=== PATIENT | male | born 1945 | race Caucasian/White ===

== ENCOUNTER 2018-05-20 10:31 | Emergency (ER) | payer OTHER, SELFPAY ==
[2018-05-20] VITALS (34 sets, daily range): BP systolic 119–154; BP diastolic 77–110; PULSE 63–76; RESP 14–42; TEMP 36.7; O2SAT 90–96
--- NOTE | 2018-05-20 11:16 | DI.CT_ITS ---
SYMPTOMS/DIAGNOSIS: FACIAL BRUISE, PARESTHESIA DIGITS 3-5, MID THORACIC BACK PAIN S/P FALL 10-12 FEET [address]: Noncontrast cranial CT was performed. No calvarial fracture identified. Visualized paranasal sinuses and mastoid air cells appear clear. There is soft tissue hematoma/edema over the left frontotemporal region. No evidence of acute intracranial hemorrhage, mass effect or midline shift. CONCLUSION: No evidence of acute intracranial injury. CERVICAL SPINE CT: CT examination of the cervical spine was performed utilizing multislice acquisition and multiplanar reconstruction. The tracheolaryngeal structures appear intact. No gross soft tissue swelling is seen in the cervical region. No cervical mass or adenopathy seen. There are moderate degenerative changes of the joints of the cervical spine. Note is made of a minimally displaced fracture through the lamina and articular facets on the right at C7. C7 vertebral body appears intact. There is a fracture of the T1 vertebral body, which involves the anterior superior aspect of the vertebral body with mild loss of height anteriorly. No posterior element fracture identified involving T1. T2 appears intact as visualized. No additional cervical spine fractures seen. CONCLUSION: 1. C7 fracture, essentially nondisplaced, involving lamina and facets on the right. 2. T1 vertebral body fracture anterosuperiorly with mild loss of height. 3. No gross deformity of the spinal canal identified. No unstable fractures seen. THORACIC AND LUMBAR SPINE CT: CT examination of the thoracic and lumbar spine was performed utilizing multislice acquisition and multiplanar reconstruction. Note is again made of T1 anterior superior vertebral body fracture as noted on cervical spine CT, as well as the C7 right lamina/facet fracture. No additional fracture identified in thoracic or lumbar spine. Visualized lungs appear clear. Tracheobronchial tree appears intact. There is an aneurysm of the ascending aorta measuring about 51 mm in diameter. There is an abdominal aortic aneurysm measuring 47 mm in diameter, which is infrarenal. 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 Incidental note is made of a presumed right renal cyst measuring 27 mm in diameter. CONCLUSION: 1. T1 vertebral body fracture, presumably stable. No additional fractures seen. 2. 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
--- NOTE | 2018-05-20 11:20 | W.ED.GENAD ---
Discharge Plan Disposition Patient Disposition: [facility] Discharge Details Chief Complaint: Trauma Clinical Impression: C7 cervical fracture, Fracture of thoracic spine at T1-T2 level, Paresthesia Primary Care Provider: Conchita Leggett ED Provider: Jeff Uribe Home Meds and New Rx's Prescriptions: No Action bupropion HCl 300 mg tablet extended release 24 hr 300 mg PO QAM Qty: 90 RF: 1 bupropion HCl 150 mg tablet extended release 24 hr 450 mg PO QAM Qty: 270 RF: 2 venlafaxine 75 mg capsule,extended release 24hr 75 mg PO DAILY Qty: 90 RF: 3 Hold Instructions: Changed by Provider venlafaxine 37.5 mg tablet extended release 24hr 37.5 mg PO DAILY Qty: 90 RF: 3 Hold Instructions: Changed by Provider irbesartan 300 mg tablet 300 mg PO DAILY RF: 0 venlafaxine 150 mg capsule,extended release 24hr 150 mg PO DAILY RF: 0 nystatin 100,000 unit/gram powder 1 applic TP BID PRN (Reason: intertrigo) Qty: 180 RF: 3 FreeStyle Lite Strips strip 1 ea Miscellaneous DAILY Qty: 100 RF: 0 aspirin [Aspir-81] 81 MG tablet,delayed release (DR/EC) 1 tab PO DAILY RF: 0 Hold Instructions: Changed by Provider ropinirole 1 MG tablet 2 tab PO HS RF: 0 lancets [FreeStyle Lancets] 1 EACH misc 1 ea Miscellaneous DAILY Qty: 100 RF: 3 metformin 750 mg tablet extended release 24 hr 750 mg PO DAILY Qty: 90 RF: 3 atorvastatin 40 mg tablet 40 mg PO DAILY Qty: 90 RF: 3 celecoxib 200 mg capsule 200 mg PO DAILY Qty: 90 RF: 3 Hold Instructions: Changed by Provider irbesartan-hydrochlorothiazide [Avalide] 150-12.5 mg tablet 2 tab PO DAILY Qty: 180 RF: 3 Hold Instructions: Changed by Provider omeprazole 40 mg capsule,delayed release(DR/EC) 40 mg PO DAILY Qty: 90 RF: 3 metoprolol succinate 50 mg tablet extended release 24 hr 50 mg PO DAILY Qty: 90 RF: 1 amlodipine 10 mg tablet 10 mg PO DAILY RF: 0 Hold Instructions: Changed by Provider lactulose 20 gram/30 mL solution 20 gm PO DAILY PRNRF: 0 vitamin B complex 1 EACH capsule 1 cap DAILY RF: 0 acetaminophen [Acetaminophen Extra Strength] 500 mg Tablet 1,000 mg PO Q6H PRNRF: 0 diphenhydramine HCl 25 MG capsule 25 mg PO DAILY RF: 0 Discharge Data Discharge Date/Time-TO BE ENTERED AT DEPARTURE: 05/20/18 14:40 Medical Decision Making 11:20 --73-year-old male presents 4 days after fall from 6 foot ladder with head trauma, complaining of midline mid back pain. Paresthesia bilateral hands improving. Rigid collar placed by nursing in triage. Patient has considerable facial ecchymosis. Consider intracranial traumatic hemorrhage versus skull fracture. Plan to CT head. Patient has had paresthesias that are improved bilateral hands digits 3-5. Consider cervical fracture versus spinal contusion. Plan to obtain CT of the cervical spine. I am concerned about spinal fracture given pain. I will obtain CT of the thoracic and lumbar spine. Patient does have a history of AAA, has no abdominal tenderness or pain. 14:00 --I spoke with Dr. West about radiology results: CT head negative. No bleed no fracture. CT cervical spine reveals C7 posterior element fracture. CT thoracic spine shows T1 anterior vetebral body fracture. An aspen collar was applied and properly fitted by me while nursing maintained cspine immobility. Incidental findings of ascending aortic aneurysm and AAA noted. Ascending aortic aneurysm was noted on prior echocardiogram 03/16/2017. Chest x-ray reviewed: No pneumothorax. Called [facility] to request consultation. Awaiting return call. Images sent for review. 14:09 -- I spoke with Dr. Tinsley - will accept transfer. HPI General Mode of arrival: ambulatory. Date/Time Provider Initiated Documentation: 05/20/18 10:54. Limitations to Documentation: no limitations. Information obtained by: patient. HPI Narrative: 73-year-old male with multiple medical problems presents with chief complaint of back pain. Patient notes he was standing 6 feet up on a ladder 4 days ago and fell to the ground. He did hit his head. He did not lose consciousness. He immediately developed paresthesia tingling of his right third to fifth digits. He subsequently developed tingling of his left third to fifth digits. This tingling has improved and now only feels slightly swollenbilaterally. Had no weakness in his hands. He denies neck pain. He does have substantial bruising to his face and forehead. Back pain started after the fall. Back pain is worse in the morning. Improves through the course of the day. Pain is moderate to severe. Localized mid back midline. Feels sore. Patient denies chest pain, shortness of breath, abdominal pain, pelvic pain. Patient is on low-dose aspirin daily. Also on Celebrex. Related Data Home Medications Medication Instructions Recorded Confirmed aspirin [Aspir-81] 1 tab PO DAILY tab 05/24/12 06/04/18 ropinirole 2 tab PO HS 05/29/12 06/04/18 vitamin B complex 1 cap DAILY 04/23/13 06/04/18 lancets [FreeStyle Lancets] #100 ea 05/31/16 06/04/18 diphenhydramine HCl 25 mg PO DAILY 08/06/17 06/04/18 metformin ER 750 mg 750 mg PO DAILY #90 tab-cap 10/30/17 06/04/18 tablet,extended release 24 hr atorvastatin 40 mg tablet 40 mg PO DAILY #90 tab-cap 11/21/17 06/04/18 celecoxib 200 mg capsule 200 mg PO DAILY #90 tab-cap 11/21/17 06/04/18 irbesartan 150 2 tab PO DAILY #180 tab 11/21/17 05/20/18 mg-hydrochlorothiazide 12.5 mg tablet bupropion HCl XL 300 mg 24 hr 300 mg PO QAM #90 tab 01/01/18 06/04/18 tablet, extended release omeprazole 40 mg capsule,delayed 40 mg PO DAILY #90 cap.sr 03/19/18 06/04/18 release bupropion HCl XL 150 mg 24 hr 450 mg PO QAM #270 tab 04/09/18 06/04/18 tablet, extended release metoprolol succinate ER 50 mg 50 mg PO DAILY #90 tab 04/17/18 06/04/18 tablet,extended release 24 hr venlafaxine ER 37.5 mg 37.5 mg PO DAILY #90 tab-cap 05/07/18 06/04/18 tablet,extended release 24 hr venlafaxine ER 75 mg 75 mg PO DAILY #90 tab-cap 05/07/18 06/04/18 capsule,extended release 24 hr acetaminophen [Acetaminophen Extra 1,000 mg PO Q6H PRN 05/20/18 06/04/18 Strength] amlodipine 10 mg tablet 10 mg PO DAILY 05/30/18 06/04/18 lactulose 20 gram/30 mL oral 20 gm PO DAILY PRN ml 05/30/18 06/04/18 solution blood sugar diagnostic strips #100 strip 06/04/18 06/04/18 irbesartan 300 mg tablet 300 mg PO DAILY 06/04/18 06/04/18 nystatin 100,000 unit/gram topical 1 applic TP BID PRN #180 gm 06/04/18 06/04/18 powder venlafaxine ER 150 mg 150 mg PO DAILY 06/04/18 06/04/18 capsule,extended release 24 hr Previous Rx's Medication Instructions Recorded metformin ER 750 mg 750 mg PO DAILY #90 tab-cap 10/30/17 tablet,extended release 24 hr atorvastatin 40 mg tablet 40 mg PO DAILY #90 tab-cap 11/21/17 celecoxib 200 mg capsule 200 mg PO DAILY #90 tab-cap 11/21/17 irbesartan 150 2 tab PO DAILY #180 tab 11/21/17 mg-hydrochlorothiazide 12.5 mg tablet bupropion HCl XL 300 mg 24 hr 300 mg PO QAM #90 tab 01/01/18 tablet, extended release omeprazole 40 mg capsule,delayed 40 mg PO DAILY #90 cap.sr 03/19/18 release bupropion HCl XL 150 mg 24 hr 450 mg PO QAM #270 tab 04/09/18 tablet, extended release metoprolol succinate ER 50 mg 50 mg PO DAILY #90 tab 04/17/18 tablet,extended release 24 hr venlafaxine ER 37.5 mg 37.5 mg PO DAILY #90 tab-cap 05/07/18 tablet,extended release 24 hr venlafaxine ER 75 mg 75 mg PO DAILY #90 tab-cap 05/07/18 capsule,extended release 24 hr blood sugar diagnostic strips #100 strip 06/04/18 nystatin 100,000 unit/gram topical 1 applic TP BID PRN #180 gm 06/04/18 powder Allergies Allergy/AdvReac Type Severity Reaction Status Date / Time codeine AdvReac Intermediate N/V Verified 06/04/18 10:07 General Stated Complaint: Trauma SUHAS: 3 Review of Systems Review of Systems All systems reviewed & are unremarkable except as noted in HPI and below PFSH Medical History AAA (abdominal aortic aneurysm) (Acute) Surgical History Arthroplasty of knee Extraction of cataract Great toe implant (12/01/14) Repair of inguinal hernia Tonsillectomy and adenoidectomy Family History Mother Substance abuse Diabetes Essential hypertension Hyperlipidemia Sister Neoplasm Social History Smoking/Tobacco Use Status: Former Tobacco Use Alcohol Intake: current Alcohol Intake frequency: holidays/special occasions only Drug use: Never Substance use type: does not use Household members: family Housing: house What type of physical activity do you participate in: none 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 Working smoke detector in home: Yes Fire extinguisher in home: Yes Carbon monox detector in home: Yes Do you feel safe in your relationship?: Yes Exam Const General: cooperative and no acute distress HENMT Head: no palpable skull fracture, raccoon eyes, scalp tenderness (left frontal) and periorbital ecchymosis Ears: other (tragus with bruising left) Mouth: moist mucous membranes Eyes Conjunctivae: normal conjunctivae Sclera: normal sclerae EOM: EOM intact bilaterally Neck Neck: trachea midline, supple and other (collar intact) Chest Chest: no localized rib tenderness Resp Auscultation: clear to auscultation bilaterally, no rales, no rhonchi and no wheezes Cardio Jugular venous pressure: no JVD Rate: regular rate and not tachycardic Rhythm: regular rhythm GI Palpation: soft, not firm, no guarding, no masses, not rigid and nontender Back/Spine/Pelvis Back: ecchymosis (Left mid lateral back bruising noted, no significant tenderness in the area) Thoracic/Lumbar Spine: thoracic spinal tenderness (midline low thoracic) Pelvis: no pain with anterior-posterior compression and no pain with lateral compression Skin General skin exam: no rashes or lesions noted Neuro General: alert, awake, oriented x3 and tone normal Cranial Nerves: CN's II-XI intact bilaterally Speech: speech normal Motor: muscle tone normal throughout and strength 5/5 throughout Sensory Exam: no sensory deficits noted Extrem General: no edema Course Vital Signs Temperature 36.7 C 05/20/18 10:42 Pulse 74 05/20/18 10:42 Respiratory Rate 20 05/20/18 10:42 Blood Pressure 141/101 H 05/20/18 10:42 Pulse Oximetry 95 05/20/18 10:42 Temperature 36.7 C 05/20/18 10:42 Temperature Source Temporal Artery Scan 05/20/18 10:42 Pulse 74 05/20/18 10:42 Respiratory Rate 20 05/20/18 10:42 Respiratory Effort Non-Labored 05/20/18 10:57 Respiratory Depth Normal 05/20/18 10:57 Respiratory Pattern Normal 05/20/18 10:57 Blood Pressure 141/101 H 05/20/18 10:42 Blood Pressure Position Supine 05/20/18 10:42 Pulse Oximetry 95 05/20/18 10:42 Oxygen Delivery Method Room Air 05/20/18 10:42 Oxygen Flow Rate 0 05/20/18 10:42 Pain Level 8 05/20/18 10:42
[2018-05-20 12:19] LABS: Abs Immature Grans 0.03 k/cumm (0.0-0.09); Absolute Basophil Count 0.02 k/cumm (0.0-0.2); Absolute Eosinophil Count 0.15 k/cumm (0.0-0.7); Absolute Lymphocyte Count 1.66 k/cumm (1.2-3.4); Absolute Monocyte Count 1.28 k/cumm (0.11-0.7); Absolute Neutrophil Count 6.97 k/cumm (1.2-6.7); Basophils % 0.2; Eosinophils % 1.5; HCT 43.7 % (40.0-50.0); HGB 14.5 g/dL (13.5-17.5); Immature Grans % 0.3; Lymphocytes % 16.4; Mean Corp. HGB Concentration 33.2 g/dL (32.0-36.0); Mean Corpuscular Volume 90.3 fL (80-95); Monocytes % 12.7; Neutrophils % 68.9; Platelet Count 176 x1000/uL (130-400); RBC 4.84 m/cumm (4.50-6.00); RBC Distribution Width 14.6 % (11.8-14.1); White Blood Cell Count 10.11 k/cumm (4.4-10.8)
[2018-05-20 12:32] LABS: ALT 74 U/L (12-78); AST 37 U/L (15-37); Albumin 3.8 g/dL (3.4-5.0); Alkaline Phosphatase 94 U/L (46-116); Anion Gap 12.9 mmol/L (3-11); BUN 18 mg/dL (7-18); Bilirubin, Total 1.2 mg/dL (0.2-1.0); CO2 25.1 mmol/L (21.0-32.0); CREATININE 1.02 mg/dL (0.70-1.30); Calcium 9.6 mg/dL (8.5-10.1); Chloride 100 mmol/L (98-107); Glucose 124 mg/dL (70-100); Potassium 3.4 mmol/L (3.5-5.1); Sodium 138 mmol/L (136-145); Total Protein 7.9 g/dL (6.4-8.2)
--- NOTE | 2018-05-20 13:35 | DI.RAD_ITS ---
SYMPTOMS/DIAGNOSIS: TIBIAL PAIN, SWELLING, TENDERNESS TO PALPATION ANTERIOR S/P FALL 10-12 FEET RIGHT LEG: Four views were obtained. No fracture is seen. The ankle mortise appears well maintained. SUPINE AP CHEST: The heart is not enlarged. The lungs appear grossly clear and well expanded. CONCLUSION: No evidence of acute disease.
== END 2018-05-20 14:40 | disposition short-term general hospital (02) ==
PROVIDERS: Emergency Provider Student in an Organized Health Care Education/Training Program; PCP Internal Medicine
DX: S12.600A Unspecified displaced fracture of seventh cervical vertebra, initial encounter for closed fracture (principal); S22.019A Unspecified fracture of first thoracic vertebra, initial encounter for closed fracture; R20.2 Paresthesia of skin; I71.4 Abdominal aortic aneurysm, without rupture; W11.XXXA Fall on and from ladder, initial encounter; E11.9 Type 2 diabetes mellitus without complications
CPT/HCPCS: 80053; 99284; L0172; 70450; 71045; 72125; 72128; 72131; 73590; 85025

== ENCOUNTER 2018-11-16 10:31 | Emergency (ER) | payer OTHER, SELFPAY ==
[2018-11-16 10:36] VITALS: BP 176/108; PULSE 70; RESP 16; TEMP 36.8; O2SAT 98
--- NOTE | 2018-11-16 10:54 | ED.GENADUL_ITS ---
Discharge Plan Disposition Patient Disposition: HOME Condition: Improving Discharge Details Chief Complaint: Laceration Clinical Impression: Laceration of left thumb Primary Care Provider: Conchita Leggett ED Provider: Wes Shrestha Home Meds and New Rx's Prescriptions: Continued [id number] [Pcltap-Oahel-SAA (with antiox)] 500-500-66.7 mg tablet PO DAILY RF: 0 PreserVision AREDS 14,320-226-200 nree-ij-kgad capsule 1 cap PO BID RF: 0 bupropion HCl 150 mg tablet extended release 24 hr 450 mg PO QAM Qty: 270 RF: 2 nystatin 100,000 unit/gram powder 1 applic TP BID PRN (Reason: intertrigo) Qty: 180 RF: 3 (DME) FreeStyle Lite Strips strip 1 ea Miscellaneous DAILY Qty: 100 RF: 0 diclofenac sodium [Voltaren] 1 % gel 4 gm TP QID Qty: 100 RF: 3 amlodipine 5 mg tablet 5 mg PO DAILY Qty: 90 RF: 3 metoprolol succinate 50 mg tablet extended release 24 hr 50 mg PO DAILY Qty: 90 RF: 3 atorvastatin 40 mg tablet 40 mg PO DAILY Qty: 90 RF: 3 aspirin [Aspir-81] 81 MG tablet,delayed release (DR/EC) 1 tab PO DAILY RF: 0 Hold Instructions: Changed by Provider ropinirole 1 MG tablet 2 tab PO HS RF: 0 (DME) lancets [FreeStyle Lancets] 1 EACH misc 1 ea Miscellaneous DAILY Qty: 100 RF: 3 metformin 750 mg tablet extended release 24 hr 750 mg PO DAILY Qty: 90 RF: 3 celecoxib 200 mg capsule 200 mg PO DAILY Qty: 90 RF: 3 Hold Instructions: Changed by Provider omeprazole 40 mg capsule,delayed release(DR/EC) 40 mg PO DAILY Qty: 90 RF: 3 irbesartan 300 mg tablet 300 mg PO DAILY Qty: 90 RF: 3 vitamin B complex 1 EACH capsule 1 cap DAILY RF: 0 acetaminophen [Acetaminophen Extra Strength] 500 mg Tablet 1,000 mg PO Q6H PRNRF: 0 gabapentin 100 mg capsule 300 mg PO DAILY RF: 0 diphenhydramine HCl 25 MG capsule 25 mg PO DAILY RF: 0 Discharge Instructions Instructions: Laceration (ED) Additional Instructions: Return for fever, redness, foul-smelling discharge from the wound or any other acute concerns. Please follow-up with orthopedics in clinic. Call the office for a follow-up appointment. The number is [phone]. May use Tylenol and ibuprofen as needed for discomfort. Medical Decision Making 73-year-old male was using a table saw, pushing the word with his left hand when he felt immediate pain and bleeding on the volar surface of the left thumb. His tetanus status is up-to-date. On exam he is a macerated and irregular laceration on the distal volar surface of the thumb. Two-point discrimination is intact on both sides at 1 cm, patient with single-point discrimination only on the distal volar pad of the thumb. Referred for x-ray which does not reveal underlying bony injury. Wound irrigated and 3 sutures placed with wound edge opposition, dressed with Xeroform and Kerlix. We will refer to orthopedics for recheck given both the partial avulsion of skin and the diminished sensation. He and his who is a nurse understand homecare as well as return precautions. HPI General Mode of arrival: ambulatory . Date/Time Provider Initiated Documentation: 11/16/18 10:38 . Limitations to Documentation: no limitations . Information obtained by: patient . History of Present Illness 73 year old M presents to the emergency department with the chief complaint of Left thumb laceration from table saw, described as moderate, Quality is described as constant, and is localized to the left and upper extremity. Patient reports no radiation. Patient started experiencing this hour(s) and it has been constant. No relieving factors improve symptom(s), No exacerbating factors reported . Patient notes no other symptoms.. Patient did receive the following treatments prior to arrival, none Related Data Home Medications Medication Instructions Recorded Confirmed aspirin [Aspir-81] 1 tab PO DAILY tab 05/24/12 11/16/18 ropinirole 2 tab PO HS 05/29/12 11/16/18 vitamin B complex 1 cap DAILY 04/23/13 11/16/18 lancets [FreeStyle Lancets] #100 ea 05/31/16 10/30/18 diphenhydramine HCl 25 mg PO DAILY 08/06/17 11/16/18 metformin 750 mg tablet,extended 750 mg PO DAILY #90 tab-cap 10/30/17 11/16/18 release 24 hr celecoxib 200 mg capsule 200 mg PO DAILY #90 tab-cap 11/21/17 11/16/18 omeprazole 40 mg capsule,delayed 40 mg PO DAILY #90 cap.sr 03/19/18 11/16/18 release bupropion HCl 150 mg 24 hr tablet, 450 mg PO QAM #270 tab 04/09/18 11/16/18 extended release acetaminophen [Acetaminophen Extra 1,000 mg PO Q6H PRN 05/20/18 11/16/18 Strength] blood sugar diagnostic #100 strip 06/04/18 10/30/18 nystatin 100,000 unit/gram topical 1 applic TP BID PRN #180 gm 06/04/18 11/16/18 powder irbesartan 300 mg tablet 300 mg PO DAILY #90 tab 06/17/18 11/16/18 [id number]-[id number] tab PO DAILY tab 07/02/18 10/30/18 149-hyalur 500 mg-500 mg-66.7 mg tablet vitamins A,C,A-laag-rislkp 14,320 1 cap PO BID 07/02/18 11/16/18 unit-226 mg-200 unit capsule diclofenac sodium 1 % topical gel 4 gm TP QID #100 gm 10/30/18 11/16/18 amlodipine 5 mg tablet 5 mg PO DAILY #90 tab 10/31/18 11/16/18 atorvastatin 40 mg tablet 40 mg PO DAILY #90 tab-cap 10/31/18 11/16/18 metoprolol succinate 50 mg 50 mg PO DAILY #90 tab 10/31/18 11/16/18 tablet,extended release 24 hr gabapentin 300 mg PO DAILY 11/16/18 11/16/18 Previous Rx's Medication Instructions Recorded metformin 750 mg tablet,extended 750 mg PO DAILY #90 tab-cap 10/30/17 release 24 hr celecoxib 200 mg capsule 200 mg PO DAILY #90 tab-cap 11/21/17 omeprazole 40 mg capsule,delayed 40 mg PO DAILY #90 cap.sr 03/19/18 release bupropion HCl 150 mg 24 hr tablet, 450 mg PO QAM #270 tab 04/09/18 extended release blood sugar diagnostic #100 strip 06/04/18 nystatin 100,000 unit/gram topical 1 applic TP BID PRN #180 gm 06/04/18 powder irbesartan 300 mg tablet 300 mg PO DAILY #90 tab 06/17/18 diclofenac sodium 1 % topical gel 4 gm TP QID #100 gm 10/30/18 amlodipine 5 mg tablet 5 mg PO DAILY #90 tab 10/31/18 atorvastatin 40 mg tablet 40 mg PO DAILY #90 tab-cap 10/31/18 metoprolol succinate 50 mg 50 mg PO DAILY #90 tab 10/31/18 tablet,extended release 24 hr Allergies Allergy/AdvReac Type Severity Reaction Status Date / Time codeine AdvReac Intermediate N/V Verified 10/30/18 11:15 General Stated Complaint: Laceration SUHAS: 4 Review of Systems Review of Systems Narrative: Decreased sensation at the tip of thumb. No other injury. Tetanus up-to-date. [facility] Medical History AAA (abdominal aortic aneurysm) (Acute) Surgical History Arthroplasty of knee Extraction of cataract Great toe implant (12/01/14) Jason Aviles Repair of inguinal hernia Tonsillectomy and adenoidectomy Family History Mother Substance abuse Diabetes Essential hypertension Hyperlipidemia Sister Neoplasm lung Ca with Mets Social History Smoking/Tobacco Use Status: Former Tobacco Use Alcohol Intake: current Alcohol Intake frequency: holidays/special occasions only Drug use: Never Substance use type: does not use Household members: spouse Housing: house Communication Needs: Corrective Lenses current occupation: retired What is your relationship status?: Panel score (0-1 are the most socially isolated patients): [address] 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 Pleasant, well groomed, interactive. HEAD: Normocephalic, atraumatic ENT: Mucous membranes moist, oropharynx unremarkable, External ear exam unremarkable EYES: PERRL, EOMI NECK: Full ROM, no CORKY, no menigismus EXT: Full ROM, no edema, no rash. Left thumb with volar oblique laceration. Two-point discrimination intact on chest sides of the digit, diminished sensation and unable to discriminate 2 points on distal pad of the thumb. Capillary refill less than 2 seconds. Neuro: Grossly normal neurologic exam, conversant, interactive. Psych: Speech fluent, thoughts congruent, affect normal Course Vital Signs Vital signs: Vital Signs Temperature 36.8 C 11/16/18 10:36 Pulse 70 11/16/18 10:36 Respiratory Rate 16 11/16/18 10:36 Blood Pressure 176/108 H 11/16/18 10:36 Pulse Oximetry 98 11/16/18 10:36 Temperature 36.8 C 11/16/18 10:36 Temperature Source Skin 11/16/18 10:36 Pulse 70 11/16/18 10:36 Respiratory Rate 16 11/16/18 10:36 Respiratory Effort Non-Labored 11/16/18 10:45 Blood Pressure 176/108 H 11/16/18 10:36 Pulse Oximetry 98 11/16/18 10:36 Pain Level 2 11/16/18 10:36 Procedures Laceration Laceration 1: Site: hand Side (If applicable): left Size (cm): 3.5 Description: irregular Depth: involves muscle layer Local Anesthetic: Lidocaine 1% Pre-repair: wound explored and irrigated extensively Skin layer closed with: nylon Size (cm): 4-0 Number of sutures: 3 Technique: simple, interrupted
--- NOTE | 2018-11-16 11:23 | DI.RAD_ITS ---
EXAM: XR THUMB LT CLINICAL HISTORY: palmar laceration. TECHNIQUE: 2D digital imaging was performed. COMPARISON: Comparison examination is 11/17/2013 FINDINGS: BONES: No acute fracture is present. No bony destructive lesion is seen. JOINTS: There are degenerative changes seen at the interphalangeal joint of the thumb. SOFT TISSUE: There is soft tissue swelling of the thumb. No radiopaque foreign bodies are seen in th e soft tissues. IMPRESSION: No evidence of acute fracture, dislocation, or subluxation.
--- NOTE | 2018-11-16 12:19 | DI.VRAD_ITS ---
PROCEDURE INFORMATION: Exam: XR Left Finger(s) Exam date and time: 11/16/2018 11:16 AM Clinical history: 73 years old, male; Pain; Finger(s); Patient HX: Left thumb injury after cutting wood this morning. Palmar laceration. TECHNIQUE: Imaging protocol: XR Left fingers. Views: Minimum 2 views. COMPARISON: CR LEFT HAND COMPLETE 11/17/2013 2:46 PM FINDINGS: Bones/joints: Degenerative changes in the thumb carpometacarpal joint There is no evidence of acute fracture.There is no evidence of malalignment or dislocation.. Soft tissues: Soft tissue swelling of the thumb. IMPRESSION: 1. Soft tissue swelling of the thumb. 2. There is no evidence of acute fracture.There is no evidence of malalignment or dislocation.. Dictated and Authenticated by: Olga Michele MD. Ordering:TAMIA Harvey MD
== END 2018-11-16 12:28 | disposition home or self-care (01) ==
PROVIDERS: Emergency Provider Emergency Medicine; PCP Internal Medicine
DX: S61.012A Laceration without foreign body of left thumb without damage to nail, initial encounter (principal); W31.2XXA Contact with powered woodworking and forming machines, initial encounter; I10 Essential (primary) hypertension; E11.9 Type 2 diabetes mellitus without complications; Z79.84 Long term (current) use of oral hypoglycemic drugs
CPT/HCPCS: 12001; 99283; 73140; 99282

== ENCOUNTER 2019-09-16 07:11 | Outpatient (CLI) | payer OTHER, SELFPAY ==
[2019-09-18 21:21] LABS: COVID-19 RT-PCR Result NEGATIVE (Negative)
== END 2019-09-16 07:31 ==
PROVIDERS: PCP Internal Medicine; Visit Provider Surgery
DX: Z01.818 Encounter for other preprocedural examination (principal)
CPT/HCPCS: U0003

== ENCOUNTER 2019-09-19 07:53 | Day surgery (SDC) | payer OTHER, SELFPAY ==
[2019-09-19 08:05] VITALS: BP 129/84; PULSE 75; RESP 16; TEMP 36.1; O2SAT 94
--- NOTE | 2019-09-19 08:38 | W.PM.DSUDISC ---
Discharge Plan Disposition Patient Disposition: HOME Condition: Good Discharge Details Reason For Visit: Colonoscopy Attending Provider: Pamela Pepper Primary Care Provider: Conchita Leggett Home Meds and New Rx's Prescriptions: Continued [id number]-[id number] [Fcxuqj-Qxjlm-IVF (with antiox)] 500-500-66.7 mg tablet PO BID RF: 0 PreserVision AREDS 14,320-226-200 ddky-hd-rvms capsule 1 cap PO BID RF: 0 albuterol sulfate [ProAir HFA] 90 mcg/actuation HFA aerosol inhaler 2 puff Inhalation Q6H PRN Qty: 3 RF: 1 nystatin 100,000 unit/gram powder 1 applic TP BID PRN (Reason: intertrigo) Qty: 180 RF: 3 (DME) lancets [FreeStyle Lancets] 28 gauge misc 1 ea Miscellaneous DAILY Qty: 100 RF: 1 (DME) FreeStyle Lite Strips Strip 1 ea Miscellaneous DAILY Qty: 100 RF: 3 metoprolol succinate 50 mg tablet extended release 24 hr 50 mg PO DAILY Qty: 90 RF: 3 atorvastatin 40 mg tablet 40 mg PO DAILY Qty: 90 RF: 3 ropinirole 2 mg tablet 2 mg PO QHS RF: 0 omeprazole 40 mg capsule,delayed release(DR/EC) 40 mg PO DAILY Qty: 90 RF: 2 aspirin [Aspir-81] 81 MG tablet,delayed release (DR/EC) 1 tab PO DAILY RF: 0 Hold Instructions: Changed by Provider celecoxib 200 mg capsule 200 mg PO DAILY Qty: 90 RF: 3 Hold Instructions: Changed by Provider vitamin B complex 1 EACH capsule 1 cap DAILY RF: 0 acetaminophen [Acetaminophen Extra Strength] 500 mg Tablet 1,000 mg PO Q6H PRNRF: 0 diphenhydramine HCl 25 mg capsule 25 mg PO HS RF: 0 metformin 750 mg tablet extended release 24 hr 750 mg PO HS RF: 0 fluoxetine [Prozac] 40 mg capsule 40 mg PO DAILY RF: 0 amlodipine [Norvasc] 5 mg tablet 5 mg PO DAILY RF: 0 irbesartan [Avapro] 300 mg tablet 300 mg PO DAILY RF: 0 bupropion HCl [Wellbutrin XL] 150 mg tablet extended release 24 hr 450 mg PO QAM RF: 0 Discontinued bisacodyl [Dulcolax (bisacodyl)] 5 mg tablet,delayed release (DR/EC) 5 mg PO ONCE Qty: 4 RF: 0 polyethylene glycol 3350 17 gram/dose powder 17 g PO ONCE Qty: 238 RF: 0 Discharge Instructions Additional Instructions: Findings: Your colonoscopy was normal. Follow up: You do not need to have further routine colon screening, but colonoscopy can be considered if new symptoms such as rectal bleeding or change in bowel habits.arise. Please call if you develop: fevers >101.5 Nausea or Vomiting Abdominal pain that is not transient DAY SURGERY UNIT POST COLONOSCOPY INSTRUCTIONS 1. Because there will be medication in your system for the next 24 hours, you may feel a little sleepy. Your coordination will be affected. Therefore: a. Do not drive or operate dangerous equipment for 24 hours. b. Do not drink alcohol beverages for 24 hours (not even beer). c. Plan to go home and rest for the day. 2. Generally there are no restrictions on your activity after a day or so has gone by, but you may feel a bit fatigued for a few days. 3 After you arrive home you may have a light meal and return to a normal diet as you can tolerate it without feeling sick to your stomach. 4. After surgery, you may feel pain or discomfort. This should be only transient, but if it persists please contact your doctor. 5. If there are any questions regarding the findings of your procedure, please feel free to contact your doctor. 6. If you are unable to contact your doctor with a problem, contact the hospital at [phone]. 7. Continue all your regular medications unless directed otherwise. I understand the above instructions and have no questions. Signature of Patient or Responsible Adult Escort Date/Time Name of Responsible Adult Escort Signature of Nurse Date/Time Activity:: Activity as Tolerated Diet:: As Tolerated Discharge Orders Discharge Orders: Discharge Order (Routine); Ordered 09/19/19 Ordered By: Pamela Pepper DS: Diagnosis Discharge Diagnosis (1) Colon cancer screening: Status: Acute
[2019-09-19] MEDS: Lactated Ringers 1,000 ML 80 ML IV (08:45)
--- NOTE | 2019-09-19 09:42 | W.COLOREPORT ---
Date of service: 09/19/19 Time of Service: 09:42 Colonoscopy Report Date of procedure: 09/19/19 Pre-op diagnosis general: Screening Post-op diagnosis procedure note: other (Normal colon) Procedure: Colonoscopy Surgeon: Pamela Pepper Anesthesia proc note operative: MAC Indications: This patient presents for routine colon evaluation. His last one in 2007 was normal. He has no symptoms or FH colon cancer. Procedure Description: The patient was placed in the left Lopez position. Propofol was titrated to sedation. Digital rectal examination revealed no abnormalities. The scope was advanced to the cecum without difficulty. The ileocecal valve and appendiceal orifice were clearly identified. The prep was good. The scope was slowly withdrawn over the course of greater than 6 minutes with no abnormalities seen in the ascending, transverse, descending, sigmoid colon or rectum including on retroflexed view. The patient tolerated the procedure well and was stable to recovery. Routine colon screening is not needed in the future but can be considered if symptoms arise.
[2019-09-19 10:00] VITALS: BP 140/92; PULSE 67; RESP 16; TEMP 36.2; O2SAT 93
== END 2019-09-19 10:20 | disposition home or self-care (01) ==
PROVIDERS: PCP Internal Medicine; Visit Provider Surgery
PROC: 0DJD8ZZ Inspection of Lower Intestinal Tract, Via Natural or Artificial Opening Endoscopic (ICD-10-PCS; CPT 45378; principal; 2019-09-19 09:15)
DX: Z12.11 Encounter for screening for malignant neoplasm of colon (principal)
CPT/HCPCS: 45378

== ENCOUNTER 2019-10-09 01:23 | Outpatient (CLI) | payer OTHER, SELFPAY ==
[2019-10-09 08:46] LABS: COMMENT (LAB VIEW ONLY) 130.61 mg/dL; Microalb ug/mg Crea 18.1 ug/mg Cr
[2019-10-09 09:04] LABS: Anion Gap 8.9 mmol/L (3-11); BUN 15 mg/dL (7-18); CO2 28.1 mmol/L (21.0-32.0); CREATININE 0.95 mg/dL (0.70-1.30); Calcium 9.7 mg/dL (8.5-10.1); Calculated LDL 90 mg/dL (<100); Chloride 105 mmol/L (98-107); Cholesterol 143 mg/dL (<200); Glucose 108 mg/dL (74-106); HDL Cholesterol 41 mg/dL (40-60); Potassium 3.9 mmol/L (3.5-5.1); Sodium 142 mmol/L (136-145); Triglyceride 62 mg/dL (<150)
== END 2019-10-09 01:43 ==
PROVIDERS: PCP Internal Medicine; Visit Provider Internal Medicine
DX: I10 Essential (primary) hypertension (principal); E11.9 Type 2 diabetes mellitus without complications; E78.00 Pure hypercholesterolemia, unspecified
CPT/HCPCS: 36415; 80048; 80061; 82043; 82570

== ENCOUNTER 2020-07-14 17:27 | Outpatient (REF) | payer OTHER, SELFPAY ==
[2020-07-14 21:38] LABS: HCT 45.8 % (40.0-50.0); HGB 15.6 g/dL (13.5-17.5); MCH 30.5 pg (27.0-33.0); MCHC 34.1 % (32.0-36.0); MCV 89.6 fL (80-95); MPV 11.3 fL (8.0-11.0); Platelet Count 191 10^3/uL (130-400); RBC 5.11 10^6/uL (4.36-5.78); RDW 13.9 % (11.8-14.1); RDW-SD 46.1 fL; WBC 8.31 10^3/uL (4.4-10.8)
[2020-07-14 21:44] LABS: ESR 18 mm/hr (0-20)
[2020-07-14 21:47] LABS: Anion Gap 9.6 mmol/L (3-11); BUN 14 mg/dL (7-18); CO2 26.4 mmol/L (21.0-32.0); Calcium 9.6 mg/dL (8.5-10.1); Chloride 104 mmol/L (98-107); Glucose 146 mg/dL (74-106); Potassium 3.8 mmol/L (3.5-5.1); Sodium 140 mmol/L (136-145)
[2020-07-14 21:49] LABS: C-Reactive Protein < 0.05 mg/dL (0.0-0.3)
[2020-07-15 18:23] LABS: PSA, Screening 4.9 ng/mL (0.0-6.5)
== END 2020-07-14 17:28 | disposition home or self-care (01) ==
LOC: NCHCN 17:27
PROVIDERS: Visit Provider Nurse Practitioner Family
DX: R51.9 Headache, unspecified (principal); F32.9 Major depressive disorder, single episode, unspecified; R01.1 Cardiac murmur, unspecified; Z12.5 Encounter for screening for malignant neoplasm of prostate
CPT/HCPCS: 80048; 82306; 84153; 85027; 85652; 86140

== ENCOUNTER 2020-08-04 00:41 | Outpatient (CLI) | payer OTHER, SELFPAY ==
--- NOTE | 2020-08-04 10:29 | DI.US_ITS ---
APPROVED REPORT EXAM: Comprehensive 2D, Doppler, and color-flow Echocardiogram Patient Location: Out-Patient Graphics Manager: Nikole Dior RDCS (AE) Indications: Heart Murmur Other Information Study Quality: Fair. Technically limited study due to body habitus. Conclusion Normal left ventricular wall thickness and chamber size. Estimated ejection fraction is 55 to 60%. Wall motion is normal Normal right ventricular size and systolic function Both atria are normal in size Aortic valve is trileaflet and sclerotic. There is mild aortic regurgitation. There is no aortic st enosis Normal tricuspid valve with mild regurgitation. Estimated right ventricular systolic pressure is nor mal at 27 mmHg Normal mitral valve with trace regurgitation Mildly dilated aortic root and ascending aorta Wall motion Left Ventricle The left ventricle is normal size. The left ventricular systolic function is normal. The left ventric ular ejection fraction is within the normal range. There is normal left ventricular wall thickness. T here is normal LV segmental wall motion. There is no ventricular septal defect visualized. LVEF is 59 %. Right Ventricle The right ventricle is normal size. The right ventricular systolic function is normal. The RVSP is 27 .1 mmHg. Atria The left atrium size is normal. The right atrium size is normal. The interatrial septum is intact wit h no evidence for an atrial septal defect. Aortic Valve The Aortic valve is sclerotic. Aortic valve is calcified. Aortic valve is probably trileaflet. No hem odynamically significant valvular aortic stenosis. Mild aortic regurgitation. Mitral Valve The mitral valve is normal in structure. No evidence of mitral valve stenosis. Trace mitral regurgita tion. Tricuspid Valve The tricuspid valve is normal in structure. There is no tricuspid valve stenosis. Mild tricuspid regu rgitation. Pulmonic Valve Pulmonic valve is not well visualized. There is no pulmonic valvular stenosis. Trace pulmonic regurgi tation. Great Vessels Aortic root is mildly dilated. The ascending aorta is mildly dilated. IVC is normal in size and colla pses >50% with inspiration. Pericardium There is no pericardial effusion. 2D Dimensions IVSD d PLAX 0.98 cm M: 0.6-1.2 LV Vol A2C d MOD 156.0 mL LVPW d PLAX 0.99 cm M: 0.6 - 1.2 LV Vol A4C d MOD 150.3 mL LVID d PLAX 5.73 cm M: 4.2 - 5.8 LA vol/ BSA A2C s A-L 23.1 mL/m2 LVDs 3.55 cm M: 2.5 - 4.0 LA vol/ BSA A4C s A-L 26.5 mL/m2 Ao Root d 4.14 cm M: 3.1 - 3.7 LA Vol/ BSA Biplane s A-L 25.2 mL/m2 RA Area A4C 19.48 cm2 LA Area A4C s MOD 20.08 cm2 RA Vol/ BSA A4C s A-L 22.3 mL/m2 LA Area A2C s MOD 19.13 cm2 Ao Asc Diam d 3.89 cm M: 2.6 - 3.4 LV EF A4C MOD 59.0 % LV EF Teichholz 66.9 % LV EF A2C MOD 57.6 % LVEF (Rajput's) 58.72 % M: 52 - 72 LV EF Biplane MOD 58.7 % LV Volume 109.54 mL M: 62 - 150 SV 90.95 mL LV Volume Index 45.45 mL/m2 M: 34 - 74 SV Index 37.70 mL/m2 LV Vol Biplane MOD 154.9 mL FS 37.55 % M-Mode TAPSE 2.09 cm (M/F) >1.7 LV Diastology MV E' medial 0.058 (>0.07 m/s) E/A Ratio 0.9 LV E/e MED 17.60 (<14) MV E Vmax 1.02 (0.4-1.3 m/s) MV E' lateral 0.089 (>0.1 m/s) MV A Vmax 1.10 (0.4-1.3 m/s) LV E/e LAT 11.45 (<14) MV E/A Ratio 0.90 MV E/E' medial 17.64 MV E/E' lateral 11.49 Aortic Valve LVOT Area 3.79 cm2 AoV Area Vmax 2.20 cm2 LVOT Vmax 1.22 m/s AoV Area/ BSA (Vmax) 0.91 cm2/m2 LVOT Mean Edison. 0.76 m/s RAFITA Mean Edison. 2.02 cm2 LVOT Peak Grad 6.0 mmHg RAFITA Mean Edison. Index 0.84 cm2/m2 LVOT Mean Grad 2.8 mmHg AR DT 2762 msec LVOT VTI 0.290 m AR PHT 801 msec LVOT Diam s 2.15 cm AoV Vmax 2.10 m/s Velocity Ratio 0.58 AoV Mean Edison. 1.42 m/s AoV Peak Grad 17.7 mmHg LVOT SV 109.88 mL AoV Mean Grad 9.4 mmHg AoV VTI 0.373 m AoV Area VTI 2.95 cm2 AoV Area/ BSA (VTI) 1.22 cm/m2 Mitral Valve MV DT 277 (160-240 msec) MV PHT 80 msec MV Area PHT 2.74 cm2 MV VTI 0.455 m MV VTI Annulus 0.471 m MV Area VTI 2.50 (4.0-6.0 cm2) Pulmonary Valve PV Vmax 1.32 (0.5-1.5 m/s) RVOT Peak Gr. 4.17 mmHg PV Peak Grad 7.0 mmHg RVOT Mean Gr. 2.35 mmHg PV Mean Grad 3.4 mmHg RVOT VTI 0.185 m PV VTI 0.238 m RVOT Vmax 1.02 m/s Tricuspid Valve TR Peak Grad 24.1 mmHg TR Vmax 2.46 m/s RA Pressure 3.00 mmHg RVSP (TR) 27.1 mmHg
== END 2020-08-04 01:01 ==
PROVIDERS: PCP Nurse Practitioner Family; Visit Provider Nurse Practitioner Family
DX: I77.810 Thoracic aortic ectasia (principal)
CPT/HCPCS: 93306

== ENCOUNTER 2020-09-20 15:51 | Outpatient (CLI) | payer OTHER, SELFPAY ==
[2020-09-20 11:40] LABS: TSH 1.65 uIU/mL (0.36-3.74); Vitamin B12 588 pg/mL (193-986)
== END 2020-09-20 15:52 | disposition home or self-care (01) ==
LOC: LBO 15:51
PROVIDERS: PCP Nurse Practitioner Family; Visit Provider Nurse Practitioner Adult Health
DX: R41.3 Other amnesia (principal)
CPT/HCPCS: 36415; 82607; 84443

== ENCOUNTER 2020-10-06 00:56 | Outpatient (CLI) | payer OTHER, SELFPAY ==
--- NOTE | 2020-10-06 07:15 | DI.MRI_ITS ---
Exam(s) MR BRAIN WO EXAM: MR BRAIN WO CLINICAL HISTORY: new memory problems,MEMORY DEFICIT,R41.3 TECHNIQUE: Multiplanar multisequence MRI of the brain was performed. COMPARISON: CT CT HEAD CERVICAL SPINE WO from 05/20/2018 FINDINGS: CEREBRAL PARENCHYMA: There is no evidence of intracranial hemorrhage, mass effect, or shift of midline structures. There are no extra-axial fluid collections. Ventricles are not enlarged or shifted. There is no significant focal signal abnormality in the cerebellar hemispheres. There is area of sig nal abnormality in the central leonardo seen on T2 and FLAIR imaging without abnormal signal at this loca tion seen on diffusion imaging. No abnormal signal in the mesencephalon nor in thalami. There is abundant abnormal patchy white matter signal in the Heidi in supra ventricular white matter. This is most confluent around the atria both lateral ventricles. There is no significant focal signal abnormality evident on diffusion imaging to suggest acute ischem ic event. PITUITARY GLAND: No mass nor parasellar abnormality. No obvious abnormality in the cavernous sinuses. FLOW VOIDS: Expected anterior circulation flow voids are noted. There is fusiform prominence of the supraclinoid aspect of the right internal carotid artery and proximal right middle cerebral artery. In the posterior circulation there is heavy circumferential calcification evident in the left vertebr al artery at the skull base and above this level there is absence of normal flow void within the lashay l segment of the left vertebral artery. There is normal flow void in the right vertebral artery and basilar artery. PARANASAL SINUSES: Clinical thickening and small fluid level noted in the left maxillary sinus. Righ t maxillary sinus is clear as are the sphenoid sinuses and frontal sinuses. ORBITS: No obvious findings. IMPRESSION: 1. There is abundant bilateral Heidi and supraventricular white matter ischemic changes, without evide nce of acute infarct. Also some increased signal leonardo. No abnormal intra-axial signal on diffusion imaging to suggest acute infarct. No evidence of intracranial hemorrhage. 2. At the skull base there is heavy calcification in the left vertebral artery and absence of normal flow void signal in the left vertebral artery above this level. 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 There is normal flow void in the distal right vertebral artery an d basilar artery. If clinically indicated further study with magnetic resonance angiography or CT an giography can be performed. 3. Fusiform dilatation the supraclinoid aspect of the right internal carotid artery as well as the pr oximal right middle cerebral artery, as was evident on prior CT scan of May 2018. DATA REPOSITORY:
== END 2020-10-06 01:16 ==
PROVIDERS: PCP Nurse Practitioner Family; Visit Provider Nurse Practitioner Adult Health
DX: R41.3 Other amnesia (principal); G93.89 Other specified disorders of brain; R90.82 White matter disease, unspecified
CPT/HCPCS: 70551

== ENCOUNTER 2020-10-28 13:55 | Outpatient (CLI) | payer OTHER, SELFPAY ==
--- NOTE | 2020-10-28 | DI.RAD_ITS ---
Exam(s) XR RIBS LT W PA LAT CHEST EXAM: XR RIBS LT W PA LAT CHEST CLINICAL HISTORY: LEFT SIDED RIB PAIN R07.81 COUGH R05, CONCERNED FOR RIB INJURY AND ASPIRATI. TECHNIQUE: 2D digital imaging was performed. COMPARISON: CR XR CHEST 2V PA LATERAL from 05/20/2018 FINDINGS: Heart size upper normal mediastinum is not widened. Descending thoracic aorta is noted to be tortuou s. Lungs are clear. No infiltrates nor pleural effusions. No pneumothorax. Left rib cage views reveal a very subtle nondisplaced fracture of the anterior aspect of a lower left rib, probably number 9. There is no pneumothorax IMPRESSION: Subtle nondisplaced fracture of the left 9th rib. No pneumothorax. No pleural effusion or lung cont usion. DATA REPOSITORY: RADIATION DOSE DELIVERED:
== END 2020-10-28 14:15 ==
PROVIDERS: PCP Nurse Practitioner Family; Visit Provider Physician Assistant Medical
DX: R07.81 Pleurodynia (principal); R05 Cough; S22.32XA Fracture of one rib, left side, initial encounter for closed fracture; X58.XXXA Exposure to other specified factors, initial encounter
CPT/HCPCS: 71046; 71100

== ENCOUNTER 2020-10-28 20:33 | Outpatient (REF) | payer OTHER, SELFPAY ==
[2020-10-30 15:09] LABS: COVID-19 RT-PCR UVMMC Result Negative (Negative)
== END 2020-10-28 20:34 | disposition home or self-care (01) ==
LOC: LBN 20:33
PROVIDERS: PCP Nurse Practitioner Family; Visit Provider Physician Assistant Medical
DX: Z20.822 Contact with and (suspected) exposure to COVID-19 (principal); R05 Cough
CPT/HCPCS: U0003

== ENCOUNTER 2020-10-29 04:48 | Outpatient (CLI) | payer OTHER, SELFPAY ==
--- NOTE | 2020-10-29 11:40 | DI.MRI_ITS ---
Exam(s) MR ANGIO BRAIN WO CLINICAL HISTORY: severe vasc disease on MRI w/ ? L vert occlusion I65.09 OCCLUSION AND. TECHNIQUE: 3D wpsm-cw-pbzacn MRA of the brain was performed. . COMPARISON: 06 October 2020 MRI of the brain FINDINGS: Approximately 10 millimeter length decreased visualization of the distal left vertebral artery. The extent appears less when compared with the previous brain MRI. Fusiform dilatation of the distal, dutton praclinoid portion of the right internal carotid artery is again noted. There is no evidence of diss ection. Remaining vessels are unremarkable. 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 The artery appears n ormal in diameter above and below this level. DATA REPOSITORY:
== END 2020-10-29 05:08 ==
PROVIDERS: PCP Nurse Practitioner Family; Visit Provider Nurse Practitioner Adult Health
DX: I65.09 Occlusion and stenosis of unspecified vertebral artery (principal)
CPT/HCPCS: 70544

== ENCOUNTER 2020-12-24 02:16 | Outpatient (CLI) | payer OTHER, SELFPAY ==
[2020-12-24] MEDS: Normal Saline - Diluent 50 ML VIAL IV (09:28)
[2020-12-24] MEDS: Omnipaque 350 MG/ML 100 ML BTL IJ (09:28)
[2020-12-24] MEDS: Normal Saline Flush 10 ML SYR IVP (09:29)
--- NOTE | 2020-12-24 09:30 | DI.CT_ITS ---
Exam(s) CT ABDOMEN PELVIS CTA EXAM: CT ABDOMEN PELVIS CTA CLINICAL HISTORY: AAA,I71.4. TECHNIQUE: Imaging Protocol: Axial CT angiography was performed with multi-slice acquisition and m ulti-planar and/or 3D reconstructions. CONTRAST MATERIAL: Intravenous: Omnipaque 350 Contrast volume:100 ml Oral: / no COMPARISON: CT ABD PELVIS WITH CONTRAST from 08/06/[address] thoracic lumbar spine wo from 05/20/[address] thoracic lumbar spine wo from 05/20/2018 FINDINGS: Heart: Normal size. Coronary artery calcifications. Aorta: No dissection. Visualized portion of ascending aorta 4.9 x 4.6 cm. Lower abdominal aorta M easuring 5.5 cm, increasing when compared with the previous exam where it measured 5.1 cm. Abdominal branch vessels patent. Pelvis: Iliac Arteries: Stable common iliac artery dilatation.. Common Femoral Arteries: No evidence of stenosis. Lung bases:Normal. Liver: Normal density. No measurable mass. Gallbladder and biliary tract: No radiodense calculus or dilation. Pancreas: Normal density, no abnormal calcifications or inflammatory process. Spleen: Normal. Kidneys: Normal size, contour and axis. No radiodense stones or obstructive uropathy. No masses seen. Right renal cysts. Adrenal glands: No masses seen. Bladder: Symmetric distention, no gross wall thickening. Bowel: Hiatal hernia, unchanged.No obstruction or bowel wall thickening. Peritoneal cavity: No ascites, collection or mesenteric inflammatory response. Enlarged prostate. Bones: No acute findings.. Lymph nodes: Within normal limits. IMPRESSION: Mild interval increase in size of distal abdominal aortic aneurysm, now measuring 5.5 cm.. RADIATION DOSE DELIVERED: 1,016.03mGy.cm Total DLP DATA REPOSITORY: All CT scans at this facility are submitted to the National Radiology Data Registry (NRDR) Dose Index Registry (DIR) with the [employer] (ACR). RADIATION OPTIMIZATION: All CT scans at this facility use at least one of these dose optimization te chniques: automated exposure control; mA and/or kV adjustment per patient size (includes targeted exa ms where dose is matched to clinical indication); or iterative reconstruction.
== END 2020-12-24 02:36 ==
PROVIDERS: PCP Nurse Practitioner Family; Visit Provider Registered Nurse
DX: I71.4 Abdominal aortic aneurysm, without rupture (principal); Z01.812 Encounter for preprocedural laboratory examination
CPT/HCPCS: 74174; 82565; J3490

== ENCOUNTER 2021-03-30 00:19 | Outpatient (CLI) | payer OTHER, SELFPAY ==
--- NOTE | 2021-03-30 07:30 | DI.US_ITS ---
APPROVED REPORT EXAM: Comprehensive 2D, Doppler, and color-flow Echocardiogram Patient Location: Out-Patient Hand Rug Cleaner: Nikole Dior RDCS (AE) Indications: Abdominal Aortic Aneurysm w/o rupture, Pre operative exam Other Information Study Quality: Adequate Conclusion Normal left ventricular wall thickness and chamber size. Estimated ejection fraction is approximatel y 60%. Wall motion is normal Normal right ventricular size and systolic function Both atria are normal in size Aortic valve is sclerotic and trileaflet with mild regurgitation. There is no aortic stenosis Mild mitral annular calcification. There is trace to mild regurgitation Normal tricuspid valve with mild regurgitation Early dilated ascending aorta measuring 3.8 cm Wall motion Left Ventricle The left ventricle is normal size. The left ventricular systolic function is normal. The left ventric ular ejection fraction is within the normal range. There is normal left ventricular wall thickness. T here is normal LV segmental wall motion. There is no ventricular septal defect visualized. LVEF is 56 %. Right Ventricle The right ventricle is normal size. The right ventricular systolic function is normal. The RVSP is 27 .8mmHg. Atria The left atrium size is normal. The right atrium size is normal. The interatrial septum is intact wit h no evidence for an atrial septal defect. Aortic Valve Aortic valve is calcified. Aortic valve is trileaflet. No hemodynamically significant valvular aortic stenosis. Mild aortic regurgitation. Mitral Valve Mild mitral annular calcification. No evidence of mitral valve stenosis. Trace to mild mitral regurgi tation. Tricuspid Valve The tricuspid valve is normal in structure. There is no tricuspid valve stenosis. Mild tricuspid regu rgitation. Pulmonic Valve Pulmonic valve is not well visualized. There is no pulmonic valvular stenosis. There is no pulmonic v alvular regurgitation. Great Vessels Aortic root is mildly dilated. The ascending aorta is mildly dilated. Aortic arch is not well visuali zed. IVC is normal in size and collapses >50% with inspiration. Pericardium There is no pericardial effusion. 2D Dimensions IVSD d PLAX 1.03 cm M: 0.6-1.2 LV Vol A2C d MOD 144.7 mL LVPW d PLAX 1.02 cm M: 0.6 - 1.2 LV Vol A4C d MOD 135.6 mL LVID d PLAX 5.50 cm M: 4.2 - 5.8 LA vol/ BSA A2C s A-L 20.7 mL/m2 LVDs 3.75 cm M: 2.5 - 4.0 LA vol/ BSA A4C s A-L 18.8 mL/m2 Ao Root d 4.06 cm M: 3.1 - 3.7 LA Vol/ BSA Biplane s A-L 19.9 mL/m2 RA Area A4C 19.90 cm2 LA Area A4C s MOD 17.02 cm2 RA Vol/ BSA A4C s A-L 24.7 mL/m2 LA Area A2C s MOD 18.07 cm2 Ao Asc Diam d 3.81 cm M: 2.6 - 3.4 LV EF A4C MOD 57.6 % LV EF Teichholz 59.2 % LV EF A2C MOD 55.1 % LVEF (Rajput's) 53.65 % M: 52 - 72 LV EF Biplane MOD 53.6 % LV Volume 100.48 mL M: 62 - 150 SV 75.78 mL LV Volume Index 42.57 mL/m2 M: 34 - 74 SV Index 32.03 mL/m2 LV Vol Biplane MOD 141.3 mL FS 31.75 % M-Mode TAPSE 2.04 cm (M/F) >1.7 LV Diastology MV E' medial 0.044 (>0.07 m/s) E/A Ratio 0.8 LV E/e MED 17.20 (<14) MV E Vmax 0.76 (0.4-1.3 m/s) MV E' lateral 0.056 (>0.1 m/s) MV A Vmax 0.90 (0.4-1.3 m/s) LV E/e LAT 13.45 (<14) MV E/A Ratio 0.82 MV E/E' medial 17.22 MV E/E' lateral 13.48 Aortic Valve LVOT Area 3.23 cm2 AoV Area Vmax 2.06 cm2 LVOT Vmax 1.24 m/s AoV Area/ BSA (Vmax) 0.87 cm2/m2 LVOT Mean Edison. 0.78 m/s RAFITA Mean Edison. 1.93 cm2 LVOT Peak Grad 6.1 mmHg RAFITA Mean Edison. Index 0.82 cm2/m2 LVOT Mean Grad 2.9 mmHg AR DT 2391 msec LVOT VTI 0.269 m AR PHT 693 msec LVOT Diam s 2.00 cm AoV Vmax 1.94 m/s Velocity Ratio 0.63 AoV Mean Edison. 1.31 m/s AoV Peak Grad 15.1 mmHg LVOT SV 86.94 mL AoV Mean Grad 7.9 mmHg AoV VTI 0.360 m AoV Area VTI 2.41 cm2 AoV Area/ BSA (VTI) 1.02 cm/m2 Mitral Valve MV DT 362 (160-240 msec) MV PHT 105 msec MV Area PHT 2.10 cm2 MV VTI 0.444 m MV VTI Annulus 0.458 m MV Area VTI 2.03 (4.0-6.0 cm2) Pulmonary Valve PV Vmax 1.04 (0.5-1.5 m/s) RVOT Peak Gr. 0.51 mmHg PV Peak Grad 4.3 mmHg RVOT Mean Gr. 0.25 mmHg PV Mean Grad 2.7 mmHg RVOT VTI 0.077 m PV VTI 0.213 m RVOT Vmax 0.36 m/s Tricuspid Valve TR Peak Grad 19.7 mmHg TR Vmax 2.22 m/s RA Pressure 8.00 mmHg RVSP (TR) 27.8 mmHg
== END 2021-03-30 00:39 ==
PROVIDERS: PCP Nurse Practitioner Family; Visit Provider Physician Assistant
DX: Z86.79 Personal history of other diseases of the circulatory system (principal); Z01.818 Encounter for other preprocedural examination
CPT/HCPCS: 93306

== ENCOUNTER 2021-04-12 03:16 | Outpatient (CLI) | payer OTHER, SELFPAY ==
[2021-04-12 14:49] LABS: Source Nasal/Nares
[2021-04-12 17:12] LABS: COVID-19 PCR Negative (Negative)
== END 2021-04-12 03:17 | disposition home or self-care (01) ==
LOC: LBO 03:16
PROVIDERS: PCP Nurse Practitioner Family; Visit Provider Surgery
DX: Z20.822 Contact with and (suspected) exposure to COVID-19 (principal); Z01.818 Encounter for other preprocedural examination
CPT/HCPCS: 87635

== ENCOUNTER 2021-04-22 01:49 | Outpatient (CLI) | payer OTHER, SELFPAY ==
[2021-04-22 12:13] LABS: Source Nasal/Nares
[2021-04-22 14:55] LABS: COVID-19 PCR Negative (Negative)
== END 2021-04-22 01:50 | disposition home or self-care (01) ==
LOC: LBO 01:49
PROVIDERS: PCP Nurse Practitioner Family; Visit Provider Surgery
DX: Z20.822 Contact with and (suspected) exposure to COVID-19 (principal)
CPT/HCPCS: 87635

== ENCOUNTER 2021-07-27 11:01 | Day surgery (SDC) | payer OTHER, SELFPAY ==
--- NOTE | 2021-07-27 09:17 | W.PM.DSUDISC ---
Discharge Plan Disposition Patient Disposition: HOME Condition: Good Discharge Details Reason For Visit: TRIGGER FINGER Attending Provider: Theron Skinner Primary Care Provider: Maria Esther Haynes Home Meds and New Rx's Prescriptions: Continued lolhnaba-xwq-nqhsw-[id number]-cjyc [Alpkxx-Yhmvi-QVT (with antiox)] 500-500-66.7 mg tablet PO BID PreserVision AREDS 14,320-226-200 cmyp-wg-zval capsule 1 cap PO BID (DME) lancets [FreeStyle Lancets] 28 gauge misc 1 ea Miscellaneous DAILY Qty: 100 1RF Rx Instructions: E11.9 to maintain A1C less than 7 (DME) FreeStyle Lite Strips Strip 1 ea Miscellaneous DAILY Qty: 100 3RF Rx Instructions: E11.9 to maintain A1C less than 7 ropinirole 2 mg tablet 2 mg PO QHS omeprazole 40 mg capsule,delayed release(DR/EC) 40 mg PO DAILY Qty: 90 2RF acetylcysteine [NAC] 600 mg capsule 1,200 mg PO BID metoprolol tartrate 50 mg tablet 50 mg PO DAILY memantine 5 mg tablet See Rx Instructions PO BID Qty: 60 1RF Rx Instructions: 5 mg pm x 1 week, 5 mg am and pm x 1 week, 5 mg am and 10 mg pm x 1 week, then 10 mg twice a day thereafter aspirin [Aspir-81] 81 MG tablet,delayed release (DR/EC) 1 tab PO DAILY Hold Instructions: Changed by Provider metformin 750 mg tablet extended release 24 hr 750 mg PO HS Qty: 90 3RF celecoxib 200 mg capsule 200 mg PO DAILY Qty: 90 3RF Hold Instructions: Changed by Provider albuterol sulfate [ProAir HFA] 90 mcg/actuation HFA aerosol inhaler 2 puff Inhalation Q6H PRN Qty: 3 1RF lorazepam [Ativan] 1 mg tablet 1 mg PO QHS PRN pseudoephedrine HCl [Sudafed] 30 mg tablet 60 mg PO ONCE atorvastatin 80 mg tablet 80 mg PO QHS Qty: 90 3RF amlodipine 10 mg tablet 10 mg PO DAILY fluoxetine 20 mg capsule 20 mg PO DAILY bupropion HCl 100 mg tablet 200 mg PO BID PreserVision AREDS-2 250-90-40-1 mg capsule 2 tab PO DAILY acetaminophen [Acetaminophen Extra Strength] 500 mg tablet 1,000 mg PO TID diphenhydramine HCl 25 mg capsule 25 mg PO HS irbesartan [Avapro] 300 mg tablet 300 mg PO DAILY Discharge Instructions Stand Alone Forms: Brody Melgoza Finger Release Referrals: Theron Skinner MD [ [facility] STAFF PHYSICIAN] - Activity:: Activity as Tolerated Remove Dressings/Wound Care:: 72 hours Shower/Bathe:: 72 hours Diet:: As Tolerated Discharge Orders Discharge Orders: Discharge Order (Routine); Ordered 07/27/21 Ordered By: Sadie Tyler DS: Diagnosis Discharge Diagnosis (1) Trigger finger, right index finger: Status: Acute
[2021-07-27 11:56] VITALS: BP 134/90; PULSE 64; RESP 16; TEMP 36.2; O2SAT 95
[2021-07-27] MEDS: Sodium Bicarbonate 50 MEQ/50 ML VIAL (13:00)
[2021-07-27] MEDS: Lidocaine 1% Multi-Dose W/EPI 1/100,000 50 ML VIAL (13:00)
--- NOTE | 2021-07-27 13:14 | ROE_ITS ---
Date of service: 07/27/21 Time of Service: 13:14 Operative Note Operative Note DATE OF PROCEDURE: 07/27/21 PRE-OP DIAGNOSIS: Right Index Finger Trigger Finger POST-OP DIAGNOSIS: same PROCEDURE: Trigger Finger Release - Right Index Finger SURGEON: Theron Skinner ANESTHESIA TYPE: Local By Surgeon Refer to Anesthesia Record ESTIMATED BLOOD LOSS: 0 PATHOLOGY: none sent COMPLICATIONS: None Patient was transported to: same day Patient's condition: stable Indications: I have seen Chon in clinic for symptoms of a trigger finger. The catching, c licking, locking, and pain limited function. The diagnosis of trigger finger was evident. The symptoms had not responded to conservative measures. I discussed trigger finger release with the patient. I reviewed the risks of the procedure to include, but not limited to, bleeding, infection, pain, stiffness, incomplete release, damage to nerves or vessels, continued catching, recurrence. Despite these risks, the patient elected to proceed. Findings: There was a tightened A1 humberto which was released. The flexor tendons were inspected and the patient was able to move the finger without any catching, clicking, or locking. Procedure Description: Chon was greeted in the preoperative holding area where the correct side was identified and marked. The consent was reviewed with the patient and signed. All questions were answered. He was taken back to the operating room. The patient was placed into the supine position on the operating room table with the right arm on an arm board. All bony prominences were well padded. No prophylactic antibiotics were administered since this was a clean, elective hand surgical case. The right arm was then prepped with Chloraprep and draped in a standard fashion with stockinette and extremity drape. A timeout to confirm correct identity, side an d site, procedure, allergies, anesthesia, and medical concerns was performed. The surgical site was marked as a longitudinal incision directly over the A1 humberto of the involved digit. This was confirmed with palpation during finger flexion. This area, overlying the metacarpal head, was then anesthetized with 1% Lidocaine. The patient tolerated this well and once the anesthetic had setup, the procedure began. A longitudinal incision was made through skin only, approximately 1cm. The deep tissues were dissected bluntly. Once the A1 humberto and flexor tendons were identified the soft tissue including neurovascular structures were retracted medially and laterally. There were no crossing structures over the A1 humberto. The proximal edge of the humberto was identified and the humberto was incised with tenotomy scissors. There was a release of the tendons once this was fully released. The tendons were then removed from the wound and inspected. Excess synovium was resected. The tendons were then returned and the patient was asked to move the finger into deep flexion and back to extension. There was no recreation of the pre-operative symptoms. The hand was then once more inspected for any A0 humberto or area of possible constriction. The wound was then irrigated and the skin was closed with a 4-0 Nylon. This was dressed with gauze and a Conform dressing. The patient tolerated the procedure well and was returned to the Same Day Surgery area in a stable condition suffering no known complication.
[2021-07-27 13:15] VITALS: BP 130/94; PULSE 68; RESP 16; TEMP 36.7; O2SAT 96
== END 2021-07-27 13:45 | disposition home or self-care (01) ==
LOC: SUR 11:02
PROVIDERS: PCP Nurse Practitioner Family; Visit Provider Student in an Organized Health Care Education/Training Program
PROC: (CPT 26055; principal; 2021-07-27 13:30)
DX: M65.321 Trigger finger, right index finger (principal)
CPT/HCPCS: 26055

== ENCOUNTER 2021-08-03 12:00 | Day surgery (SDC) | payer OTHER, SELFPAY ==
[2021-08-03 12:09] VITALS: BP 148/93; PULSE 69; RESP 16; TEMP 36.2; O2SAT 96
--- NOTE | 2021-08-03 13:08 | W.PM.DSUDISC ---
Discharge Plan Disposition Patient Disposition: HOME Condition: Stable Discharge Details Reason For Visit: Left Trigger Finger Attending Provider: Theron Skinner Primary Care Provider: Maria Esther Haynes Home Meds and New Rx's Prescriptions: Continued jgeziosr-zyb-kcyqh-bau484-vbqf [Dujwnc-Xvkco-TML (with antiox)] 500-500-66.7 mg tablet 1 tab PO BID (DME) lancets [FreeStyle Lancets] 28 gauge misc 1 ea Miscellaneous DAILY Qty: 100 1RF Rx Instructions: E11.9 to maintain A1C less than 7 (DME) FreeStyle Lite Strips Strip 1 ea Miscellaneous DAILY Qty: 100 3RF Rx Instructions: E11.9 to maintain A1C less than 7 ropinirole 2 mg tablet 2 mg PO QHS acetylcysteine [NAC] 600 mg capsule 1,200 mg PO BID metoprolol tartrate 50 mg tablet 50 mg PO DAILY aspirin [Aspir-81] 81 MG tablet,delayed release (DR/EC) 1 tab PO DAILY Hold Instructions: Changed by Provider metformin 750 mg tablet extended release 24 hr 750 mg PO HS Qty: 90 3RF celecoxib 200 mg capsule 200 mg PO DAILY Qty: 90 3RF Hold Instructions: Changed by Provider albuterol sulfate [ProAir HFA] 90 mcg/actuation HFA aerosol inhaler 2 puff Inhalation Q6H PRN Qty: 3 1RF lorazepam [Ativan] 1 mg tablet 1 mg PO QHS PRN pseudoephedrine HCl [Sudafed] 30 mg tablet 60 mg PO PRN PRN atorvastatin 80 mg tablet 80 mg PO QHS Qty: 90 3RF amlodipine 10 mg tablet 10 mg PO DAILY fluoxetine 20 mg capsule 20 mg PO DAILY bupropion HCl 100 mg tablet 200 mg PO BID PreserVision AREDS-2 250-90-40-1 mg capsule 1 tab PO BID memantine 10 mg tablet 10 mg PO BID Qty: 180 3RF acetaminophen [Acetaminophen Extra Strength] 500 mg tablet 1,000 mg PO TID diphenhydramine HCl 25 mg capsule 25 mg PO HS irbesartan [Avapro] 300 mg tablet 300 mg PO DAILY nystatin [Nystop] 100,000 unit/gram powder 1 pwd TOPICAL DAILY omeprazole 40 mg capsule,delayed release(DR/EC) 40 mg PO HS Discharge Instructions Stand Alone Forms: Brody Melgoza Finger Release Activity:: Activity as Tolerated Remove Dressings/Wound Care:: 72 hours Shower/Bathe:: 72 hours Diet:: As Tolerated Discharge Orders Discharge Orders: Discharge Order (Routine); Ordered 08/03/21 Ordered By: Sadie Tyler DS: Diagnosis Discharge Diagnosis (1) Trigger finger, left index finger: Status: Acute
[2021-08-03] MEDS: Lidocaine 1% Multi-Dose W/EPI 1/100,000 50 ML VIAL (13:13)
[2021-08-03] MEDS: Sodium Bicarbonate 50 MEQ/50 ML VIAL (13:13)
--- NOTE | 2021-08-03 13:25 | W.PM.OP ---
Operative Note Operative Note DATE OF PROCEDURE: 08/03/21 PRE-OP DIAGNOSIS: Left Index Trigger Finger POST-OP DIAGNOSIS: same PROCEDURE: Trigger Finger Release - Left Index Finger SURGEON: Theron Skinner Refer to Anesthesia Record PATHOLOGY: none sent COMPLICATIONS: None Patient was transported to: same day Patient's condition: stable Indications: I have seen Chon in clinic for symptoms of a trigger finger. The catching, clicking, locking, and pain limited function. The diagnosis of trigger finger was evident. The symptoms had not responded to conservative measures. I discussed trigger finger release with the patient. I reviewed the risks of the procedure to include, but not limited to, bleeding, infection, pain, stiffness, incomplete release, damage to nerves or vessels, continued catching, recurrence. Despite these risks, the patient elected to proceed. Findings: There was a tightened A1 humberto which was released. The flexor tendons were inspected and the patient was able to move the finger without any catching, clicking, or locking. Procedure Description: Chon was greeted in the preoperative holding area where the correct side was identified and marked. The consent was reviewed with the patient and signed. All questions were answered. He was taken back to the operating room. The patient was placed into the supine position on the operating room table with the left arm on an arm board. All bony prominences were well padded. No prophylactic antibiotics were administered since this was a clean, elective hand surgical case. The left arm was then prepped with Chloraprep and draped in a standard fashion with stockinette and extremity drape. A timeout to confirm correct identity, side and site, procedure, allergies, anesthesia, and medical concerns was performed. The surgical site was marked as a longitudinal incision directly over the A1 humberto of the involved digit. This was confirmed with palpation during finger flexion. This area, overlying the metacarpal head, was then anesthetized with 1% Lidocaine with Epinephrine and buffered with sodium bicarbonate. The patient tolerated this well and once the anesthetic had setup, the procedure began. A longitudinal incision was made through skin only, approximately 1cm. The deep tissues were dissected bluntly. Once the A1 humberto and flexor tendons were identified the soft tissue including neurovascular structures were retracted medially and laterally. There were no crossing structures over the A1 humberto. The proximal edge of the humberto was identified and the humberto was incised with tenotomy scissors. There was a release of the tendons once this was fully released. The tendons were then removed from the wound and inspected. Excess synovium was resected. The tendons were then returned and the patient was asked to move the finger into deep flexion and back to extension. There was no recreation of the pre-operative symptoms. The hand was then once more inspected for any A0 humberto or area of possible constriction. The wound was then irrigated and the skin was closed with a 4-0 Nylon. This was dressed with gauze and a Conform dressing. The patient tolerated the procedure well and was returned to the Same Day Surgery area in a stable condition suffering no known complication.
[2021-08-03 13:30] VITALS: BP 168/104; PULSE 64; RESP 16; TEMP 36.6; O2SAT 97
== END 2021-08-03 13:30 | disposition home or self-care (01) ==
PROVIDERS: PCP Nurse Practitioner Family; Visit Provider Student in an Organized Health Care Education/Training Program
PROC: (CPT 26055; principal; 2021-08-03 13:30)
DX: M65.322 Trigger finger, left index finger (principal); E11.9 Type 2 diabetes mellitus without complications; I10 Essential (primary) hypertension; E78.5 Hyperlipidemia, unspecified; K21.9 Gastro-esophageal reflux disease without esophagitis
CPT/HCPCS: 26055

== ENCOUNTER 2021-08-11 12:33 | Outpatient (REF) | payer OTHER, SELFPAY ==
[2021-08-11 15:58] LABS: HCT 47.5 % (40.0-50.0); HGB 15.5 g/dL (13.5-17.5); MCH 29.8 pg (27.0-33.0); MCHC 32.6 % (32.0-36.0); MCV 91 fL (80-95); MPV 10.9 fL (8.0-11.0); Platelet Count 204 10^3/uL (130-400); RDW 13.7 % (11.8-14.1); RDW-SD 46.6 fL; WBC 7.91 10^3/uL (4.4-10.8)
[2021-08-11 16:17] LABS: ALT 39 U/L (16-63); AST 33 U/L (15-37); Albumin 3.9 g/dL (3.4-5.0); Alkaline Phosphatase 118 U/L (46-116); Anion Gap 10.2 mmol/L (3-11); BUN 18 mg/dL (7-18); Bilirubin, Total 0.7 mg/dL (0.2-1.0); CO2 24.8 mmol/L (21.0-32.0); Calcium 9.7 mg/dL (8.5-10.1); Calculated LDL 70 mg/dL (<100); Chloride 104 mmol/L (98-107); Cholesterol 135 mg/dL (<200); Glucose 133 mg/dL (74-106); HDL Cholesterol 41 mg/dL (40-60); Potassium 4.1 mmol/L (3.5-5.1); Sodium 139 mmol/L (136-145); Total Protein 8.1 g/dL (6.4-8.2); Triglyceride 121 mg/dL (<150)
== END 2021-08-11 12:34 | disposition home or self-care (01) ==
LOC: NCHCN 12:33
PROVIDERS: PCP Nurse Practitioner Family; Visit Provider Nurse Practitioner Family
DX: E11.9 Type 2 diabetes mellitus without complications (principal); E78.5 Hyperlipidemia, unspecified; I10 Essential (primary) hypertension
CPT/HCPCS: 80053; 80061; 85027

== ENCOUNTER 2022-05-30 00:32 | Outpatient (CLI) | payer OTHER, SELFPAY ==
--- NOTE | 2022-05-30 09:15 | DI.RAD_ITS ---
Exam(s) XR HIP RT COMPLETE AP PELVIS EXAM: XR HIP RT COMPLETE AP PELVIS CLINICAL HISTORY: RT HIP PAIN, M25.551. TECHNIQUE: 2D digital imaging was performed. COMPARISON: CT CT ABDOMEN PELVIS CTA from 12/24/2020 FINDINGS: 3 views No evidence pelvic nor hip fracture. Advanced osteoarthritic degenerative changes in the right hip n oted including jpuf-tf-hopj narrowing of the hip joint space and marginal osteophytes in the right fe moral head. Also significant degenerative changes in the opposite-left hip, albeit somewhat less samuel n the right side. Lower limbs of what is probably an aortic EVAR are noted on the uppermost field of view here. IMPRESSION: Main finding here is severe advanced osteoarthritic degenerative change right hip. Moderate-severe degenerative changes in the opposite-left hip. No fractures. DATA REPOSITORY: RADIATION DOSE DELIVERED:
--- NOTE | 2022-05-30 09:18 | DI.RAD_ITS ---
Exam(s) XR KNEE RT 3V AP,LAT,TAMELA EXAM: XR KNEE RT 3V AP,LAT,TAMELA CLINICAL HISTORY: OSTEOARTHRITIS OF RT KNEE, M17.11. TECHNIQUE: 2D digital imaging was performed. COMPARISON: CR RIGHT KNEE 3 VIEWS from 11/10/2014 FINDINGS: 3 views No evidence of acute fracture prominent joint effusion. Mild degenerative changes noted. Corticated calcifications noted off the medial aspect of the tibial plateau. This is not a Segond fragment (wh ich is typically off of the lateral aspect the tibial plateau). This corticated nonacute appearing density is possibly related to prior MCL injury. Vascular calcification in the popliteal artery noted. IMPRESSION: Mild degenerative changes. Other findings as above. DATA REPOSITORY: RADIATION DOSE DELIVERED:
== END 2022-05-30 00:52 ==
LOC: DI 00:32
PROVIDERS: PCP Nurse Practitioner Family; Visit Provider Family Medicine
DX: M17.11 Unilateral primary osteoarthritis, right knee; I25.84 Coronary atherosclerosis due to calcified coronary lesion; M16.0 Bilateral primary osteoarthritis of hip
CPT/HCPCS: 73562; 73502

== ENCOUNTER 2022-08-14 09:42 | Outpatient (CLI) | payer OTHER, SELFPAY ==
--- NOTE | 2022-08-14 09:30 | DI.RAD_ITS ---
Exam(s) XR PELVIS AP EXAM: XR PELVIS AP CLINICAL HISTORY: MARIZOL planning. TECHNIQUE: 2D digital imaging was performed.Three images were obtained. COMPARISON: No exams were available for comparison FINDINGS: BONES: No acute fracture is present. No bony destructive lesion is seen. JOINTS: No dislocation present. There are marked degenerative changes seen of the right hip with loss of the joint space and osteophytes. Subchondral cysts and subchondral sclerosis is present. There is also moderately severe degenerative change seen in the left hip with marked joint space narrowing and acetabular spurring. SOFT TISSUE: Normal. IMPRESSION: Marked osteoarthritis of the hips, right greater than left. DATA REPOSITORY: RADIATION DOSE DELIVERED:
== END 2022-08-14 09:43 | disposition home or self-care (01) ==
LOC: DIORS 09:42
PROVIDERS: PCP Nurse Practitioner Family; Referring Provider Nurse Practitioner Family; Visit Provider Physician Assistant
DX: M16.11 Unilateral primary osteoarthritis, right hip (principal)
CPT/HCPCS: 72170

== ENCOUNTER 2022-08-14 16:37 | Outpatient (CLI) | payer OTHER, SELFPAY ==
[2022-08-14 11:01] LABS: HCT 44.3 % (40.0-50.0); MCH 31.1 pg (27.0-33.0); MCHC 33.9 % (32.0-36.0); MCV 92 fL (80-95); Platelet Count 186 10^3/uL (130-400); RBC 4.82 10^6/uL (4.36-5.78); RDW 13.8 % (11.8-14.1); RDW-SD 47.1 fL; WBC 7.88 10^3/uL (4.4-10.8)
[2022-08-14 11:20] LABS: Anion Gap 10.5 mmol/L (3-11); BUN 12 mg/dL (7-18); CO2 26.5 mmol/L (21.0-32.0); CREATININE 0.8 mg/dL (0.70-1.30); Calcium 9.8 mg/dL (8.5-10.1); Chloride 104 mmol/L (98-107); Estimated GFR 91.72 (mL/min/1.73m2); Glucose 153 mg/dL (74-106); Potassium 3.5 mmol/L (3.5-5.1); Sodium 141 mmol/L (136-145)
== END 2022-08-14 16:38 | disposition home or self-care (01) ==
LOC: LBO 16:38
PROVIDERS: PCP Nurse Practitioner Family; Visit Provider Student in an Organized Health Care Education/Training Program
DX: Z01.818 Encounter for other preprocedural examination; M16.11 Unilateral primary osteoarthritis, right hip
CPT/HCPCS: 36415; 80048; 85027

== ENCOUNTER 2022-08-15 07:32 | Day surgery (SDC) | payer OTHER, SELFPAY ==
[2022-08-15] VITALS (10 sets, daily range): BP systolic 93–165; BP diastolic 63–103; PULSE 49–71; RESP 14–24; TEMP 36.3–36.7; O2SAT 92–95; BMI 31.8
--- NOTE | 2022-08-15 08:01 | ANES.PREOP_ITS ---
General Info Date of Service Date Performed: 08/15/22 Height: 6 ft 2 in Weight: 112.4 kg Body Mass Index (BMI): 31.8 Surgical Procedure: Operation Date: 08/15/22 10:50 Proposed Procedure Side Surgeon p Hip Total Hip Anterior Right Theron Skinner MD Meds Allergies and Home Medications Allergies Allergy/AdvReac Type Severity Reaction Status Date / Time codeine AdvReac Intermediate N/V Verified 08/15/22 08:06 lisinopril AdvReac cough Verified 08/15/22 08:06 Home Medication Medication Instructions Recorded aspirin 81 mg tablet,delayed 1 tab PO DAILY 05/24/12 release (Aspir-) ybwsskvfrmm-mtg-bdgrfncof-hrb 1 tab PO BID 07/02/18 149-hyalur 500 mg-500 mg-66.7 mg tablet (Xkrealxfhbv-Ehxvwbkhlje-SWH (with antiox)) diphenhydramine HCl 25 mg capsule 25 mg PO HS 12/26/18 ropinirole 2 mg tablet 2 mg PO QHS 12/26/18 blood sugar diagnostic (FreeStyle #100 strips 04/30/19 Lite Strips) lancets 28 gauge (FreeStyle #100 ea 04/30/19 Lancets) irbesartan 300 mg tablet (Avapro) 300 mg PO DAILY 09/19/19 metformin 750 mg tablet,extended 750 mg PO HS diabetes #90 tabs 11/25/19 release 24 hr albuterol sulfate 90 mcg/actuation 2 puff inhalation Q6H PRN ##3 12/23/19 aerosol inhaler (ProAir HFA) pseudoephedrine HCl 30 mg tablet 60 mg PO PRN PRN 07/22/20 (Sudafed) acetylcysteine 600 mg capsule (NAC) 1,200 mg PO BID 04/20/21 amlodipine 10 mg tablet 10 mg PO DAILY 05/24/21 bupropion HCl 100 mg tablet 200 mg PO BID 05/24/21 metoprolol tartrate 50 mg tablet 50 mg PO DAILY 06/20/21 nystatin 100,000 unit/gram topical 1 pwd topical DAILY 07/27/21 powder (Nystop) omeprazole 40 mg capsule,delayed 40 mg PO HS 07/27/21 release multivitamin 1 tab PO DAILY 08/23/21 atorvastatin 80 mg tablet 80 mg PO QHS #90 tabs 02/02/22 acetaminophen 500 mg tablet 1,000 mg PO TID 02/21/22 (Acetaminophen Extra Strength) donepezil 10 mg tablet 10 mg PO QHS #90 tabs 02/21/22 fluoxetine 20 mg capsule 40 mg PO DAILY 02/21/22 sildenafil 50 mg tablet 50 mg PO DAILY PRN 05/30/22 vit C 250 mg-vit E 90 mg-zinc 40 2 tab PO DAILY 05/30/22 mg-copper 1 dc-zleqaw-dghafd capsule (PreserVision AREDS-2) memantine 10 mg tablet 10 mg PO BID #180 tabs 06/14/22 Safron Lift PO DAILY 08/14/22 ketorolac 10 mg tablet 10 mg PO BID 08/14/22 Current Visit Medications: Current Medications Generic Name Dose Route Start Last Admin Trade Name Freq PRN Reason Stop Dose Admin Acetaminophen 1,000 mg 08/15/22 06:00 Acetaminophen 500 Mg Tab PO 08/15/22 18:00 PREOP ESTELLE Celecoxib 400 mg 08/15/22 06:00 Celecoxib 200 Mg Cap PO 08/15/22 18:00 PREOP ESTELLE Tranexamic Acid 1,000 mg/ 60 mls @ 360 mls/hr 08/15/22 06:00 Sodium Chloride IV 08/15/22 18:00 PREOP ESTELLE Ringer's Solution 1,000 mls @ 80 mls/hr 08/15/22 06:00 IV 09/13/22 23:59 INFUSION ESTELLE Cefazolin Sodium 3,000 mg/ 100 mls @ 200 mls/hr 08/15/22 06:00 Sodium Chloride IVPB 08/15/22 16:00 PREOP [facility] IV Miscellaneous Supplies 1 each 08/15/22 06:00 Iv Access IV 09/13/22 23:59 DIRECTED ESTELLE Sodium Chloride 0 ml 08/15/22 06:00 Normal Saline Flush 10 Ml Syr IV 09/13/22 23:59 PRN PRN Sodium Chloride 0 ml 08/15/22 06:00 Normal Saline 10 Ml Vial IJ 09/13/22 23:59 DIRECTED PRN Sterile Water 0 ml 08/15/22 06:00 Water,Injection,Sterile 10 Ml Vial IJ 09/13/22 23:59 DIRECTED PRN PFSH Active Problems Active Problems: Problem Status Onset Code Primary osteoarthritis of right hip M16.11 Abdominal aortic aneurysm (AAA) >39 mm diameter 01/05/17 I71.4 Depressive disorder, not elsewhere classified 05/21/12 F32.9 Diaphragmatic hernia 05/21/12 K44.9 Diverticulosis of colon (without mention of hemorrhage) 05/21/12 K57.30 Decreased cardiac ejection fraction 02/07/17 R93.1 Diabetes mellitus 05/31/16 E11.9 Gastroesophageal reflux disease without esophagitis 05/21/12 K21.9 Obesity, unspecified 08/03/11 E66.9 Osteoarthritis of first metatarsophalangeal joint 11/04/14 M19.079 Osteoarthritis of right knee 12/24/14 M17.11 Physical deconditioning 07/17/17 R53.81 Pure hypercholesterolemia 08/03/11 E78.00 Restless legs syndrome 08/20/17 G25.81 Cognitive complaints R41.9 Anxiety F41.9 Osteoarthritis of metacarpophalangeal (MCP) joint of right thumb M19.041 Memory deficit R41.3 Vertebral artery occlusion I65.09 Mild cognitive impairment G31.84 Gait disorder R26.9 Alzheimer's dementia G30.9, F02.80 Trigger finger, right index finger M65.321 Trigger finger, left index finger M65.322 Medical History Medical History AAA (abdominal aortic aneurysm) 4.6cm in 2019, follow up in 1 year Aneurysm Ascending aortic aneurysm Colon cancer screening Compression fracture C7 lamina fx, T1 anterosuperior corner fx, and T4 compression fx. Suspicion of three column injury. [facility] [place] D/C summary (05/20/18-05/27/18). Depressive disorder Detached retina Essential hypertension (11/22/12) GERD (gastroesophageal reflux disease) Hiatal hernia Hx of fall April 2018, fall off ladder, fractures cervical and T5; no surgery, brace worn Hyperlipidemia Hypertension Intermittent asthma Laceration of left thumb (11/16/18) Low left ventricular ejection fraction Macular degeneration Macular degeneration of left eye Obstructive sleep apnea (adult) (pediatric) (05/21/12) SYBIL Maldonado Pre-op evaluation Sleep apnea Type 2 diabetes mellitus Surgical History Surgical History Great toe implant (12/01/14) Jason Aviles Hx of vuccy-qcdot-akkljox bypass stent 06/06/21 Hx of aortic aneurysm repair stents, 04/25/21 S/P cataract surgery bilateral S/P left inguinal hernia repair (~2019) x2 S/P right knee arthroscopy 1969's S/P trigger finger release early at [facility] [place] S/P vasectomy Tonsillectomy and adenoidectomy Tobacco Smoking/Tobacco Use Status: Former Tobacco Use Alcohol Alcohol Intake: current Alcohol intake frequency: a few times a month Alcohol type: beer and hard liquor Substance Use Substance use: Never Substance use type: does not use Vital Signs and Lab Results Vital Signs Most Recent Vital Signs in EMR: Temp Pulse Resp BP Pulse Ox 36.6 C 60 16 165/103 H 95 08/15/22 07:40 08/15/22 07:40 08/15/22 07:40 08/15/22 07:40 08/15/22 07:40 Point of Care Results Point of Care Results: Finger Stick Blood Glucose 140 08/15/22 07:49 Lab Results Blood Type / Crossmatch: No Data to Display Complete Blood Count: White Blood Count 7.88 10^3/uL (4.4-10.8) 08/14/22 10:50 Red Blood Count 4.82 10^6/uL (4.36-5.78) 08/14/22 10:50 Hemoglobin 15.0 g/dL (13.5-17.5) 08/14/22 10:50 Hematocrit 44.3 % (40.0-50.0) 08/14/22 10:50 Platelet Count 186 10^3/uL (130-400) 08/14/22 10:50 Complete Metabolic Panel: Sodium 141 mmol/L (136-145) 08/14/22 10:50 Potassium 3.5 mmol/L (3.5-5.1) 08/14/22 10:50 Chloride 104 mmol/L (98-107) 08/14/22 10:50 Carbon Dioxide 26.5 mmol/L (21.0-32.0) 08/14/22 10:50 BUN 12 mg/dL (7-18) 08/14/22 10:50 Creatinine 0.8 mg/dL (0.70-1.30) 08/14/22 10:50 Est GFR (CKD-EPI 2020) 91.72 (mL/min/1.73m2) 08/14/22 10:50 Calcium 9.8 mg/dL (8.5-10.1) 08/14/22 10:50 Glucose 153 mg/dL (74-106) H 08/14/22 10:50 Liver Function Panel: No Data to Display Coagulation Panel: No Data to Display Cardiac Panel: No Data to Display Arterial Blood Gas: No Data to Display Venous Blood Gas: No Data to Display Pancreas Panel: No Data to Display Thyroid Panel: No Data to Display Infectious Disease: No Data to Display Blood Cultures: No Data to Display Toxicology Panel: No Data to Display Imaging and Studies Imaging and Studies Study information below may be from another EMR and interpreted by another provider. Please see original notes in EMR for more complete details. Stress Test Summary: 2017: normal perfusion imaging, abnormal contraction consistent with cardiomyopathy. EF 47%. Echocardiogram Summary: 04/12: LVEF 60%, AoV sclerotic with mild AR, mild MR, mild TR. ascending Ao 3.8 cm. Anesthesia Assessment and Plan Anesthesia History Personal History: No History of Anesthesia Complications Family History: No Family History of Anesthesia Complications Exercise Tolerance Exercise Tolerance: Metabolic Equivalents>4 Pertinent Negatives Pertinent Negatives: No Symptoms of GERD Cardiac & Pulmonary Exam Cardiac Exam: Heart Murmur Present (delacruz systolic murmur) Pulmonary Exam: Clear Bilateral Breath Sounds Implantable Cardiac Device Does patient have a Pacemaker or an ICD?: No Airway Exam Known Difficult Airway: No Mallampati Class: 2 Mouth Opening: Normal (> 3cm) Thyromental Distance: Greater than 3 cm Neck Range of Motion: Full ROM Neck Circumference: Normal Teeth Condition: Normal Dentition ASA Classification ASA Score: ASA 3 Emergency Case?: No NPO Status NPO Status: NPO Clears >2 hours, Solids >8 hours Anesthesia Plan Resuscitation Status: Full Code Anesthesia Technique: Spinal Anesthesia Airway Planned: Natural Airway Pain Management: Intrathecal Analgesia Monitors Used: Standard Monitors Preoperative Comments:: 77 yo male for MARIZOL. Sig PMHx: s/p AAA repair (EVAR at [facility] [place], last imaging good with small type II endoleak), HTN, asthma, DM, GERD (omeprazole), RLS, anxiety, Alzheimer's/mild cognitive decline (donepezil), former smoker. Previous Anes: - EVG, AAA, masked with OPA, mac 4/de la torre 2 grade 3, cmac d blade grade 1. - hernia, LMA 5, no issues.
[2022-08-15] MEDS: Acetaminophen 500 MG TAB 1000 MG PO (08:25)
[2022-08-15] MEDS: Celecoxib 200 MG CAP 400 MG PO (08:25)
[2022-08-15] MEDS: Lactated Ringers 1,000 ML 80 ML IV (08:45)
[2022-08-15] MEDS: ceFAZolin 3,000 MG in Normal Saline 100 ML 200 MG IVPB (10:33)
--- NOTE | 2022-08-15 12:30 | DI.RAD_ITS ---
Exam(s) XR HIP RT IN OR EXAM: XR HIP RT IN OR CLINICAL HISTORY: right total hip. TECHNIQUE: 2D and realtime digital imaging was performed. COMPARISON: CR XR PELVIS AP from 08/14/2022 FINDINGS: The intraoperative image shows placement of a right hip prosthesis. The alignment appears satisfacto ry. Please see procedure note for details. Fluoro time: 35.8seconds RADIATION DOSE DELIVERED: Ka,r=6.42 mGy
--- NOTE | 2022-08-15 14:28 | PDOC.DSDIS_ITS ---
Date of service: 08/15/22 Time of Service: 14:28 Discharge Plan Disposition Patient Disposition: Home Condition: Good Discharge Details Reason For Visit: Right Hip Arthritis Attending Provider: Theron Skinner Primary Care Provider: Maria Esther Haynes Home Meds and New Rx's Prescriptions: New celecoxib 200 mg capsule 200 mg PO BID PRN (Reason: pain) Qty: 60 1RF aspirin 81 mg tablet,delayed release (DR/EC) 81 mg PO BID Qty: 60 0RF oxycodone 5 mg tablet 5 mg PO Q4H PRNQty: 15 0RF Continued sttyoopm-cap-[id number] [Zgbcqn-Fswyq-ZWQ (with antiox)] 500-500-66.7 mg tablet 1 tab PO BID (DME) lancets [FreeStyle Lancets] 28 gauge misc 1 ea Miscellaneous DAILY Qty: 100 1RF Rx Instructions: E11.9 to maintain A1C less than 7 (DME) FreeStyle Lite Strips Strip 1 ea Miscellaneous DAILY Qty: 100 3RF Rx Instructions: E11.9 to maintain A1C less than 7 donepezil 10 mg tablet 10 mg PO QHS Qty: 90 3RF ropinirole 2 mg tablet 2 mg PO QHS acetylcysteine [NAC] 600 mg capsule 1,200 mg PO BID metoprolol tartrate 50 mg tablet 50 mg PO DAILY multivitamin Tablet 1 tab PO DAILY metformin 750 mg tablet extended release 24 hr 750 mg PO HS Qty: 90 3RF albuterol sulfate [ProAir HFA] 90 mcg/actuation HFA aerosol inhaler 2 puff Inhalation Q6H PRN Qty: 3 1RF pseudoephedrine HCl [Sudafed] 30 mg tablet 60 mg PO PRN PRN amlodipine 10 mg tablet 10 mg PO DAILY bupropion HCl 100 mg tablet 200 mg PO BID atorvastatin 80 mg tablet 80 mg PO QHS Qty: 90 3RF fluoxetine 20 mg capsule 40 mg PO DAILY PreserVision AREDS-2 250-90-40-1 mg capsule 2 tab PO DAILY sildenafil 50 mg tablet 50 mg PO DAILY PRN Rx Instructions: administer 30 minutes to 4 hours before activity memantine 10 mg tablet 10 mg PO BID Qty: 180 3RF diphenhydramine HCl 25 mg capsule 25 mg PO HS irbesartan [Avapro] 300 mg tablet 300 mg PO DAILY nystatin [Nystop] 100,000 unit/gram powder 1 pwd TOPICAL DAILY omeprazole 40 mg capsule,delayed release(DR/EC) 40 mg PO HS Safron Lift PO DAILY acetaminophen [Acetaminophen Extra Strength] 500 mg tablet 1,000 mg PO TID Qty: 90 0RF Discontinued ketorolac 10 mg tablet 10 mg PO BID aspirin [Aspir-81] 81 MG tablet,delayed release (DR/EC) 1 tab PO DAILY Hold Instructions: Changed by Provider Discharge Instructions Additional Instructions: Total Hip Discharge Instructions Activity: The most important activity is to walk. You should try to take short walks a few times a day. You have no restrictions on movement or positioning, but do not try to force what you do. You will find some stiffness and weakness with hip flexion (lifting your knee). Do not try to strengthen this too early, continue to practice walking and stairs and this will come. - Outpatient physical therapy can be helpful to help return you to a normal gait and improve your flexibility and strength. This can start around 2 weeks. For some patients, it?s not necessary. Usually this is determined at the time of discharge or at the first post-operative visit. - You should wear the ANA hose on both legs for 2 weeks. Dressing: Keep the surgical dressing in place for at least one week. After the first week it may be removed and replace with light gauze and tape or nothing. It may get wet after 3 days but avoid soaking the dressing. If it gets wet, just lightly pat dry. It is important to always keep some gauze between skin folds, especially when you are sitting. Spend some time with the wound exposed when you are lying flat as the incision does wrinkle onto itself. Medications: - You should take Tylenol and an anti-inflammatory Celebrex as your primary pain control medications. If the Celebrex is too expensive or not covered, please call the office for another alternative (Advil/Ibuprofen or Naproxen/Aleve). - You have been prescribed a stronger pain medication Oxycodone for breakthrough pain, take as needed as prescribed. - You should continue your stomach acid reduction agent Omeprazole to help reduce stomach acid and reflux. - You will be taking Aspirin 81mg twice a day for DVT prevention unless instructed otherwise. - If you have constipation you should take Colace or Miralax (both ridd-hqd-sbzhabi). It takes most people 3-4 days to have a bowel movement. Follow-up: 2 weeks If you have any acute concerns or questions, please do not hesitate to contact the office at [phone]. You may contact Dr. Skinner with any questions after hours through the hospital at [phone] or on his cell phone at [phone]. Referrals: Theron Skinner MD [ [facility] ST[facility]FF [facility]YSICIAN] - Equipment/Supplies: Walker Activity:: Activity as Tolerated Remove Dressings/Wound Care:: Do Not Remove Shower/Bathe:: Cover Diet:: As Tolerated Discharge Orders Discharge Orders: Discharge Order (Routine); Ordered 08/15/22 Ordered By: Theron Skinner DS: Diagnosis Discharge Diagnosis (1) Primary osteoarthritis of right hip: Status: Acute
--- NOTE | 2022-08-15 14:44 | W.PM.OP ---
Date of service: 08/15/22 Time of Service: 12:50 Operative Note Operative Note DATE OF PROCEDURE: 08/15/22 PRE-OP DIAGNOSIS: Right Hip Osteoarthritis POST-OP DIAGNOSIS: same PROCEDURE: Right Anterior Total Hip Arthroplasty with Intraoperative Navigation SURGEON: Theron Skinner PLASTIC OUTFITTER: Kaylee De Jesus ANESTHESIA TYPE: General LMA/ETT Refer to Anesthesia Record ESTIMATED BLOOD LOSS: 650 PATHOLOGY: none sent TOURNIQUET TIME: 0 COMPLICATIONS: None Patient was transported to: PACU Patient's condition: stable Implants: 1. Depuy Godfrey Acetabular Component, 56mm 2. Depuy Acetabular Liner, [id number] 3. Depuy Corail Standard Collared Femoral Stem, Size 15 4. Depuy Altrx Ceramic Femoral Head, Size 36+1.5mm Indications: I have seen Ian in clinic for symptoms of acute hip pain from hip arthritis, confirmed with radiographic findings. He has exhausted nonoperative methods and was having significant limitations in daily function and desired better function and less pain. I discussed the technical details of a hip replacement. I explained the risks of the procedure to include, but not limited to, bleeding, infection, pain, stiffness, fracture, damage to nerves and vessels, damage to muscles and tendons, loosening, instability, leg length inequality, need for repeat procedure, blood clot and cardiopulmonary demise. Despite these risks, Ian elected to proceed. Findings: There was significant signs of arthritis throughout the hip. Large osteophytes were present throughout and the bone of the femoral neck and head was notably soft. Procedure Description: Ian was greeted in the preoperative holding area where the correct side was identified and marked. The consent was reviewed with the patient and signed. The history and physical was updated. All questions were answered. He was taken back to the operating room. A spinal anesthestic was then attempted but unsuccessful. Thus, general anesthesia was then administered. The feet were wrapped with cast padding and Coban and then placed into the boot liners and then into the boots. Care was taken to protect the skin and make sure the heels were fully down and the boots were stable. The patient was then positioned onto the HANA table. Both legs were held in a neutral position. SCDs were applied. The patient was then slid down onto a peroneal post. Prophylactic antibiotics in the form of Cefazolin were administered. 1g of Tranxemic Acid was given intravenously within 30 minutes of incision. The right leg was then prepped with Chloraprep and draped in a standard fashion. A second prep with Chloraprep was performed prior to placement of a shower-curtain type drape with Iodine impregnated skin protection. A timeout to confirm correct identity, side and site, procedure, allergies, anesthesia, and medical concerns was performed. An obliquely oriented incision was made starting lateral to the ASIS and running distal over the Tensor Fascia Ann (TFL) muscle belly toward the fibular head, approximately 10cm. The skin and soft tissue was dissected sharply, through Anne?s fascia, and to the fascia of the TFL. With the fascia and superior border of the IT band identified, the fascia was incised with a new knife just above any perforators from the IT band. The TFL muscle belly was bluntly dissected away from the fascia and moved laterally. The fat between TFL and rectus was identified to ensure the dissection was not within the TFL. Blunt dissection created space between abductors and the capsule and retractor was placed over the lateral femoral neck. The fibers of the rectus femoris tendon were identified and these were freed from the anterior capsule. A second cobra retractor was placed around the medial femoral neck. The TFL was further retracted laterally to show the deep fascia. Careful dissection through this layer identified three main crossing vessels of the lateral femoral circumflex. These were cauterized in multiple locations and then cut without any noticeable bleeding. The TFL was further released bluntly from the deep fascia to expose anterior hip capsule and fat The Ricki orthopaedic retractor was then placed beneath the TFL and against sartorius and medial soft tissues to protect and retract the soft tissues. A T-capsulotomy was then performed starting at the superior lateral acetabulum and moving distally to the intertrochanteric ridge. These capsular flaps were tagged with a No. 1 Ethibond and elevated from within. The capsular flaps were released to the shoulder of the lateral neck and to the lesser trochanter to give excellent visualization of the proximal femur. A neck osteotomy was performed using an oscillating saw based on preoperative templates. This cut started in the shoulder and of the lateral neck and exited medially. The saw was at all times directed medially to avoid injury to the greater trochanter. Gross traction was applied to the leg and the osteotomy opened. The femoral head was removed with a corkscrew, making sure to protect the TFL on its exit. Traction was released after head removal. The bone within the neck and within the base of the osteotomy was quite soft and easily compressible. There is notable irregularity of the femoral head. This was measured on the back table to determine the starting reamer size. Portions of the rectus obscuring visualization were minimally elevated off the superior acetabulum. There is significant calcification about the labrum circumferentially with loose osteophytes anterior laterally. An anterior retractor was placed over the anterior wall between capsule and labrum and attached to the Gripper retraction system. The femur was rotated to 90 degrees and medial capsule was fully released until the lesser trochanter was palpable and visible; the femur was returned to 30 degrees. A posterior retractor was placed similarly between capsule and labrum. This provided excellent visualization. There was a notable floor osteophyte. There was significant chondromalacia of the superior acetabulum. Acetabular reaming began with a 51mm reamer. This first reaming was directed anterior to posterior and medial to get down to the true floor. This was inspected and reamed until the true floor was reached. The anterior retractor was then released and entry and exit was provided by traction on the capsular flaps. I then reamed sequentially up to a 56mm reamer where good fit was obtained. The larger reamers were oriented based on anatomical reference of the anterior and lateral friend to ensure proper abduction and anteversion. Positioning and size was confirmed with the fluoroscopy. A 56mm Depuy Godfrey acetabular component was selected. The acetabulum was reamed around the periphery with the selected acetabular size to prevent a rim fit. The deep tissues were irrigated. The acetabular component was then impacted in a position of about 40-45 degrees of abduction and 15-20 degrees of anteversion, using the patient?s anatomy as the ultimate landmark. Fluoroscopy was used to confirm this. There was excellent venetian blind cleaner and repairer of the acetabular component and the inserting handle was removed. The acetabular liner, Depuy 11y75ri polyethylene liner, was inserted and lined up with the tines of the acetabular component. There was no soft tissue interposition. The liner was then impacted into position and confirmed to be well-seated. A portion of the shanon-articular cocktail was then injected around the acetabulum into the capsule and periosteum. This cocktail consisted of 123mg of Ropivacaine, 0.25mg of Epinephrine, 0.04mg of Clonidine, and 15mg of Ketorolac, diluted to 50cc. The leg was rotated to 120 degrees. Any remaining medial capsule was released until the lesser trochanter was easily palpable. A retractor was placed medially. The lateral capsule was further released into the shoulder to allow access to the greater trochanter. A Buitrago retractor was placed over the greater trochanter which allowed the trochanter to flip in front of the capsule for excellent exposure. The leg was brought down into maximal extension and 20 degrees of adduction while ensuring there was no impingement on the acetabulum. Any remnant capsule within the trochanter was released. Piriformis and obturator externis were identified and protected. There was excellent access to the proximal femur. The lateral neck remnant was removed with a rongeur. A blunt canal probe was used to identify the canal and trajectory for later broaching. A box osteotome initiated the broach course. A small curved rasp and a curved curette were used to work laterally. Broaching then began with a size 8 Corail broach. This was inserted manually around the trochanter and into the canal before mallet blows. The broach was seated to a few millimeters below the cut level based on the neck cut and the preoperative template. Sequential broaching was continued with the Medcurrentse pneumatic broaching device until a tight fit was obtained with good rotational control of the femur. A trial standard neck was inserted along with a +1.5 trial head. The leg was brought out of extension and adduction and then reduced with traction and internal rotation. The leg was stable anteriorly in a position of 30 degrees of extension and 90 degrees of external rotation. Fluoroscopy was used to ensure there was no fracture and the stem was seated well. Leg lengths were checked with an AP pelvis and pelvic reference points. [employer] navigation system was used to confirm appropriate positioning and leg length and offset. This accurately reproduced the offset and slightly over corrected the leg length and therefore I advanced the broach an additional 2 to 3 mm. Once content with the desired offset and leg lengths, the leg was brought back into extension, external rotation and adduction. The periosteum and surrounding tissue was injected with remaining portion of the shanon-articular cocktail. The proximal femur was irrigated as well as the deep tissues. The [employer] Tech[employer] Corail standard collared stem, size 15, was then manually inserted into the proximal femur making sure to control rotation. It was then malleted into position with light blows, giving breaks to allow bone expansion and decrease risk of fracture. The selected Depuy Altrx Ceramic Head, size 36+1.5mm, was then placed onto the clean and dry trunnion and secured with impaction onto the tapered fit. The leg was brought back out of extension and adduction and reduced with traction and internal rotation. Stability was confirmed with no shuck at 90 degrees of external rotation and 30 degrees of extension. No impingement through range of motion arc. There was some damage seen to the lateral aspect of the rectus femoris muscle and tendon. The tendon was intact and some muscle fibers and fascia laterally were disrupted. 2-0 Vicryl's were placed into the myofascial covering of the lateral aspect of the rectus reapproximating these torn edges. Then, final x-ray images were obtained with fluoroscopy to confirm adequate positioning and no intraoperative fracture. The deep tissues were thoroughly irrigated with Surgiphor, betadine solution. This was allowed to sit in the wound for 3 minutes before being thoroughly irrigated out with normal saline. The capsule was then reapproximated with the previously placed Ethibond sutures. The TFL fascia was finally closed with a No. 2 Stratafix, barbed suture. Deep tissues were then reapproximated with 0 Vicryl and a running 2-0 Vicryl. The skin was closed with a running 4-0 Monocryl in a subcuticular fashion. This was reinforced with skin glue. A Mepilex silver dressing was applied. At the end of the case, all counts were correct. Ian was transferred to the hospital bed without difficulty and suffering no apparent complication. Ian has a good prognosis. Physical therapy will start today and without restrictions, weight-bearing as tolerated. Aspirin 81mg BID will be used for DVT prophylaxis.
--- NOTE | 2022-08-15 15:00 | PT.INIE ---
Date of service: 08/15/22 Time of Service: 14:18 PT Notes Visit Reasons: Right Hip Arthritis Physical Therapy Day Surgery Initial Evaluation Date: 08/15/2022 Referring Doctor: Theron Skinner MD PT Orders: PT CONSULT: S/P Ortho surgery. S/P right MARIZOL Precautions: WBAT on the right LE with AD. Patient Profile/Admitting Diagnosis: Chon is a 77-year-old male with primary unilateral osteoarthritis of the right hip and status post right anterior total hip arthroplasty on postoperative day 0. PMHX: All Active Problems?(Updated 08/14/22 @ 09:35 by KEERTHI Lord) Primary osteoarthritis of right hip (Acute) Abdominal aortic aneurysm (AAA) >39 mm diameter (Acute 01/05/17) 42cm -201606/25/17 4.4 cm distal abdominal aortic aneurysm 4.20 cm 05/14/18 4.50 cm 12/12/18 4.60x4.50 cm ? 06/12/19? 4.60x4.60 cm repeat 1 yr Depressive disorder, not elsewhere classified (Chronic 05/21/12) Diaphragmatic hernia (Acute 05/21/12) Diverticulosis of colon (without mention of hemorrhage) (Acute 05/21/12) Decreased cardiac ejection fraction (Acute 02/07/17) Diabetes mellitus (Acute 05/31/16) Gastroesophageal reflux disease without esophagitis (Acute 05/21/12) Obesity, unspecified (Acute 08/03/11) Osteoarthritis of first metatarsophalangeal joint (Acute 11/04/14) Osteoarthritis of right knee (Acute 12/24/14) Dr. 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 AAA (abdominal aortic aneurysm) 4.6cm in 2020, follow up in 1 year Aneurysm Ascending aortic aneurysm Colon cancer screening Compression fracture C7 lamina fx, T1 anterosuperior corner fx, and T4 compression fx. Suspicion of three column injury.? [facility] [place]/27/18[place] Depressive disorder Detached retina Essential hypertension (11/22/12) GERD (gastroesophageal reflux disease) Hiatal hernia Hx of fall April 2018, fall off ladder, fractures cervical and T5; no surgery, brace worn Hyperlipidemia Hypertension Intermittent asthma Laceration of left thumb (11/16/18) Low left ventricular ejection fraction Macular degeneration Macular degeneration of left eye Obstructive sleep apnea (adult) (pediatric) (05/21/12) SYBIL -Beverly MaldonadoPre-op evaluation Sleep apnea Type 2 diabetes mellitus Surgical History? Great toe implant (12/01/14) Jason Aviles Hx of [id number] bypass stent 06/06/21 Hx of aortic aneurysm repair stents, 04/25/21 S/P cataract surgery bilateral S/P left inguinal hernia repair (~2018) x2 S/P right knee arthroscopy 1969's S/P trigger [place] [facility] [place] vasectomy Tonsillectomy and adenoidectomy Social History/Home Situation: Lives with in a private home with 2-3 steps to enter with a rail on one side. Modified independent using both front wheeled walker and single-point cane prior to surgery. Equipment Owned/DME: FWW, SPC Subjective: Reports 1?2/10 pain in the right hip at rest and with weight bearing. Denies headache, chest pain, and dizziness throughout session Objective: General Observation: Supine in bed. Jennifer present throughout evaluation. Mental Status: Alert and oriented as to person and place. Able to follow double step commands Pain: 1?2/10 pain in the right hip as above ROM: Right Lower Extremity: Hip flexion WFL. Hip abduction WFL. Knee flexion WFL. Ankle dorsiflexion WFL. Ankle plantarflexion WFL. Left Lower Extremity: Hip flexion WFL. Hip abduction WFL. Knee flexion WFL. Ankle dorsiflexion WFL. Ankle plantarflexion WFL. Strength: Right Lower Extremity: Hip flexors 4/5. Hip abductors 4/5. Knee flexors 5/5. Knee extensors 4/5. Ankle dorsiflexors 5/5. Ankle plantarflexors 5/5. Left Lower Extremity:Hip flexors 5/5. Hip abductors 5/5. Knee flexors 5/5. Knee extensors 5/5. Ankle dorsiflexors 5/5. Ankle plantarflexors 5/5. Sensation: Intact as to pain and light pressure in bilateral lower extremities. Bed Mobility/Transfers: Supine to sit contact-guard assist Sit to stand contact-guard assist with FWW Stand to sit standby assist Bed to chair contact-guard assist with FWW Gait: Tolerated level surface ambulation of 150 feet using front wheeled walker with step to gait pattern requiring standby assist only. No loss of balance. No shortness of breath. Balance: Static Sitting: Normal Dynamic Sitting: Normal Static Standing: Fair Dynamic Standing: Fair Special Tests: Mobility Limitations Standardized Measure [facility] 6 clicks Basic Mobility Inpatient Short Form: Raw Score: 21 CMS Score: 29% deficit Informed Consent/Education: Patient instructed in purpose of PT consult. Packet containing MARIZOL exercise protocol has been given to patient. Education and training on initial set of exercises that can be done at home have been completed with patient and patient's . Access Code: [email or web address] URL: [email or web address] Date: 08/15/2022 Prepared by: Salima Traore Exercises - Supine Gluteal Sets - 1 x daily - 7 x weekly - 1 sets - 10 reps - 5 hold - Supine Quadricep Sets - 1 x daily - 7 x weekly - 1 sets - 10 reps - 5 hold - Supine Heel Slide - 1 x daily - 7 x weekly - 1 sets - 10 reps - 5 hold - Seated Long Arc Quad - 1 x daily - 7 x weekly - 1 sets - 10 reps - 5 hold - Seated March - 1 x daily - 7 x weekly - 1 sets - 10 reps - 5 hold Assessment: Patient requires the use of a front wheeled walker to maximize independence and reduce fall risk. Patient presents with clinical signs and symptoms consistent with current/admitting diagnoses that have resulted to mobility limitations, gait instability, generalized weakness, and impairment of motor control as demonstrated by the following impairment level findings: 1. Decreased strength to right hip major muscle groups 2. Impaired standing balance Impairments are contributing to the following functional limitations: 1. Inability to safely ambulate without assistive device 2. Increase completion time for mobility ADL performance 3. Increased fall risk Patient is assessed as a 56555 moderate complexity complexity based on the following: History: 77-year-old male with impairment level findings, functional limitations, and past medical history as indicated above Examination: Demonstrable impairment in strength, balance, and mobility level with underlying impairments and functional limitations as documented above Presentation: Evolving Decision Makin moderate complexity Goals: N/A. PT evaluation and 1-2 treatment sessions only for functional mobility training using recommended AD and for HEP instruction. Plan of Care/Treatment Plan: N/A. PT evaluation and 1-2 treatment session only for functional mobility training using recommended AD and for HEP instruction. DISCHARGE RECOMMENDATIONS: Home when medically cleared by orthopedic surgeon. Recommend outpatient PT services to optimize functional mobility outcomes and facilitate return to independent community ambulation without an assistive device. TREATMENT CODE/TIME: 88769 x 20 minutes, 9753 0 x 23 minutes beginning at 15:22 PM Thank you for the opportunity to participate in the care of this patient. Thank you for the opportunity to participate in the care of this patient. Salima Traore PT, DPT, CLT [facility] [place], [place]
--- NOTE | 2022-08-15 16:05 | W.ANESPOSTOP ---
Postoperative Evaluation Date, Time and Location Date Performed: 08/15/22 Time Performed: 16:05 Patient Location: Day Surgery Unit Vital Signs Most Recent Imported Vital Signs: Most Recent Vital Signs Temp Pulse Resp BP Pulse Ox 36.3 C L 62 16 147/86 H 93 08/15/22 14:10 08/15/22 14:10 08/15/22 14:10 08/15/22 14:10 08/15/22 14:10 Pain Score Most Recent Pain Score: Most Recent Pain Score Pain Level 1 08/15/22 14:10 Assessment Mental Status: Awake (Alert & Oriented to Patient Baseline) Airway and Respiratory Function: Patent airway with normal (patient baseline) respiratory exam Cardiovascular Function: Hemodynamically Stable Hydration Status: Adequately Hydrated Nausea & Vomiting: No Nausea or Vomiting Pain: Pain is tolerable per patient Peripheral Nerve Block: Patient did not receive a nerve block
== END 2022-08-15 16:45 | disposition home or self-care (01) ==
PROVIDERS: PCP Nurse Practitioner Family; Visit Provider Student in an Organized Health Care Education/Training Program
PROC: (CPT 27130; principal; 2022-08-15 10:30)
DX: M16.11 Unilateral primary osteoarthritis, right hip (principal); E78.5 Hyperlipidemia, unspecified; I10 Essential (primary) hypertension; E11.9 Type 2 diabetes mellitus without complications; Z79.84 Long term (current) use of oral hypoglycemic drugs
CPT/HCPCS: 27130; 20985; 97162; 97530; 73501; J0360; J0690; J1100; J2405

== ENCOUNTER 2022-08-31 10:20 | Outpatient (CLI) | payer OTHER, SELFPAY ==
--- NOTE | 2022-08-31 09:00 | DI.RAD_ITS ---
Exam(s) XR HIP RT COMPLETE AP PELVIS EXAM: XR HIP RT COMPLETE AP PELVIS CLINICAL HISTORY: 1st post op S/P R MARIZOL. TECHNIQUE: 2D digital imaging was performed. COMPARISON: CT CT ABDOMEN PELVIS CTA from 12/24/2020 CR XR PELVIS AP from 08/14/2022 FINDINGS: 3 views Position alignment of the components of the right hip prosthesis are satisfactory. No fracture or lo osening evident. No radiographic evidence of osteomyelitis. Moderate degenerative changes are again noted in the opposite-left hip. Lower most aspect of aortic EVAR noted. IMPRESSION: Satisfactory appearance of right hip prosthesis. DATA REPOSITORY: RADIATION DOSE DELIVERED:
== END 2022-08-31 10:21 | disposition home or self-care (01) ==
LOC: DIORS 10:20
PROVIDERS: PCP Nurse Practitioner Family; Referring Provider Nurse Practitioner Family; Visit Provider Physician Assistant
DX: Z96.641 Presence of right artificial hip joint (principal); Z47.1 Aftercare following joint replacement surgery
CPT/HCPCS: 73502

== ENCOUNTER 2022-09-05 07:23 | Emergency (ER) | payer OTHER, SELFPAY ==
--- NOTE | 2022-09-05 | DI.CT_ITS ---
Exam(s) CT LOWER EXTREMITY RT WO EXAM: CT LOWER EXTREMITY RT WO CLINICAL HISTORY: Eval R periprosthetic lesser trochanter fracture. TECHNIQUE: Imaging Protocol: Axial computed tomography images with coronal and sagittal reformatted images were created and reviewed. COMPARISON: CR XR HIP RT COMPLETE AP PELVIS from 09/05/2022 FINDINGS: Bones: There is a displaced acute fracture of the lesser trochanter. There is also a minimally disp laced fracture involving the anterior column of the acetabulum. The patient has a right total hip re placement. No cellulitic or osteomyelitic changes are identified. No lytic or sclerotic lesions are identified. Soft Tissues: There is fluid seen in or around the right tensor fascia marichuy suspicious for hematoma. IMPRESSION: 1. Acute displaced fracture of the lesser trochanter of the right femur. 2. Minimally displaced fracture involving the anterior column of the right acetabulum. 3. Fluid attenuation in the soft tissues anterior to the proximal femur suspicious for hematoma. RADIATION DOSE DELIVERED: 416.13mGy.cm Total DLP 416.13mGy.cm Total DLP DATA REPOSITORY: All CT scans at this facility are submitted to the National Radiology Data Registry (NRDR) Dose Index Registry (DIR) with the [employer] (ACR). RADIATION OPTIMIZATION: All CT scans at this facility use at least one of these dose optimization te chniques: automated exposure control; mA and/or kV adjustment per patient size (includes targeted exa ms where dose is matched to clinical indication); or iterative reconstruction.
--- NOTE | 2022-09-05 | DI.RAD_ITS ---
Exam(s) XR FEMUR RT EXAM: XR FEMUR RT CLINICAL HISTORY: eval femur for periprosthetic fracture. TECHNIQUE: 2D digital imaging was performed of the right femur. Four images were obtained. AP and l ateral views were obtained. COMPARISON: No exams were available for comparison FINDINGS: BONES: There is again seen an acute displaced fracture of the lesser trochanter of the right femur. No bony destructive lesion is seen. The patient has a right total hip replacement. The distal femur is intact. SOFT TISSUE: Atherosclerosis. IMPRESSION: Displaced fracture of the lesser trochanter of the right femur. DATA REPOSITORY: RADIATION DOSE DELIVERED:
[2022-09-05 07:25] VITALS: BP 152/80; PULSE 65; RESP 18; TEMP 36.8; O2SAT 99
[2022-09-05] MEDS: Lidocaine 5% Patch 2 PATCH TP (08:59)
--- OUTSIDE RECORDS SUMMARY | 2022-09-05 08:59 | XMS_ITS | Continuity of Care Document ---
Author Name Unknown Organization [facility] Address [address] [place] [address] Care Team Providers Care Representative Personal Service Name Role Phone Maria Esther Haynes Primary Care Physician Encounter [facility] Date(s): 08/28/22 - 08/28/22 [facility] [address] [place] [address] Encounter Diagnosis Obstructive sleep apnea syndrome(Discharge Diagnosis) - 08/17/22 Obstructive sleep apnea (adult) (pediatric)(Final) - Discharge Disposition: Home or Self Care Attending Physician: Beverly Maldonado STAMP MAKER Allergies, Adverse Reactions, Alerts Substance Reaction Severity Status codeine Unknown Active Assessment and Plan Future Appointments Medications amLODIPine 10 mg oral tablet 0 Refill(s) Start Date: 05/17/22 Status: Ordered atorvastatin 80 mg oral tablet 0 Refill(s) Start Date: 05/17/22 Status: Ordered buPROPion 200 mg/12 hours (SR) oral tablet, extended release 200 mg = 1 tab, Oral, BID, # 60 tab, 0 Refill(s) Start Date: 05/17/22 Status: Ordered buPROPion 200 mg/12 hours (SR) oral tablet, extended release 200 mg = 1 tab, Oral, BID, # 60 tab, 0 Refill(s) Start Date: 05/17/22 Status: Ordered buPROPion 200 mg/12 hours (SR) oral tablet, extended release 200 mg = 1 tab, Oral, BID, # 60 tab, 0 Refill(s) Start Date: 05/17/22 Status: Ordered busPIRone 10 mg oral tablet 0 Refill(s) Start Date: 05/17/22 Status: Ordered celecoxib 200 mg oral capsule 200 mg = 1 cap, Oral, Daily, # 30 cap, 0 Refill(s) Start Date: 05/17/22 Status: Ordered donepezil 5 mg oral tablet 0 Refill(s) Start Date: 05/17/22 Status: Ordered FLUoxetine 20 mg oral capsule 90 EA, 0 Refill(s) Start Date: 05/17/22 Status: Ordered FLUoxetine 40 mg oral capsule 40 mg = 1 cap, Oral, Daily, # 30 cap, 0 Refill(s) Start Date: 05/17/22 Status: Ordered FLUoxetine 40 mg oral capsule 40 mg = 1 cap, Oral, Daily, # 30 cap, 0 Refill(s) Start Date: 05/17/22 Status: Ordered irbesartan 300 mg oral tablet 300 mg = 1 tab, Oral, Daily, 0 Refill(s) Start Date: 05/17/22 Status: Ordered LORazepam 1 mg oral tablet 0 Refill(s) Start Date: 05/17/22 Status: Ordered memantine 10 mg oral tablet 0 Refill(s) Start Date: 05/17/22 Status: Ordered metFORMIN 750 mg oral tablet, extended release 0 Refill(s) Start Date: 05/17/22 Status: Ordered Metoprolol Succinate ER 50 mg oral tablet, extended release 0 Refill(s) Start Date: 05/17/22 Status: Ordered Nystop 100,000 units/g topical powder 0 Refill(s) Start Date: 05/17/22 Status: Ordered omeprazole 20 mg oral delayed release capsule 0 Refill(s) Start Date: 05/17/22 Status: Ordered ondansetron 4 mg oral tablet 0 Refill(s) Start Date: 05/17/22 Status: Ordered rOPINIRole 1 mg oral tablet 0 Refill(s) Start Date: 05/17/22 Status: Ordered Problem List Condition Confirmation Course Effective Dates Status H ealth Status Informant Abdominal aortic aneurysm Confirmed Active Depressive disorder Confirmed Active History of injury Confirmed Active Hyperlipidemia Confirmed Active Hypertensive disorder Confirmed Active Injury of head Confirmed Active Migraine Confirmed Active Obstructive sleep apnea syndrome 1 Confirmed Active Prediabetes Confirmed Active Restless legs Confirmed Active 1BiPAP 25/27/4 cm Valeria/Adapt Social History Social History Type Response Tobacco Never tobacco user T obacco Use:. Sex Male Progress note * Gil Gay: PERFORM Event Display: Progress Note - Physician Authored Date: [id number] Physician Outpatient Note * Beverly Maldonado STAMP MAKER: PERFORM Event Display: Office Clinic Note Physician Authored Date: [id number] SOLE BRUNO :1945 Age:77 years Sex:Male Visit Date:08/28/2022 Primary Care Physician: Maria Esther Haynes METALLURGY TEACHER-C History of Present Illness Sole Bruno has a Zoom visit for QUINTEN follow-up. He has given consent to have a telehealth visit. Patient is at home, provider is in the office. ?? Ian was last seen by me on 05/26/2022. 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 He had a PAP retitration study in November of 2011 and no optimal pressure was identified. It wasrecommended that he start auto BIPAP, I-max 25 cm, E-min 17 cm with a pressure support of 4 cm. Last visit he was using BiPAP 25/17/4 cm with great compliance and reduction in AHI but his machinehe received through the recall was not working properly. New BiPAP ordered. ?? Sole tells me he is using his BiPAP every night and things are going fine. He is using a FFM and tolerates this well. The air pressure feels fine. He is comfortable with cleaning and changing out parts. He sleeps from about 9pm to 6- 9 am. He is waking from hip pain (he had a recent surgery). He isnot waking choking or gasping and his is not aware of any snoring. He feels he sleeps much better with BiPAP. ?? COMPLIANCE DATA REVIEWED WITH PATIENT: Dates 07/26/22-08/24/22,??Days used?? 30, average use??10 hours,??8 minutes,??95 th percentile pressure?? 22.1/18.1??cm,??95 th percentile air leak 0.9 lpm, AHI??1.2/hr Clinic Assessment/Plan 1.??Obstructive sleep apnea syndrome??G47.33 QUINTEN of unknown severity using BiPAP 25/17/4 cm with excellent compliance and reduction in AHI. He benefits from BiPAP and continued use is recommended. He/She is advised to keep up with the routine maintenance of the machine and to clean/replace parts as needed. I will see him back in one year. He is asked to call our office for any sleep related questions or concerns. I provided greater than 20 minutes in the care of this patient, more than half the time was spent in [id number] counseling. CC: Valeria/Adapt Health Problem List/Past Medical History Ongoing Abdominal aortic aneurysm Depressive disorder History of injury Hyperlipidemia Hypertensive disorder Injury of head Migraine Obstructive sleep apnea syndrome Prediabetes Restless legs Historical No qualifying data Medications What How Much When Instructions Unchanged amLODIPine (amLODIPine 10 mg oral tablet) Unchanged atorvastatin (atorvastatin 80 mg oral tablet) Unchanged buPROPion (buPROPion 200 mg/ 12 hours (SR) oral tablet, extended release) 1 tab Oral (given by mouth) 2 times a day Unchanged buPROPion (buPROPion 200 mg/ 12 hours (SR) oral tablet, extended release) 1 tab Oral (given by mouth) 2 times a day Unchanged buPROPion (buPROPion 200 mg/ 12 hours (SR) oral tablet, extended release) 1 tab Oral (given by mouth) 2 times a day Unchanged busPIRone (busPIRone 10 mg oral tablet) Unchanged celecoxib (celecoxib 200 mg oral capsule) 1 Capsules Oral (given by mouth) Every day Unchanged donepezil (donepezil 5 mg oral tablet) Unchanged FLUoxetine (FLUoxetine 20 mg oral capsule) 90 EA ?? Unchanged FLUoxetine (FLUoxetine 40 mg oral capsule) 1 Capsules Oral (given by mouth) Every day Unchanged FLUoxetine (FLUoxetine 40 mg oral capsule) 1 Capsules Oral (given by mouth) Every day Unchanged irbesartan (irbesartan 300 mg oral tablet) 1 tab Oral (given by mouth) Every day Unchanged LORazepam (LORazepam 1 mg oral tablet) Unchanged memantine (memantine 10 mg oral tablet) Unchanged metFORMIN (metFORMIN 750 mg oral tablet, extended release) Unchanged metoprolol (Metoprolol Succinate ER 50 mg oral tablet, extended release) Unchanged nystatin topical (Nystop 100,000 units/ g topical powder) Unchanged omeprazole (omeprazole 20 mg oral delayed release capsule) Unchanged ondansetron (ondansetron 4 mg oral tablet) Unchanged rOPINIRole (rOPINIRole 1 mg oral tablet) Allergies codeine Social History Electronic Cigarette/Vaping Electronic Cigarette Use: Never. Tobacco Never tobacco user Tobacco Use:. Electronically Signed on 07/10/23 02:25 PM Beverly Maldonado STAMP MAKER Patient Care team information Care Team Personnel Name: Maria Esther Haynes Position: No Access Member Role: Primary Care Physician Address: Address: [address] [address]
--- NOTE | 2022-09-05 09:15 | DI.RAD_ITS ---
Exam(s) XR HIP RT COMPLETE AP PELVIS EXAM: XR HIP RT COMPLETE AP PELVIS CLINICAL HISTORY: hip pain, post reduction. TECHNIQUE: 2D digital imaging was performed of the right hip. Three images were obtained. AP pelvis and lateral right hip views were obtained. COMPARISON: CR XR HIP RT COMPLETE AP PELVIS from 08/31/2022 FINDINGS: BONES: There is now an acute displaced fracture of the lesser trochanter of the right femur. No bony destructive lesion is seen. JOINTS: No dislocation present. There is again seen a right total hip replacement which appears unrem arkable. Degenerative changes are again seen in the left hip characterized by joint space narrowing and acetabular spurring. SOFT TISSUE: There is soft tissue swelling around the right hip. Atherosclerosis is present. The pa tient has a stent in the distal aorta and iliac arteries. IMPRESSION: Acute displaced fracture of the lesser trochanter of the right femur. DATA REPOSITORY: RADIATION DOSE DELIVERED:
--- NOTE | 2022-09-05 09:32 | W.ED.GENAD ---
Discharge Plan Disposition Patient Disposition: Home Discharge Details Clinical Impression: Closed fracture of lesser trochanter of right femur Primary Care Provider: Maria Esther Haynes ED Provider: Ashley Benítez Home Meds and New Rx's Prescriptions: Continued [id number]-wnm-[id number] [Soitwe-Qlymp-JEV (with antiox)] 500-500-66.7 mg tablet 1 tab PO BID (DME) lancets [FreeStyle Lancets] 28 gauge misc 1 ea Miscellaneous DAILY Qty: 100 1RF Rx Instructions: E11.9 to maintain A1C less than 7 (DME) FreeStyle Lite Strips Strip 1 ea Miscellaneous DAILY Qty: 100 3RF Rx Instructions: E11.9 to maintain A1C less than 7 donepezil 10 mg tablet 10 mg PO QHS Qty: 90 3RF ropinirole 2 mg tablet 2 mg PO QHS acetylcysteine [NAC] 600 mg capsule 1,200 mg PO BID metoprolol tartrate 50 mg tablet 50 mg PO DAILY multivitamin Tablet 1 tab PO DAILY metformin 750 mg tablet extended release 24 hr 750 mg PO HS Qty: 90 3RF albuterol sulfate [ProAir HFA] 90 mcg/actuation HFA aerosol inhaler 2 puff Inhalation Q6H PRN Qty: 3 1RF pseudoephedrine HCl [Sudafed] 30 mg tablet 60 mg PO PRN PRN amlodipine 10 mg tablet 10 mg PO DAILY bupropion HCl 100 mg tablet 200 mg PO BID atorvastatin 80 mg tablet 80 mg PO QHS Qty: 90 3RF fluoxetine 20 mg capsule 40 mg PO DAILY PreserVision AREDS-2 250-90-40-1 mg capsule 2 tab PO DAILY sildenafil 50 mg tablet 50 mg PO DAILY PRN Rx Instructions: administer 30 minutes to 4 hours before activity memantine 10 mg tablet 10 mg PO BID Qty: 180 3RF cyclobenzaprine 5 mg tablet 5 mg PO TID PRN (Reason: muscle spasm) Qty: 15 0RF diphenhydramine HCl 25 mg capsule 25 mg PO HS irbesartan [Avapro] 300 mg tablet 300 mg PO DAILY nystatin [Nystop] 100,000 unit/gram powder 1 pwd TOPICAL DAILY omeprazole 40 mg capsule,delayed release(DR/EC) 40 mg PO HS Safron Lift PO DAILY celecoxib 200 mg capsule 200 mg PO BID PRN (Reason: pain) Qty: 60 1RF aspirin 81 mg tablet,delayed release (DR/EC) 81 mg PO BID Qty: 60 0RF acetaminophen [Acetaminophen Extra Strength] 500 mg tablet 1,000 mg PO TID Qty: 90 0RF No Action oxycodone 10 mg tablet 10 mg PO .q4-6 hr MDD 60mg PRN (Reason: pain) Qty: 20 0RF Discharge Instructions Additional Instructions: Please follow-up with Dr. Skinner at your scheduled appointment Weight-bear as instructed with your walker Return earlier should you have new or worsening complaints Referrals: Maria Esther Haynes [Primary Care Provider] - Discharge Data Discharge Date/Time-TO BE ENTERED AT DEPARTURE: 09/05/22 15:25 Medical Decision Making 77-year-old gentleman with recurrent right hip pain, status post hip replacement procedure on August 15, benign and resting comfortably at time of assessment Case discussed with Dr. Skinner who evaluates the patient, recommends labs and x-ray, x-ray shows evidence actually of lesser trochanteric fracture, pain is returning patient given 10 mg of oxycodone, and diagnostic labs, CBC CMP and CPK do not show evidence of significant acute abnormality Dr. Skinner paged [phone], in the operating room, pending return call CT was ordered and femur x-ray per Dr. Skinner, lesser trochanteric fracture, patient will be discharged home with walker for weightbearing assistance Return precautions discussed and patient expressed understanding HPI General Date/Time Provider Initiated Documentation: 09/05/22 07:40. HPI Narrative: This 77-year-old male presents post hip replacement on 15 August with report of persistent muscular pain in his right hip. States over the course of the past week he has had worsening pain. He has been taking oxycodone and Valium in addition to Tylenol and Celebrex for discomfort. Denies any chest pain or shortness of breath. He denies any abdominal pain. He denies any testicular pain. He went to a postoperative appointment on the with reported normal exam and x-ray. He states the pain is predominantly worse in the evening and early mornings. This morning he had 50 mg of volume in between the hours of 9 and 4 AM and 5 mg of oxycodone and had excruciating pain which is why he presents. Related Data Home Medications Medication Instructions Recorded Confirmed ckrizyjzioo-xkd-ktwgdzzyx-hrb 1 tab PO BID 07/02/18 09/05/22 149-hyalur 500 mg-500 mg-66.7 mg tablet (Djszjvjdlap-Nmrgapdelqy-BUJ (with antiox)) diphenhydramine HCl 25 mg capsule 25 mg PO HS 12/26/18 09/05/22 ropinirole 2 mg tablet 2 mg PO QHS 12/26/18 09/05/22 blood sugar diagnostic (FreeStyle #100 strips 04/30/19 09/05/22 Lite Strips) lancets 28 gauge (FreeStyle #100 ea 04/30/19 09/05/22 Lancets) irbesartan 300 mg tablet (Avapro) 300 mg PO DAILY 09/19/19 09/05/22 metformin 750 mg tablet,extended 750 mg PO HS diabetes #90 tabs 11/25/19 09/05/22 release 24 hr albuterol sulfate 90 mcg/actuation 2 puff inhalation Q6H PRN ##3 12/23/19 09/05/22 aerosol inhaler (ProAir HFA) pseudoephedrine HCl 30 mg tablet 60 mg PO PRN PRN 07/22/20 09/05/22 (Sudafed) acetylcysteine 600 mg capsule (NAC) 1,200 mg PO BID 04/20/21 09/05/22 amlodipine 10 mg tablet 10 mg PO DAILY 05/24/21 09/05/22 bupropion HCl 100 mg tablet 200 mg PO BID 05/24/21 09/05/22 metoprolol tartrate 50 mg tablet 50 mg PO DAILY 06/20/21 09/05/22 nystatin 100,000 unit/gram topical 1 pwd topical DAILY 07/27/21 09/05/22 powder (Nystop) omeprazole 40 mg capsule,delayed 40 mg PO HS 07/27/21 09/05/22 release multivitamin 1 tab PO DAILY 08/23/21 09/05/22 atorvastatin 80 mg tablet 80 mg PO QHS #90 tabs 02/02/22 09/05/22 donepezil 10 mg tablet 10 mg PO QHS #90 tabs 02/21/22 09/05/22 fluoxetine 20 mg capsule 40 mg PO DAILY 02/21/22 09/05/22 sildenafil 50 mg tablet 50 mg PO DAILY PRN 05/30/22 09/05/22 vit C 250 mg-vit E 90 mg-zinc 40 2 tab PO DAILY 05/30/22 09/05/22 mg-copper 1 zq-obdbvd-gzpmxi capsule (PreserVision AREDS-2) memantine 10 mg tablet 10 mg PO BID #180 tabs 06/14/22 09/05/22 Safron Lift PO DAILY 08/14/22 08/31/22 acetaminophen 500 mg tablet 1,000 mg PO TID #90 tabs 08/15/22 09/05/22 (Acetaminophen Extra Strength) aspirin 81 mg tablet,delayed 81 mg PO BID #60 tabs 08/15/22 09/05/22 release celecoxib 200 mg capsule 200 mg PO BID PRN pain #60 caps 08/15/22 09/05/22 cyclobenzaprine 5 mg tablet 5 mg PO TID PRN muscle spasm #15 09/05/22 tabs oxycodone 10 mg tablet 10 mg PO .q4-6 hr PRN pain #20 tabs 09/05/22 Previous Rx's Medication Instructions Recorded blood sugar diagnostic (FreeStyle #100 strips 04/30/19 Lite Strips) lancets 28 gauge (FreeStyle #100 ea 04/30/19 Lancets) metformin 750 mg tablet,extended 750 mg PO HS diabetes #90 tabs 11/25/19 release 24 hr albuterol sulfate 90 mcg/actuation 2 puff inhalation Q6H PRN ##3 12/23/19 aerosol inhaler (ProAir HFA) atorvastatin 80 mg tablet 80 mg PO QHS #90 tabs 02/02/22 donepezil 10 mg tablet 10 mg PO QHS #90 tabs 02/21/22 memantine 10 mg tablet 10 mg PO BID #180 tabs 06/14/22 acetaminophen 500 mg tablet 1,000 mg PO TID #90 tabs 08/15/22 (Acetaminophen Extra Strength) aspirin 81 mg tablet,delayed 81 mg PO BID #60 tabs 08/15/22 release celecoxib 200 mg capsule 200 mg PO BID PRN pain #60 caps 08/15/22 cyclobenzaprine 5 mg tablet 5 mg PO TID PRN muscle spasm #15 09/05/22 tabs oxycodone 10 mg tablet 10 mg PO .q4-6 hr PRN pain #20 tabs 09/05/22 Allergies Allergy/AdvReac Type Severity Reaction Status Date / Time codeine AdvReac Intermediate N/V Verified 08/31/22 10:23 lisinopril AdvReac cough Verified 08/31/22 10:23 General Stated Complaint: Orthopedic SUHAS: 4 PFSH All Active Problems (Updated 09/05/22 @ 14:51 by KEERTHI Briseno) Closed fracture of lesser trochanter of right femur (Acute) Pain in hip region after hip replacement (Acute) Muscle spasm of right lower extremity (Acute) History of total right hip replacement (Acute 08/15/22) Abdominal aortic aneurysm (AAA) >39 mm diameter (Acute 01/05/17) 42cm -201606/25/17 4.4 cm distal abdominal aortic aneurysm 4.20 cm 05/14/18 4.50 cm 12/12/18 4.60x4.50 cm 06/12/19 4.60x4.60 cm repeat 1 yr Depressive disorder, not elsewhere classified (Chronic 05/21/12) Diaphragmatic hernia (Acute 05/21/12) Diverticulosis of colon (without mention of hemorrhage) (Acute 05/21/12) Decreased cardiac ejection fraction (Acute 02/07/17) Diabetes mellitus (Acute 05/31/16) Gastroesophageal reflux disease without esophagitis (Acute 05/21/12) Obesity, unspecified (Acute 08/03/11) Osteoarthritis of first metatarsophalangeal joint (Acute 11/04/14) Osteoarthritis of right knee (Acute 12/24/14) Dr. 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 Suspicion of three column injury. [facility] D/C summary (05/20/18-05/27/18). Depressive disorder Detached retina Essential hypertension (11/22/12) GERD (gastroesophageal reflux disease) Hiatal hernia Hx of fall April 2018, fall off ladder, fractures cervical and T5; no surgery, brace worn Hyperlipidemia Hypertension Intermittent asthma Laceration of left thumb (11/16/18) Low left ventricular ejection fraction Macular degeneration Macular degeneration of left eye Obstructive sleep apnea (adult) (pediatric) (05/21/12) SYBIL Maldonado Pre-op evaluation Sleep apnea Type 2 diabetes mellitus Surgical History Great toe implant (12/01/14) Jason Aviles Hx of [id number] bypass stent 06/06/21 Hx of aortic aneurysm repair stents, 04/25/21 S/P cataract surgery bilateral S/P left inguinal hernia repair (~2018) x2 S/P right knee arthroscopy 1969's S/P trigger finger release early at [facility] S/P vasectomy Tonsillectomy and adenoidectomy Family History Mother Substance abuse Diabetes Essential hypertension Hyperlipidemia Skin cancer FH: ovarian cancer Alcohol abuse Sister Neoplasm lung Ca with Mets Macular degeneration Father Alcohol abuse Depression Social History Smoking/Tobacco Use Status: Former Tobacco Use Smoking risk assessment performed?: Yes Alcohol Intake: current Alcohol Intake frequency: a few times a month Alcohol type: beer and hard liquor Drug use: Never Substance use type: does not use Household members: spouse Housing: house Number of Children: 3 number of grandchildren: 9 Communication Needs: Corrective Lenses current occupation: retired Pets and animals: Yes Pets and animals: cat(s) Current gender identity: male What is your relationship status?: Panel score (0-1 are the most socially isolated patients): 1 What type of physical activity do you participate in: additional Details: Pt exercise group Seatbelt use: always 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 Working smoke detector in home: Yes Fire extinguisher in home: Yes Carbon monox detector in home: Yes Course Vital Signs Vital signs: Vital Signs Temperature 36.8 C 09/05/22 07:25 Pulse 65 09/05/22 07:25 Respiratory Rate 18 09/05/22 07:25 Blood Pressure 152/80 H 09/05/22 07:25 Pulse Oximetry 99 09/05/22 07:25 Temperature 36.8 C 09/05/22 07:25 Temperature Source Oral 09/05/22 07:25 Pulse 65 09/05/22 07:25 Respiratory Rate 18 09/05/22 07:25 Respiratory Effort Normal, Non-Labored 09/05/22 07:36 Blood Pressure 152/80 H 09/05/22 07:25 Blood Pressure Position Supine 09/05/22 07:25 Pulse Oximetry 99 09/05/22 07:25 Oxygen Delivery Method Room Air 09/05/22 07:25 Oxygen Flow Rate 0 09/05/22 07:25 Pain Level 0 09/05/22 07:25 Lab/Test Results Lab/Test Results: Laboratory Tests Range/Units 09/05/22 09:17 Sodium Cancelled Potassium Cancelled Chloride Cancelled Carbon Dioxide Cancelled Anion Gap Cancelled BUN Cancelled Creatinine Cancelled Est GFR (CKD-EPI 2020) Cancelled Glucose Cancelled Calcium Cancelled
--- NOTE | 2022-09-05 09:33 | W.ORTHOCONSU ---
Date of service: 09/05/22 Time of Service: 09:36 History of Present Illness History of Present Illness Chief Complaint: Left Hip Pain after Replacement Narrative: Ian is a 77-year-old who is about 3 weeks status post right hip replacement. He has had difficulties with spasms and with some postoperative pain. I have been causing pain occasion with him and his , both personally and through my nurse, for these ongoing symptoms. They seem to be spastic in nature. He was seen at his follow-up where he was seemingly doing well. His preoperative symptoms had improved. He was able to ambulate with minimal assistance. X-rays were negative for any fracture or concerning features. He has had these ongoing issues with spasms and has not been able to tolerate any massage or stretching. He has used heat. The oxycodone did not seem to help and he has been diminishing that she uses he does not want to use that medication. He does take the anti-inflammatory. He did try Valium last night which I prescribed but she did not think helped out although he did sleep from 9-3. He denies any numbness or tingling. He denies any instability about the right hip. He does report always having tight muscles. However, the bouts of pain this morning were so intense that he requested EMS transfer to the emergency department. In the ED he has had minimal pain except with certain motions of the hip, mostly flexion. He is able to ambulate independently within the room. He has been able to reposition himself in the bed. No reported trauma. Consults Consult date: 09/05/22 Requesting physician: Ashley Benítez Consult Reason Hip pain after hip replacement Assessment and Plan Assessment and plan (1) Muscle spasm of right lower extremity: Status: Acute (2) Pain in hip region after hip replacement: Status: Acute (3) Periprosthetic fracture around internal prosthetic right hip joint: Status: Acute (4) Closed fracture of anterior column of right acetabulum: Status: Acute Assessment and plan: Ian is a 77 year old who is 3 weeks s/p right hip replacement. He had made some initial progress but then reported worsening pain and a spastic like property of his right hip with all motions even intolerance to palpation in the side change into the range of motion. This worsened such that he came into the emergency department and interestingly was diagnosed now with a paracentral fracture about the right hip involving lesser trochanter without any shaft metaphyseal extension as well as a nondisplaced anterior column fracture of the pelvis. It is interesting is that he did not have any of this clinically or radiographically at his last appointment a week ago although he denies any intervening trauma. Nevertheless, this does explain his pain. I do think is having muscle spasms from the lesser trochanter fracture and some increase in pain due to these fractures about his hip. He did better with a higher dose of oxycodone therefore we will continue that. I also did prescribe muscle relaxers to assist with some of this pain. I have encouraged him to use a walker for the next 2 to 4 weeks. We will check closely but I expect that things will improve for just a little bit longer. Fortunately 90s fractures extend into any of the primary fixation points and need no revision or augmentation. Review of Systems All systems reviewed & are unremarkable except as noted in HPI and below PFSH All Active Problems (Updated 09/08/22 @ 07:36 by Theron Skinner MD) Closed fracture of anterior column of right acetabulum (Acute) Periprosthetic fracture around internal prosthetic right hip joint (Acute) Closed fracture of lesser trochanter of right femur (Acute) Pain in hip region after hip replacement (Acute) Muscle spasm of right lower extremity (Acute) History of total right hip replacement (Acute 08/15/22) Abdominal aortic aneurysm (AAA) >39 mm diameter (Acute 01/05/17) 42cm -201606/25/17 4.4 cm distal abdominal aortic aneurysm 1/18 4.20 cm 05/14/18 4.50 cm 12/12/18 4.60x4.50 cm 06/12/19 4.60x4.60 cm repeat 1 yr Depressive disorder, not elsewhere classified (Chronic 05/21/12) Diaphragmatic hernia (Acute 05/21/12) Diverticulosis of colon (without mention of hemorrhage) (Acute 05/21/12) Decreased cardiac ejection fraction (Acute 02/07/17) Diabetes mellitus (Acute 05/31/16) Gastroesophageal reflux disease without esophagitis (Acute 05/21/12) Obesity, unspecified (Acute 08/03/11) Osteoarthritis of first metatarsophalangeal joint (Acute 11/04/14) Osteoarthritis of right knee (Acute 12/24/14) Dr[facility] 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 Suspicion of three column injury. [facility] D/C summary (05/20/18-05/27/18). Depressive disorder Detached retina Essential hypertension (11/22/12) GERD (gastroesophageal reflux disease) Hiatal hernia Hx of fall April 2018, fall off ladder, fractures cervical and T5; no surgery, brace worn Hyperlipidemia Hypertension Intermittent asthma Laceration of left thumb (11/16/18) Low left ventricular ejection fraction Macular degeneration Macular degeneration of left eye Obstructive sleep apnea (adult) (pediatric) (05/21/12) SYBIL -Beverly Maldonado Pre-op evaluation Sleep apnea Type 2 diabetes mellitus Surgical History Great toe implant (12/01/14) Jason Aviles Hx of [id number] bypass stent 06/06/21 Hx of aortic aneurysm repair stents, 04/25/21 S/P cataract surgery bilateral S/P left inguinal hernia repair (~2018) x2 S/P right knee arthroscopy 1969' S/P trigger finger release early at [facility] S/P vasectomy Tonsillectomy and adenoidectomy Family History Mother Substance abuse Diabetes Essential hypertension Hyperlipidemia Skin cancer FH: ovarian cancer Alcohol abuse Sister Neoplasm lung Ca with Mets Macular degeneration Father Alcohol abuse Depression Social History Smoking/Tobacco Use Status: Former Tobacco Use Smoking risk assessment performed?: Yes Alcohol Intake: current Alcohol Intake frequency: a few times a month Alcohol type: beer and hard liquor Drug use: Never Substance use type: does not use Household members: spouse Housing: house Number of Children: 3 number of grandchildren: 9 Communication Needs: Corrective Lenses current occupation: retired Pets and animals: Yes Pets and animals: cat(s) Current gender identity: male What is your relationship status?: Panel score (0-1 are the most socially isolated patients): 1 What type of physical activity do you participate in: additional Details: Pt exercise group Seatbelt use: always 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 He was able to sit down on the edge of bed and pushed himself back onto the bed. He seemed to be in no pain doing these motions. Evaluation of the right leg showed no areas of fluctuance. No significant fullness. No significant distal edema, no visible ecchymosis. He is able to tolerate some gentle internal and external rotation of the right hip. He is able to demonstrate some active flexion of the right hip. However, when I attempt to passively flex past 90 degrees or extend the right knee he describes a cramping and spastic sensation in the posterior aspect of the leg mandating that I put his leg down. These seem to improve as soon as the leg goes back down into a semiflexed position of the hip and a generally flexed position of the right knee. There is some pain to palpation proximally of the thigh and groin region. Results Last Vital Signs Temp 36.8 C 09/05/22 07:25 Pulse 65 09/05/22 07:25 Resp 18 09/05/22 07:25 BP 152/80 H 09/05/22 07:25 Pulse Ox 99 09/05/22 07:25 Labs 09/05/22 09:43 09/05/22 09:43 Labs: Laboratory Results - last 24 hr 09/05/22 09:17 Sodium Cancelled Potassium Cancelled Chloride Cancelled Carbon Dioxide Cancelled Anion Gap Cancelled BUN Cancelled Creatinine Cancelled Est GFR (CKD-EPI 2020) Cancelled Glucose Cancelled Calcium Cancelled Imaging Imaging Studies: XR of the right hip demonstrates a hip replacement in good position. However, there has been interval fracture of the lesser trochanter. This is proximally displaced. This was not seen on the intra-op or post-op images. XR of the right femur shows the above mentioned lesser trochanter fracture but it does not show any extension of the fracture into the femoral shaft. CT of the right hip once again shows adequate placement of the hip components. He does show the lesser trochanter fracture which seems to involve the majority of the lesser trochanter but does not have any extension into the metaphyseal region of the femur down to the shaft. No concern for loosening of the component. There also appears to be a fracture line through the anterior portion acetabular thing into the anterior pelvis. No displacement adjacent to the cup. No displacement of the fracture.
[2022-09-05 09:50] LABS: Abs Immature Grans 0.02 10^3/uL (0.0-0.06); Absolute Basophil Count 0.04 10^3/uL (0.0-0.2); Absolute Eosinophil Count 0.28 10^3/uL (0.0-0.7); Absolute Lymphocyte Count 1.98 10^3/uL (1.2-3.4); Absolute Monocyte Count 1.18 10^3/uL (0.1-0.8); Absolute Neutrophil Count 5.95 10^3/uL (1.2-6.7); Basophils % 0.4; HCT 39.8 % (40.0-50.0); HGB 13.2 g/dL (13.5-17.5); Immature Grans % 0.2; MCH 30.3 pg (27.0-33.0); MCHC 33.2 % (32.0-36.0); MCV 92 fL (80-95); MPV 9.4 fL (8.0-11.0); Monocytes % 12.5; Neutrophils % 62.9; Platelet Count 254 10^3/uL (130-400); RBC 4.35 10^6/uL (4.36-5.78); RDW 13.5 % (11.8-14.1); RDW-SD 45.3 fL; WBC 9.45 10^3/uL (4.4-10.8)
[2022-09-05 10:06] LABS: ALT 27 U/L (16-63); AST 22 U/L (15-37); Albumin 3.8 g/dL (3.4-5.0); Alkaline Phosphatase 182 U/L (46-116); Anion Gap 7.9 mmol/L (3-11); BUN 8 mg/dL (7-18); Bilirubin, Total 0.9 mg/dL (0.2-1.0); CO2 27.1 mmol/L (21.0-32.0); CREATININE 0.9 mg/dL (0.70-1.30); Calcium 9.8 mg/dL (8.5-10.1); Chloride 104 mmol/L (98-107); Estimated GFR 88.51 (mL/min/1.73m2); Glucose 139 mg/dL (74-106); Potassium 3.5 mmol/L (3.5-5.1); Sodium 139 mmol/L (136-145); Total Protein 7.9 g/dL (6.4-8.2)
[2022-09-05 10:08] LABS: Creatine Kinase 168 U/L (39-308)
[2022-09-05] MEDS: oxyCODONE 10 MG TAB PO (11:34)
[2022-09-05 15:15] VITALS: BP 178/91; PULSE 62; RESP 18; TEMP 36.7; O2SAT 89
== END 2022-09-05 15:25 | disposition home or self-care (01) ==
PROVIDERS: Emergency Provider Physician Assistant; PCP Nurse Practitioner Family
DX: M62.838 Other muscle spasm (principal); S72.121A Displaced fracture of lesser trochanter of right femur, initial encounter for closed fracture; M97.01XA Periprosthetic fracture around internal prosthetic right hip joint, initial encounter; S32.491A Other specified fracture of right acetabulum, initial encounter for closed fracture; E11.9 Type 2 diabetes mellitus without complications; Z79.84 Long term (current) use of oral hypoglycemic drugs; Z87.891 Personal history of nicotine dependence; Z96.641 Presence of right artificial hip joint
CPT/HCPCS: 36415; 73552; 80048; 80053; 82550; 99284; 73502; 73700; 85025; 99283

== ENCOUNTER 2022-09-28 15:32 | Outpatient (CLI) | payer OTHER, SELFPAY ==
--- NOTE | 2022-09-28 14:00 | DI.RAD_ITS ---
Exam(s) XR HIP RT AP LAT ONLY EXAM: XR HIP RT AP LAT ONLY CLINICAL HISTORY: f/u s/p R MARIZOL. TECHNIQUE: 2D digital imaging was performed. Three images were obtained. AP and lateral views were obtained. COMPARISON: CR XR HIP RT COMPLETE AP PELVIS from 09/05/2022 CR XR FEMUR RT from 09/05/2022 FINDINGS: BONES: There are stable post operative changes present. No new fracture or dislocation. There does a ppear to be mild displacement of the lesser trochanteric fracture fragment compared to the prior exam inations. This may be due to patient positioning. JOINTS: The orthopedic hardware is in good position. No evidence of hardware loosening. SOFT TISSUE: Normal. IMPRESSION: Stable right total hip arthroplasty. DATA REPOSITORY: RADIATION DOSE DELIVERED:
== END 2022-09-28 15:33 | disposition home or self-care (01) ==
LOC: DIORS 15:32
PROVIDERS: PCP Nurse Practitioner Family; Visit Provider Physician Assistant
DX: M97.01XD Periprosthetic fracture around internal prosthetic right hip joint, subsequent encounter (principal); Z47.1 Aftercare following joint replacement surgery; X58.XXXD Exposure to other specified factors, subsequent encounter
CPT/HCPCS: 73502

== ENCOUNTER 2022-10-19 13:25 | Outpatient (CLI) | payer OTHER, SELFPAY ==
--- NOTE | 2022-10-19 11:45 | DI.RAD_ITS ---
Exam(s) XR HIP RT AP LAT ONLY EXAM: XR HIP RT AP LAT ONLY CLINICAL HISTORY: F/U RIGHT MARIZOL. TECHNIQUE: 2D digital imaging was performed. Two images were obtained. AP and lateral views were ob tained. COMPARISON: CR XR HIP RT AP LAT ONLY from 09/28/2022 FINDINGS: BONES: There are stable post operative changes present. No fracture or dislocation. There is stable positioning of the lesser trochanteric fragment. JOINTS: The orthopedic hardware is in good position. No evidence of hardware loosening. SOFT TISSUE: Normal. IMPRESSION: Stable postoperative changes of a right total hip replacement.. DATA REPOSITORY: RADIATION DOSE DELIVERED:
== END 2022-10-19 13:26 | disposition home or self-care (01) ==
LOC: DIORS 13:26
PROVIDERS: PCP Nurse Practitioner Family; Visit Provider Student in an Organized Health Care Education/Training Program
DX: Z47.1 Aftercare following joint replacement surgery (principal); Z96.641 Presence of right artificial hip joint
CPT/HCPCS: 73502

== ENCOUNTER 2022-11-30 15:02 | Outpatient (CLI) | payer OTHER, SELFPAY ==
--- NOTE | 2022-11-30 11:15 | DI.RAD_ITS ---
Exam(s) XR HIP RT AP LAT ONLY EXAM: XR HIP RT AP LAT ONLY CLINICAL HISTORY: F/U FRACTURE. TECHNIQUE: 2D digital imaging was performed. Two images were obtained. AP and lateral views were ob tained. COMPARISON: CR XR HIP RT AP LAT ONLY from 10/19/2022 FINDINGS: BONES: There are stable post operative changes of a right total hip replacement are present. The ort hopedic hardware appears well seated. No fracture or dislocation. JOINTS: The orthopedic hardware is in good position. No evidence of hardware loosening. SOFT TISSUE: Normal. IMPRESSION: Stable postoperative changes. DATA REPOSITORY: RADIATION DOSE DELIVERED:
== END 2022-11-30 15:03 | disposition home or self-care (01) ==
LOC: DIORS 15:05
PROVIDERS: PCP Nurse Practitioner Family; Visit Provider Physician Assistant
DX: M97.01XA Periprosthetic fracture around internal prosthetic right hip joint, initial encounter (principal); Z98.890 Other specified postprocedural states
CPT/HCPCS: 73502

== ENCOUNTER 2023-03-15 14:19 | Outpatient (REF) | payer OTHER, SELFPAY ==
[2023-03-15 15:11] LABS: Hemoglobin A1C 7.4 % (<5.7)
[2023-03-15 15:21] LABS: Creatine Kinase 197 U/L (39-308)
== END 2023-03-15 14:20 | disposition home or self-care (01) ==
LOC: NCHCN 14:19
PROVIDERS: PCP Nurse Practitioner Family; Visit Provider Nurse Practitioner Family
DX: R73.03 Prediabetes (principal); Z13.89 Encounter for screening for other disorder
CPT/HCPCS: 82550; 82565; 83036

== ENCOUNTER 2023-06-29 14:00 | Emergency (ER) | payer OTHER, SELFPAY ==
[2023-06-29] VITALS (24 sets, daily range): BP systolic 118–182; BP diastolic 81–105; PULSE 57–68; RESP 0–26; TEMP 36.5; O2SAT 90–97
--- NOTE | 2023-06-29 14:00 | RT.EKG_ITS ---
APPROVED REPORT Exam: Resting ECG Reason for Exam: chest pain Patient Location: E HR:65 bpm ECG Measurements Heart Rate 65 AXIS PA 183 P 20 QRSd 100 QRS -74 QT 397 T 6 QTc 414 Conclusion Sinus rhythm 65 normal axis no stemi
[2023-06-29 14:23] LABS: Abs Immature Grans 0.03 10^3/uL (0.0-0.06); Absolute Basophil Count 0.06 10^3/uL (0.0-0.2); Absolute Eosinophil Count 0.22 10^3/uL (0.0-0.7); Absolute Lymphocyte Count 1.72 10^3/uL (1.2-3.4); Absolute Neutrophil Count 7.09 10^3/uL (1.2-6.7); Basophils % 0.6 %; Eosinophils % 2.2 %; HCT 48.6 % (40.0-50.0); HGB 16.2 g/dL (13.5-17.5); Immature Grans % 0.3 %; MCH 30.2 pg (27.0-33.0); MCHC 33.3 % (32.0-36.0); MCV 91 fL (80-95); MPV 10.4 fL (8.0-11.0); Monocytes % 9.9 %; Platelet Count 200 10^3/uL (130-400); RBC 5.37 10^6/uL (4.36-5.78); RDW 14.9 % (11.8-14.1); RDW-SD 49.7 fL; WBC 10.12 10^3/uL (4.4-10.8)
[2023-06-29] MEDS: Normal Saline Flush 10 ML SYR IVP (14:36)
[2023-06-29 14:48] LABS: ALT 51 U/L (16-63); AST 39 U/L (15-37); Albumin 4.1 g/dL (3.4-5.0); Alkaline Phosphatase 193 U/L (46-116); Anion Gap 12.5 mmol/L (3-11); BUN 16 mg/dL (7-18); Bilirubin, Total 0.8 mg/dL (0.2-1.0); CO2 24.5 mmol/L (21.0-32.0); CREATININE 1.1 mg/dL (0.70-1.30); Calcium 9.6 mg/dL (8.5-10.1); Chloride 104 mmol/L (98-107); Estimated GFR 69.14 (mL/min/1.73m2); Glucose 170 mg/dL (74-106); Lipase 58 U/L (16-77); NT-proBNP 88 pg/mL (<300); Potassium 3.8 mmol/L (3.5-5.1); Sodium 141 mmol/L (136-145); Total Protein 8.3 g/dL (6.4-8.2); Troponin I < 50 ng/L (< or =60)
[2023-06-29] MEDS: Normal Saline - Diluent 50 ML VIAL IJ (15:02)
[2023-06-29] MEDS: Omnipaque 350 MG/ML 500 ML BTL-Imaging package 100 ML IJ (15:08)
--- NOTE | 2023-06-29 15:21 | DI.CT_ITS ---
Exam(s) CT THORAX ABDOMEN CTA EXAM: CT THORAX ABDOMEN CTA CLINICAL HISTORY: chest / abd pain, known aneurysm. TECHNIQUE: Imaging Protocol: Axial CT angiography was performed with multi-slice acquisition and mu lti-planar and/or 3D reconstructions. CONTRAST MATERIAL: Intravenous: Omnipaque 350 Contrast volume:100 ml COMPARISON: CT ABD PELVIS WITH CONTRAST from 08/06/[address] HEAD CERVICAL SPINE WO from 05/20/[address] thoracic lumbar spine wo from 05/20/2018 CR XR RIBS LT W PA LAT CHEST from 10/28/[address] ABDOMEN PELVIS W from 04/03/2023 FINDINGS: CHEST: Pulmonary Arteries: No evidence of filling defects to suggest pulmonary emboli. Tracheobronchial tree: No bronchiectasis or mucus plugging. Mediastinum and Beatrice: No dominant adenopathy or fluid collection. Moderate size hiatal hernia. Pulmonary parenchyma: No consolidation or dominant measurable mass. Pleura: No effusion. No pneumothorax. Heart: The heart is notdilated. Moderate coronary artery calcifications are seen. Aorta: Ascending aorta measures 4.8 cm. Atherosclerotic calcifications. No evidence of dissection. Aortic branch vessels: Celiac artery shows a focal area of dilatation and atherosclerotic changes. Th ere is no significant stenosis. The distal branches are patent. The SMA shows scattered calcification s along the main trunk. The left renal artery shows approximately 50 percent stenosis. The right fidelia al artery is unremarkable. Bones: Abnormal sclerosis within the T5 and T6 vertebral bodies is extending into posterior elements. Findings were not present on the prior exam. No additional suspicious bony lesions are identified. M ild compression of T11 appears old. Tubes, Catheters, and Lines: None. Soft tissues: Unremarkable. ABDOMEN : Liver: Normal size. Normal density. No suspicious measurable mass. Portal, Superior Mesenteric, and Splenic Veins: Unremarkable. Gallbladder and Biliary Tract: No radiodense calculus. No biliary dilatation. Pancreas: Normal density, no abnormal calcifications or inflammatory process. Spleen: Normal. Adrenals: No masses seen. Kidneys: Normal size, contour and axis. No radiodense stones. No obstructive uropathy. No masses seen . Vasculature: Distal aortoiliac stent noted. No change in appearance. No evidence of leak. No payton e in size of [place] aneurysm. Bowel: No obstruction or bowel wall thickening. Appendix is unremarkable. Peritoneal Cavity: No ascites, collection or mesenteric inflammatory response. Lymph Nodes: Within normal limits. Soft Tissues: Unremarkable. Bones: Degenerative changes. No lytic or blastic lesions. IMPRESSION: 1. No evidence of pulmonary embolism or aortic dissection. Stable dilatation of ascending thoracic ao rta. 2. No acute abdominal or pelvic process. Stable appearance of abdominal aortic aneurysm and aorta bi- iliac graft. 3. Abnormal sclerotic density noted in the T5 and T6 vertebral bodies and posterior elements. Finding s could represent metastatic prostate CA. Clinical correlation recommended. 4. Findings called to Dr. Patel of the emergency department. RADIATION DOSE DELIVERED: 1,038.47mGy.cm Total DLP 1,038.47mGy.cm Total DLP DATA REPOSITORY: All CT scans at this facility are submitted to the National Radiology Data Registry (NRDR) Dose Index Registry (DIR) with the [employer] (ACR). RADIATION OPTIMIZATION: All CT scans at this facility use at least one of these dose optimization te chniques: automated exposure control; mA and/or kV adjustment per patient size (includes targeted exa ms where dose is matched to clinical indication); or iterative reconstruction.
--- NOTE | 2023-06-29 20:12 | W.ED.GENAD ---
Discharge Plan Disposition Patient Disposition: Home Condition: Stable Discharge Details Clinical Impression: Lesion of vertebra, Pain Primary Care Provider: Maria Esther Haynes ED Provider: Hafsa Patel Home Meds and New Rx's Prescriptions: No Action efmmlunr-zwa-tlczb-[id number] [Ovlrwt-Rgnoi-BEE (with antiox)] 500-500-66.7 mg tablet 1 tab PO BID (DME) lancets [FreeStyle Lancets] 28 gauge misc 1 ea Miscellaneous DAILY Qty: 100 1RF Rx Instructions: E11.9 to maintain A1C less than 7 (DME) FreeStyle Lite Strips Strip 1 ea Miscellaneous DAILY Qty: 100 3RF Rx Instructions: E11.9 to maintain A1C less than 7 aspirin 81 mg tablet,delayed release (DR/EC) 81 mg PO DAILY ropinirole 2 mg tablet 2 mg PO QHS acetylcysteine [NAC] 600 mg capsule 1,200 mg PO BID metoprolol tartrate 50 mg tablet 50 mg PO DAILY multivitamin Tablet 1 tab PO DAILY memantine 10 mg tablet 10 mg PO BID Qty: 180 3RF metformin 750 mg tablet extended release 24 hr 750 mg PO HS Qty: 90 3RF albuterol sulfate [ProAir HFA] 90 mcg/actuation HFA aerosol inhaler 2 puff Inhalation Q6H PRN Qty: 3 1RF pseudoephedrine HCl [Sudafed] 30 mg tablet 60 mg PO PRN PRN amlodipine 10 mg tablet 10 mg PO DAILY bupropion HCl 100 mg tablet 200 mg PO BID fluoxetine 20 mg capsule 40 mg PO DAILY PreserVision AREDS-2 250-90-40-1 mg capsule 2 tab PO DAILY donepezil 5 mg tablet 5 mg PO QHS Qty: 90 3RF atorvastatin 80 mg tablet 80 mg PO QHS Qty: 90 1RF diphenhydramine HCl 25 mg capsule 25 mg PO HS irbesartan [Avapro] 300 mg tablet 300 mg PO DAILY nystatin [Nystop] 100,000 unit/gram powder 1 pwd TOPICAL DAILY omeprazole 40 mg capsule,delayed release(DR/EC) 40 mg PO HS Safron Lift PO DAILY celecoxib 200 mg capsule 200 mg PO BID PRN (Reason: pain) Qty: 60 1RF acetaminophen [Acetaminophen Extra Strength] 500 mg tablet 1,000 mg PO TID Qty: 90 0RF Discharge Instructions Additional Instructions: PSA test to screen prostate has been sent. your PCP will need to follow up on this test to determine next steps. an MRI has been ordered to further evaluate spine findings and possible causes of your pain please continue gabapentin and follow up with PCP Discharge Data Discharge Date/Time-TO BE ENTERED AT DEPARTURE: 06/29/23 16:26 HPI General Date/Time Provider Initiated Documentation: 06/29/23 14:15. Limitations to Documentation: no limitations. Information obtained by: patient and family. HPI Narrative: 78-year-old gentleman with past medical history of depression, diabetes, CHF, aortic aneurysm status postrepair, Alzheimer's disease presents for evaluation of pain. He reports for the last 5 months he has been having intermittent severe pain. It occurs when he is changing positions or trying to move. Pain resolved spontaneously. He states that sometimes it so bad he has difficulty getting out of a chair. He does not have any pain if he is still. He saw his primary care doctor about it and was started on gabapentin which is not really helping the symptoms. The reports that about a week ago it started getting worse and has progressively worsened. They report that it is more severe when he does have pain and that the episodes are occurring more frequently. Related Data Home Medications Medication Instructions Recorded Confirmed qrxgpybjwfp-lhw-eqzsjwmun-hrb 1 tab PO BID 07/02/18 06/29/23 149-hyalur 500 mg-500 mg-66.7 mg tablet (Cxvnsphweup-Xxpjbsixycf-OGR (with antiox)) diphenhydramine HCl 25 mg capsule 25 mg PO HS 12/26/18 06/29/23 ropinirole 2 mg tablet 2 mg PO QHS 12/26/18 06/21/23 blood sugar diagnostic (FreeStyle #100 strips 04/30/19 11/30/22 Lite Strips) lancets 28 gauge (FreeStyle #100 ea 04/30/19 11/30/22 Lancets) irbesartan 300 mg tablet (Avapro) 300 mg PO DAILY 09/19/19 06/29/23 metformin 750 mg tablet,extended 750 mg PO HS diabetes #90 tabs 11/25/19 06/29/23 release 24 hr albuterol sulfate 90 mcg/actuation 2 puff inhalation Q6H PRN ##3 11/03/20 05/10/24 aerosol inhaler (ProAir HFA) pseudoephedrine HCl 30 mg tablet 60 mg PO PRN PRN 07/22/20 06/21/23 (Sudafed) acetylcysteine 600 mg capsule (NAC) 1,200 mg PO BID 04/20/21 06/29/23 amlodipine 10 mg tablet 10 mg PO DAILY 05/24/21 06/29/23 bupropion HCl 100 mg tablet 200 mg PO BID 05/24/21 06/29/23 metoprolol tartrate 50 mg tablet 50 mg PO DAILY 06/20/21 06/29/23 nystatin 100,000 unit/gram topical 1 pwd topical DAILY 07/27/21 06/29/23 powder (Nystop) omeprazole 40 mg capsule,delayed 40 mg PO HS 07/27/21 06/21/23 release multivitamin 1 tab PO DAILY 08/23/21 06/29/23 fluoxetine 20 mg capsule 40 mg PO DAILY 02/21/22 06/29/23 vit C 250 mg-vit E 90 mg-zinc 40 2 tab PO DAILY 05/30/22 06/21/23 mg-copper 1 lp-thycyc-ymgjrb capsule (PreserVision AREDS-2) Safron Lift PO DAILY 08/14/22 06/21/23 acetaminophen 500 mg tablet 1,000 mg (2 x 500 mg) PO TID #90 08/15/22 06/29/23 (Acetaminophen Extra Strength) tabs celecoxib 200 mg capsule 200 mg PO BID PRN pain #60 caps 08/15/22 06/29/23 donepezil 5 mg tablet 5 mg PO QHS #90 tabs 10/10/22 06/29/23 aspirin 81 mg tablet,delayed 81 mg PO DAILY 11/30/22 06/29/23 release atorvastatin 80 mg tablet 80 mg PO QHS #90 tabs 03/12/23 06/29/23 memantine 10 mg tablet 10 mg PO BID #180 tabs 06/21/23 06/29/23 Previous Rx's Medication Instructions Recorded blood sugar diagnostic (FreeStyle #100 strips 04/30/19 Lite Strips) lancets 28 gauge (FreeStyle #100 ea 04/30/19 Lancets) metformin 750 mg tablet,extended 750 mg PO HS diabetes #90 tabs 11/25/19 release 24 hr albuterol sulfate 90 mcg/actuation 2 puff inhalation Q6H PRN ##3 12/23/19 aerosol inhaler (ProAir HFA) acetaminophen 500 mg tablet 1,000 mg (2 x 500 mg) PO TID #90 08/15/22 (Acetaminophen Extra Strength) tabs celecoxib 200 mg capsule 200 mg PO BID PRN pain #60 caps 08/15/22 donepezil 5 mg tablet 5 mg PO QHS #90 tabs 10/10/22 atorvastatin 80 mg tablet 80 mg PO QHS #90 tabs 03/12/23 memantine 10 mg tablet 10 mg PO BID #180 tabs 06/21/23 Allergies Allergy/AdvReac Type Severity Reaction Status Date / Time codeine AdvReac Intermediate N/V Verified 06/29/23 14:09 lisinopril AdvReac cough Verified 06/29/23 14:09 General Stated Complaint: Chest Pain SUHAS: 2 Exam Narrative Exam Narrative: Review of Systems: All systems reviewed & are unremarkable except as noted in HPI and below Well-developed, no acute distress NCAT PERRL, normal conjunctiva RRR no murmur Unlabored respiratory effort clear bilaterally, Nondistended abdomen , nontender Extremities w/o deformity, no cyanosis, no edema No rashes or lesions. no focal neurologic deficits Appropriate mood and affect Course Vital Signs Vital signs: Vital Signs Temperature 36.5 C 06/29/23 14:03 Pulse 65 06/29/23 14:03 Respiratory Rate 26 H 06/29/23 14:03 Blood Pressure 154/100 H 06/29/23 14:03 Pulse Oximetry 97 06/29/23 14:03 Temperature 36.5 C 06/29/23 16:26 Temperature Source Skin 06/29/23 14:03 Pulse 57 L 06/29/23 16:26 Pulse 60 06/29/23 16:10 Respiratory Rate 21 06/29/23 16:26 Respiratory Effort Normal 06/29/23 14:26 Respiratory Depth Normal 06/29/23 14:26 Respiratory Pattern Normal 06/29/23 14:26 Blood Pressure 152/95 H 06/29/23 16:26 Blood Pressure Mean 112 06/29/23 16:01 Blood Pressure Position Sitting 06/29/23 14:03 Pulse Oximetry 90 L 06/29/23 16:26 Oxygen Delivery Method Room Air 06/29/23 14:03 Oxygen Flow Rate 0 06/29/23 14:03 Pain Level 0 06/29/23 14:26 Lab/Test Results Lab/Test Results: Laboratory Tests Range/Units 06/29/23 14:16 WBC (4.4-10.8) 10^3/uL 10.12 RBC (4.36-5.78) 10^6/uL 5.37 Hgb (13.5-17.5) g/dL 16.2 Hct (40.0-50.0) % 48.6 MCV (80-95) fL 91 MCH (27.0-33.0) pg 30.2 MCHC (32.0-36.0) % 33.3 RDW (11.8-14.1) % 14.9 H Plt Count (130-400) 10^3/uL 200 MPV (8.0-11.0) fL 10.4 Immature Gran % % 0.3 Neutrophils % % 70.0 Lymphocytes % % 17.0 Monocytes % % 9.9 Eosinophils % % 2.2 Basophils % % 0.6 Nucleated RBC % (0.0-0.3) % 0.0 Absolute Neutrophils (1.2-6.7) 10^3/uL 7.09 H Absolute Lymphocytes (1.2-3.4) 10^3/uL 1.72 Absolute Monocytes (0.1-0.8) 10^3/uL 1.00 H Absolute Eosinophils (0.0-0.7) 10^3/uL 0.22 Absolute Basophils (0.0-0.2) 10^3/uL 0.06 VBG Lactate (0.6-1.4) mmol/L 2.0 H Sodium (136-145) mmol/L 141 Potassium (3.5-5.1) mmol/L 3.8 Chloride (98-107) mmol/L 104 Carbon Dioxide (21.0-32.0) mmol/L 24.5 Anion Gap (3-11) mmol/L 12.5 H BUN (7-18) mg/dL 16 Creatinine (0.70-1.30) mg/dL 1.1 Est GFR (CKD-EPI 2020) (mL/min/1.73m2) 69.14 Glucose (74-106) mg/dL 170 H Calcium (8.5-10.1) mg/dL 9.6 Magnesium (1.8-2.4) mg/dL 2.0 Total Bilirubin (0.2-1.0) mg/dL 0.8 AST (15-37) U/L 39 H ALT (16-63) U/L 51 Alkaline Phosphatase (46-116) U/L 193 H Troponin I (< or =60) ng/L < 50 NT-Pro-B Natriuret Pep (<300) pg/mL 88 Total Protein (6.4-8.2) g/dL 8.3 H Albumin (3.4-5.0) g/dL 4.1 Lipase (16-77) U/L 58 Medical Decision Making Emergent evaluation of pain. Patient is not currently having symptoms, but will have symptoms occur if he moves. These have been ongoing for several months but seem to be worsening. This type of pain does not seem to be cardiac in nature. Consider possible mesenteric ischemia. Renal stone. Pancreatitis. Examination is benign at this time. The patient does have a aortic aneurysm repair and I reviewed the medical record and noted that he did have a prior endoleak. I will reevaluate his aorta today to make sure that this is not worsening and that this is not a cause of his pain. Lab work reviewed. There is no leukocytosis or significant anemia. Slight anion gap. No change and renal function. Lactic acid is only slightly elevated. But the patient is on metformin and I suspect this is the source of his lactic acidosis and anion gap. This is supported by no evidence of mesenteric ischemia on his CT imaging. I discussed the CT imaging with the radiologist. There is concern for some sclerotic lesions in the spine and this may be consistent with metastatic disease. Patient has no history of cancer. Patient is unsure if he has ever had evaluation of his prostate, I will send a PSA screening test. I have also ordered an outpatient MRI with and without contrast to evaluate the spine. I have advised the patient and his to follow-up closely with primary care after these tests have been performed. Patient may need further evaluation if the PSA is abnormal this can be done as an outpatient. Recommend continue to take the gabapentin and increase as instructed by PCP Medical Records Medical records reviewed: Yes I reviewed the patient's medical records. Lab Data Lab results reviewed: Yes I reviewed the patient's lab results. Quality:SDOH Health Related Social Needs: No Data to Display PFSH All Active Problems Pain (Acute) Lesion of vertebra (Acute) Abdominal aortic aneurysm (AAA) >39 mm diameter (Acute 01/05/17) 42cm -201606/25/17 4.4 cm distal abdominal aortic aneurysm 4.20 cm 05/14/18 4.50 cm 12/12/18 4.60x4.50 cm 06/12/19 4.60x4.60 cm repeat 1 yr Depressive disorder, not elsewhere classified (Chronic 05/21/12) Diaphragmatic hernia (Acute 05/21/12) Diverticulosis of colon (without mention of hemorrhage) (Acute 05/21/12) Decreased cardiac ejection fraction (Acute 02/07/17) Diabetes mellitus (Acute 05/31/16) Gastroesophageal reflux disease without esophagitis (Acute 05/21/12) Obesity, unspecified (Acute 08/03/11) Osteoarthritis of first metatarsophalangeal joint (Acute 11/04/14) Osteoarthritis of right knee (Acute 12/24/14) Dr[facility] 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 (Chronic) Vertebral artery occlusion (Acute) Gait disorder (Acute) Alzheimer's dementia (Acute) Trigger finger, right index finger (Acute) Trigger finger, left index finger (Acute) History of total right hip replacement (Acute 08/15/22) Muscle spasm of right lower extremity (Acute) Pain in hip region after hip replacement (Acute) Periprosthetic fracture around internal prosthetic right hip joint (Acute) Closed fracture of anterior column of right acetabulum (Acute) Vascular dementia (Acute) Bradycardia (Acute) Medical History Macular degeneration of left eye Detached retina Sleep apnea Hyperlipidemia Hypertension Intermittent asthma Hiatal hernia Depressive disorder GERD (gastroesophageal reflux disease) Type 2 diabetes mellitus Low left ventricular ejection fraction Ascending aortic aneurysm Hx of fall April 2018, fall off ladder, fractures cervical and T5; no surgery, brace worn Aneurysm Macular degeneration Colon cancer screening Pre-op evaluation Laceration of left thumb (11/16/18) Compression fracture C7 lamina fx, T1 anterosuperior corner fx, and T4 compression fx. Suspicion of three column injury. [facility] [place] summary (05/20/18-05/27/18). AAA (abdominal aortic aneurysm) 4.6cm in 2020, follow up in 1 year Obstructive sleep apnea (adult) (pediatric) (05/21/12) [facility] -Beverly Maldonado Essential hypertension (11/22/12) Surgical History S/P trigger finger release early [place] [facility] [place] Hx of scagh-znqpl-hxqxusi bypass stent 06/06/21 Hx of aortic aneurysm repair stents, 04/25/21 S/P vasectomy S/P right knee arthroscopy S/P cataract surgery bilateral S/P left inguinal hernia repair (~2018) x2 Tonsillectomy and adenoidectomy Great toe implant (12/01/14) Jason Aviles Family History Mother Substance abuse Diabetes Essential hypertension Hyperlipidemia Skin cancer FH: ovarian cancer Alcohol abuse Sister Neoplasm lung Ca with Mets Macular degeneration Father Alcohol abuse Depression Social History Smoking/Tobacco Use Status: Former Tobacco Use Smoking risk assessment performed?: Yes Alcohol Intake: current Alcohol Intake frequency: a few times a month Alcohol type: beer and hard liquor Drug use: Never Substance use type: does not use Household members: spouse Housing: house Number of Children: 3 number of grandchildren: 9 Communication Needs: Corrective Lenses current occupation: retired Pets and animals: Yes Pets and animals: cat(s) Current gender identity: male What is your relationship status?: Panel score (0-1 are the most socially isolated patients): 1 What type of physical activity do you participate in: additional Details: Pt exercise group Seatbelt use: always Drive intox or ride w/intox commercial front load driver: No Working smoke detector in home: Yes Fire extinguisher in home: Yes Carbon monox detector in home: Yes
== END 2023-06-29 16:26 | disposition home or self-care (01) ==
PROVIDERS: Emergency Provider Emergency Medicine; PCP Nurse Practitioner Family
DX: M54.50 Low back pain, unspecified (principal); M48.8X6 Other specified spondylopathies, lumbar region; I11.0 Hypertensive heart disease with heart failure; I50.9 Heart failure, unspecified; E78.5 Hyperlipidemia, unspecified; G30.9 Alzheimer's disease, unspecified; E11.9 Type 2 diabetes mellitus without complications; Z79.82 Long term (current) use of aspirin; Z79.84 Long term (current) use of oral hypoglycemic drugs; Z87.891 Personal history of nicotine dependence
CPT/HCPCS: 36415; 71275; 74175; 80053; 83690; 84153; 93005; 99285; 83605; 83735; 83880; 84484; 85025; 93010; 99284

== ENCOUNTER 2023-07-03 15:40 | Outpatient (CLI) | payer OTHER, SELFPAY ==
--- NOTE | 2023-07-03 14:30 | DI.RAD_ITS ---
Exam(s) XR HAND LT COMPLETE EXAM: XR HAND LT COMPLETE CLINICAL HISTORY: LEFT THUMB PAIN. TECHNIQUE: 2D digital imaging was performed. COMPARISON: No exams were available for comparison FINDINGS: 3 views No evidence of acute fracture or dislocation. There are advanced degenerative changes at the 1st car pometacarpal joint, this being the articulation between the thumb metacarpal and trapezium. No obvio us degenerative changes in the other articulations of the thumb. Some degenerative change noted at t he DIP joint of the 5th finger. Metacarpophalangeal joints appear unremarkable. No erosions. IMPRESSION: Advanced degenerative changes at the 1st carpometacarpal joint, this being the articulation between t he thumb metacarpal and the trapezium bone of the distal carpal row. DATA REPOSITORY: RADIATION DOSE DELIVERED:
== END 2023-07-03 15:41 | disposition home or self-care (01) ==
LOC: DIORS 15:41
PROVIDERS: PCP Nurse Practitioner Family; Visit Provider Student in an Organized Health Care Education/Training Program
DX: M79.645 Pain in left finger(s) (principal)
CPT/HCPCS: 73130

== ENCOUNTER 2023-07-20 13:07 | Outpatient (REF) | payer OTHER, SELFPAY ==
--- NOTE | 2023-07-20 13:20 | PROST_PTH ---
PATIENT: Chon Blake LOC: [facility] U#:[id number] AGE/SX: 78/M ROOM: RE07/20/[address]: Erick Olivas MD : [id number] BED: DIS: 07/20/2023 SPEC #: [id number] RECD: 07/20/23 16:28 STATUS: FARZANA REVíctor #: [id number] LEANDER: 07/20/23 13:[address]: Erick Olivas DEPT: Surgical Specimen RECD BY: Ashley Neff ENTERED: 07/20/23 16:29 SP TYPE: PROST OTHR DR: Maria Esther Haynes Tissues: 1 - PROSTATE NEEDLE BIOPSY 2 - PROSTATE NEEDLE BIOPSY 3 - PROSTATE NEEDLE BIOPSY 4 - PROSTATE NEEDLE BIOPSY 5 - PROSTATE NEEDLE BIOPSY 6 - PROSTATE NEEDLE BIOPSY 7 - PROSTATE NEEDLE BIOPSY 8 - PROSTATE NEEDLE BIOPSY 9 - PROSTATE NEEDLE BIOPSY 10 - PROSTATE NEEDLE BIOPSY 11 - PROSTATE NEEDLE BIOPSY 12 - PROSTATE NEEDLE BIOPSY Procedures: GROSS AND MICRO LEVEL 4 IMMUNOPEROXIDASE STAIN Comments: [id number]
== END 2023-07-20 13:08 | disposition home or self-care (01) ==
LOC: LBN 13:07
PROVIDERS: PCP Nurse Practitioner Family; Visit Provider Urology
DX: R97.20 Elevated prostate specific antigen [PSA] (principal); N42.9 Disorder of prostate, unspecified
CPT/HCPCS: 88305; 88361

== ENCOUNTER 2023-07-23 16:08 | Emergency (ER) | payer OTHER, SELFPAY ==
[2023-07-23] VITALS (43 sets, daily range): BP systolic 152–226; BP diastolic 71–123; PULSE 62–74; RESP 10–22; TEMP 37.4; O2SAT 89–96
--- NOTE | 2023-07-23 16:00 | RT.EKG_ITS ---
APPROVED REPORT Exam: Resting ECG Reason for Exam: CHEST PAIN Patient Location: E HR:66 bpm ECG Measurements Heart Rate 66 AXIS UT 202 P 46 QRSd 103 QRS -60 QT 411 T 39 QTc 432 Conclusion Sinus rhythm...normal P axis, V-rate 60- 99 Left anterior fascicular block...axis(240,-40), init forces inf Consider anterior infarct...Q >30mS in V2-V5
[2023-07-23 16:37] LABS: Abs Immature Grans 0.04 10^3/uL (0.0-0.06); Absolute Basophil Count 0.05 10^3/uL (0.0-0.2); Absolute Eosinophil Count 0.29 10^3/uL (0.0-0.7); Absolute Lymphocyte Count 1.62 10^3/uL (1.2-3.4); Absolute Monocyte Count 0.99 10^3/uL (0.1-0.8); Basophils % 0.5 %; Eosinophils % 2.9 %; HCT 47.7 % (40.0-50.0); HGB 15.8 g/dL (13.5-17.5); Immature Grans % 0.4 %; Lymphocytes % 16.4 %; MCH 30.4 pg (27.0-33.0); MCHC 33.1 % (32.0-36.0); MCV 92 fL (80-95); Neutrophils % 69.8 %; Platelet Count 181 10^3/uL (130-400); RDW 14.3 % (11.8-14.1); RDW-SD 48.3 fL; WBC 9.89 10^3/uL (4.4-10.8)
[2023-07-23] MEDS: Normal Saline - Diluent 50 ML VIAL IJ (16:48)
[2023-07-23] MEDS: Omnipaque 350 MG/ML 100 ML BTL IJ (16:49)
[2023-07-23 16:57] LABS: ALT 57 U/L (16-63); AST 40 U/L (15-37); Albumin 4.2 g/dL (3.4-5.0); Alkaline Phosphatase 208 U/L (46-116); Anion Gap 12.1 mmol/L (3-11); BUN 22 mg/dL (7-18); Bilirubin, Total 0.7 mg/dL (0.2-1.0); CO2 25.9 mmol/L (21.0-32.0); Calcium 9.9 mg/dL (8.5-10.1); Chloride 101 mmol/L (98-107); Estimated GFR 77.52 (mL/min/1.73m2); Glucose 158 mg/dL (74-106); Lipase 54 U/L (16-77); Magnesium 1.8 mg/dL (1.8-2.4); Potassium 3.3 mmol/L (3.5-5.1); Sodium 139 mmol/L (136-145); Total Protein 8.3 g/dL (6.4-8.2); Troponin I < 50 ng/L (< or =60)
[2023-07-23] MEDS: MORPHine 10 MG/ML VIAL 2 MG IVP (17:04)
[2023-07-23 17:35] LABS: Bilirubin Negative (Negative); Blood Moderate (Negative); Clarity Clear (Clear); Glucose Negative (Negative); Ketones Trace mg/dL (Negative); Leukocyte Esterase Negative (Negative); Nitrite Negative (Negative); Specific Gravity 1.025 (1.005-1.025); Urobilinogen 0.2 mg/dL (Up to 0.2)
--- NOTE | 2023-07-23 17:45 | RT.EKG_ITS ---
APPROVED REPORT Exam: Resting ECG Reason for Exam: chest pain Patient Location: E HR:68 bpm ECG Measurements Heart Rate 68 AXIS NE 200 P 61 QRSd 106 QRS -59 QT 431 T 26 QTc 459 Conclusion Sinus rhythm...normal P axis, V-rate 60- 99 Ventricular premature complex...V complex w/ short R-R interval Left anterior fascicular block...axis(240,-40), init forces inf
[2023-07-23 17:52] LABS: Bacteria Rare HPF (Negative); Epithelial Cells Rare HPF (Negative); RBC >50 HPF (0-2); WBC 0-2 HPF (0-5)
[2023-07-23 17:53] LABS: C & S Indicated? No; Casts 0-2 Hyaline LPF (Negative); Crystals Negative HPF (Negative); Mucus Negative (Negative)
--- NOTE | 2023-07-23 17:54 | DI.CT_ITS ---
Exam(s) CT HEAD CERVICAL SPINE WO EXAM: CT HEAD CERVICAL SPINE WO CLINICAL HISTORY: fall, [place]. TECHNIQUE: Imaging Protocol: Axial computed tomography images with coronal and sagittal reformatted images were created and reviewed COMPARISON: CT CT HEAD WO CONTRAST (GENERIC) from 05/22/2018 FINDINGS: BRAIN: There are no skull fractures nor fluid in the visualized paranasal sinuses. There is no evidence of intracranial hemorrhage, mass effect, or shift of midline structures. There are no extra-axial fluid collections. The ventricles are not enlarged or shifted and there is no blo od within the ventricular system nor within the basal cisterns. Vascular calcifications the skull base is again noted in bulging vertebral arteries. Mild symmetrica l periventricular hypodensity consistent with chronic small vessel disease again noted. CERVICAL SPINE: There is no evidence of fracture nor listhesis. No significant prevertebral soft tissue swelling. Moderate chronic disc space narrowing at C 5-6 is noted. There also small bilateral Luschka joint os teophytes at this level noted. Moderate facet arthropathy noted. There is no facet malalignment. No significant osseous lesions evident. IMPRESSION: No acute intracranial findings on this noninfused CT scan of the brain.Periventricular hypodensity co nsistent with chronic small vessel disease again noted. No evidence of cervical spine fracture, malalignment, nor acute compromise of the cervical spinal can al. Called by myself to ER provider RADIATION DOSE DELIVERED: 1,511.06mGy.cm Total DLP DATA REPOSITORY: All CT scans at this facility are submitted to the National Radiology Data Registry (NRDR) Dose Index Registry (DIR) with the [employer] (ACR). RADIATION OPTIMIZATION: All CT scans at this facility use at least one of these dose optimization te chniques: automated exposure control; mA and/or kV adjustment per patient size (includes targeted exa ms where dose is matched to clinical indication); or iterative reconstruction.
--- NOTE | 2023-07-23 17:54 | DI.CT_ITS ---
Exam(s) CT THORAX ABDOMEN CTA EXAM: CT THORAX ABDOMEN CTA CLINICAL HISTORY: hx of aneurysm with repair, pain central chest. TECHNIQUE: Imaging Protocol: Axial computed tomography images with coronal and sagittal reformatted images were created and reviewed CONTRAST MATERIAL: Intravenous: Omnipaque 350 Contrast volume:100 ml Oral: None COMPARISON: CT CT THORAX ABDOMEN CTA from 06/29/2023 FINDINGS: CHEST: Moderate-large hiatal hernia again evident. LUNGS: No infiltrates nor lung contusion or pleural effusions. No pneumothorax.. MEDIASTINUM: There is no hilar nor mediastinal adenopathy. Visualized thyroid unremarkable. CARDIAC: Heart size upper normal. No pericardial effusion. AORTA: The diameter of the ascending thoracic aorta is enlarged, measuring 5 cm. There is, however, no evidence of dissection. The diameter of the descending thoracic aorta is also moderately prominen t. ABDOMEN: Abdominal aortic EVAR again noted. Maximum diameter of the makah aortic sac is 6 cm, unchanged. Th ere is an aortic endoleak again noted. Appears similar to 06/29/2023. No evidence of dissection. There is no ascites. LIVER: There are no focal hepatic lesions nor dilatation of intrahepatic ducts. GALLBLADDER/BILIARY: Gallbladder somewhat distended. Otherwise unremarkable. CBD is not dilated. PANCREAS: No evidence of pancreatic mass nor dilatation of the pancreatic duct. SPLEEN: Spleen is not enlarged. There are no intrasplenic lesions. ADRENALS: There are no significant adrenal masses. KIDNEYS: Left kidney unremarkable. A few cysts in the right kidney are again noted. The largest navya sures 3.5 cm. These do not require follow-up. No calculi nor hydronephrosis. No solid renal masses. ABDOMINAL AORTA: See above LYMPH NODES: There is no retroperitoneal nor para-aortic adenopathy. No obvious mesenteric masses. ABDOMINAL WALL: Small fat only containing anterior abdominal wall umbilical hernia noted. GI: There is no evidence of bowel obstruction, free air, nor abscess. PELVIS: LYMPH NODES: There is no intrapelvic nor inguinal adenopathy. GI: No evidence of appendicitis. URINARY BLADDER: Not included REPRODUCTIVE: Prostate not included in the field of view. OSSEOUS: Sclerosis in the body and posterior elements again noted at T6 and T7 levels. Possibly repr esenting blastic metastases. There is no compression fracture at these levels. No retropulsed kimberly x. There is, however, an element of central spinal canal stenosis at this level due to expansion of the pedicles at this level IMPRESSION: 1. The diameter of the ascending thoracic aorta is enlarged, measuring 5 cm. However, there is no ev idence of aortic dissection. 2. There is an abdominal aortic EVAR which again exhibits evidence of an endoleak and the makah aort ic sac again measures 6 cm. Requires re-evaluation by vascular surgery. 3. Spinal canal stenosis noted at T6-T7 level which appears to be related to encroachment upon the ca nal by sclerotic disease in both anterior and posterior ostial elements of these vertebral bodies whi ch may be metastatic given the appearance.. There is no loss of height of these vertebral bodies. 4. No other osseous sclerosis noted in the thoracic and lumbar spinal columns. Discussed with ER provider RADIATION DOSE DELIVERED: 1,105.37mGy.cm Total DLP DATA REPOSITORY: All CT scans at this facility are submitted to the National Radiology Data Registry (NRDR) Dose Index Registry (DIR) with the [employer] (ACR). RADIATION OPTIMIZATION: All CT scans at this facility use at least one of these dose optimization te chniques: automated exposure control; mA and/or kV adjustment per patient size (includes targeted exa ms where dose is matched to clinical indication); or iterative reconstruction.
[2023-07-23] MEDS: MORPHine 4 MG/ML SYR IVP (18:24)
[2023-07-23] MEDS: HYDROmorphone 2 MG/ML SYR 1 MG IVP (18:35)
[2023-07-23] MEDS: Normal Saline 500 ML IV (18:35)
[2023-07-23 19:26] LABS: Troponin I < 50 ng/L (< or =60)
--- NOTE | 2023-07-23 22:43 | ED.GENADUL_ITS ---
Discharge Plan Disposition Patient Disposition: Home Condition: Stable Discharge Details Clinical Impression: Atypical chest pain, Fall Primary Care Provider: Maria Esther Haynes ED Provider: Ashley Benítez Home Meds and New Rx's Prescriptions: New oxycodone 5 mg capsule 5 mg PO BID PRNQty: 6 0RF Continued akunwjka-pvo-[id number] [Fhkouz-Dxhcz-DBS (with antiox)] 500-500-66.7 mg tablet 1 tab PO BID (DME) lancets [FreeStyle Lancets] 28 gauge misc 1 ea Miscellaneous DAILY Qty: 100 1RF Rx Instructions: E11.9 to maintain A1C less than 7 (DME) FreeStyle Lite Strips Strip 1 ea Miscellaneous DAILY Qty: 100 3RF Rx Instructions: E11.9 to maintain A1C less than 7 aspirin 81 mg tablet,delayed release (DR/EC) 81 mg PO DAILY ropinirole 2 mg tablet 2 mg PO QHS acetylcysteine [NAC] 600 mg capsule 1,200 mg PO BID metoprolol tartrate 50 mg tablet 50 mg PO DAILY multivitamin Tablet 1 tab PO DAILY memantine 10 mg tablet 10 mg PO BID Qty: 180 3RF gabapentin 100 mg capsule 100 mg PO BID gabapentin 100 mg capsule 200 mg PO QHS metformin 750 mg tablet extended release 24 hr 750 mg PO HS Qty: 90 3RF albuterol sulfate [ProAir HFA] 90 mcg/actuation HFA aerosol inhaler 2 puff Inhalation Q6H PRN Qty: 3 1RF pseudoephedrine HCl [Sudafed] 30 mg tablet 60 mg PO PRN PRN amlodipine 10 mg tablet 10 mg PO DAILY bupropion HCl 100 mg tablet 200 mg PO BID fluoxetine 20 mg capsule 40 mg PO DAILY PreserVision AREDS-2 250-90-40-1 mg capsule 2 tab PO DAILY donepezil 5 mg tablet 5 mg PO QHS Qty: 90 3RF atorvastatin 80 mg tablet 80 mg PO QHS Qty: 90 1RF diphenhydramine HCl 25 mg capsule 25 mg PO HS irbesartan [Avapro] 300 mg tablet 300 mg PO DAILY nystatin [Nystop] 100,000 unit/gram powder 1 pwd TOPICAL DAILY omeprazole 40 mg capsule,delayed release(DR/EC) 40 mg PO HS Safron Lift PO DAILY celecoxib 200 mg capsule 200 mg PO BID PRN (Reason: pain) Qty: 60 1RF acetaminophen [Acetaminophen Extra Strength] 500 mg tablet 1,000 mg PO TID Qty: 90 0RF Discharge Instructions Instructions: Chest Pain (ED) Additional Instructions: Continue on your Tylenol regimen You may take either Flexeril 5 mg every 8 hours or the oxycodone 5 mg 1-2 times a day as needed for discomfort, be aware that this medication is addictive and you should not operate a vehicle for at least 8 hours after taking this medication Continue to take deep breaths, at least 10 full inhalations and exhalations daily Return earlier should you have worsening pain, fever, chills, or should any new concerns arise, recommend recheck with your primary care physician in 24 to 48 hours Referrals: Maria Esther Haynes [Primary Care Provider] - 1 day Discharge Data Discharge Date/Time-TO BE ENTERED AT DEPARTURE: 07/23/23 20:42 HPI General Date/Time Provider Initiated Documentation: 07/23/23 16:15 . HPI Narrative: This 78-year-old male presents with report of fall with chest pain. Patient states he was helping his move a cement block and he lost his balance and fell backward onto the ground. He landed on his back. He denies any head injury or loss of consciousness. States that he developed anterior chest pain after the fall and has remained constant since onset, worse with moving. This happened several hours prior to arrival. Denies any associated shortness of breath, nausea, vomiting. Denies any paresthesias to lower extremities. Denies any hemoptysis. Related Data Home Medications Medication Instructions Recorded Confirmed qhxdfwtgknc-koz-oatxmuokr-hrb 1 tab PO BID 07/02/18 07/23/23 149-hyalur 500 mg-500 mg-66.7 mg tablet (Emwdftshyxh-Iqmxqlygxuo-JKF (with antiox)) diphenhydramine HCl 25 mg capsule 25 mg PO HS 12/26/18 07/23/23 ropinirole 2 mg tablet 2 mg PO QHS 12/26/18 07/23/23 blood sugar diagnostic (FreeStyle #100 strips 04/30/19 07/23/23 Lite Strips) lancets 28 gauge (FreeStyle #100 ea 04/30/19 07/23/23 Lancets) irbesartan 300 mg tablet (Avapro) 300 mg PO DAILY 09/19/19 07/23/23 metformin 750 mg tablet,extended 750 mg PO HS diabetes #90 tabs 11/25/19 07/23/23 release 24 hr albuterol sulfate 90 mcg/actuation 2 puff inhalation Q6H PRN ##3 12/23/19 07/23/23 aerosol inhaler (ProAir HFA) pseudoephedrine HCl 30 mg tablet 60 mg PO PRN PRN 07/22/20 07/23/23 (Sudafed) acetylcysteine 600 mg capsule (NAC) 1,200 mg PO BID 04/20/21 07/23/23 amlodipine 10 mg tablet 10 mg PO DAILY 05/24/21 07/23/23 bupropion HCl 100 mg tablet 200 mg PO BID 05/24/21 07/23/23 metoprolol tartrate 50 mg tablet 50 mg PO DAILY 06/20/21 07/23/23 nystatin 100,000 unit/gram topical 1 pwd topical DAILY 07/27/21 07/23/23 powder (Nystop) omeprazole 40 mg capsule,delayed 40 mg PO HS 07/27/21 07/23/23 release multivitamin 1 tab PO DAILY 08/23/21 07/23/23 fluoxetine 20 mg capsule 40 mg PO DAILY 02/21/22 07/23/23 vit C 250 mg-vit E 90 mg-zinc 40 2 tab PO DAILY 05/30/22 07/23/23 mg-copper 1 tu-gjmrvu-kxatdm capsule (PreserVision AREDS-2) Safron Lift PO DAILY 08/14/22 07/19/23 acetaminophen 500 mg tablet 1,000 mg (2 x 500 mg) PO TID #90 08/15/22 07/23/23 (Acetaminophen Extra Strength) tabs celecoxib 200 mg capsule 200 mg PO BID PRN pain #60 caps 08/15/22 07/23/23 donepezil 5 mg tablet 5 mg PO QHS #90 tabs 10/10/22 07/23/23 aspirin 81 mg tablet,delayed 81 mg PO DAILY 11/30/22 07/19/23 release atorvastatin 80 mg tablet 80 mg PO QHS #90 tabs 03/12/23 07/23/23 memantine 10 mg tablet 10 mg PO BID #180 tabs 06/21/23 07/23/23 gabapentin 100 mg capsule 100 mg PO BID 07/03/23 07/23/23 gabapentin 100 mg capsule 200 mg PO QHS 07/03/23 07/23/23 oxycodone 5 mg capsule 5 mg PO BID PRN #6 caps 07/23/23 Previous Rx's Medication Instructions Recorded blood sugar diagnostic (FreeStyle #100 strips 04/30/19 Lite Strips) lancets 28 gauge (FreeStyle #100 ea 04/30/19 Lancets) metformin 750 mg tablet,extended 750 mg PO HS diabetes #90 tabs 11/25/19 release 24 hr albuterol sulfate 90 mcg/actuation 2 puff inhalation Q6H PRN ##3 12/23/19 aerosol inhaler (ProAir HFA) acetaminophen 500 mg tablet 1,000 mg (2 x 500 mg) PO TID #90 08/15/22 (Acetaminophen Extra Strength) tabs celecoxib 200 mg capsule 200 mg PO BID PRN pain #60 caps 08/15/22 donepezil 5 mg tablet 5 mg PO QHS #90 tabs 10/10/22 atorvastatin 80 mg tablet 80 mg PO QHS #90 tabs 03/12/23 memantine 10 mg tablet 10 mg PO BID #180 tabs 06/21/23 oxycodone 5 mg capsule 5 mg PO BID PRN #6 caps 07/23/23 Allergies Allergy/AdvReac Type Severity Reaction Status Date / Time codeine AdvReac Intermediate N/V Verified 07/23/23 18:26 lisinopril AdvReac cough Verified 07/23/23 18:26 General Stated Complaint: Chest Pain SUHAS: 3 Exam Narrative Exam Narrative: Alert and oriented 78-year-old male, no visible signs of head trauma, uvula midline, oropharynx patent, pupils equal round reactive to light and accommodation, no midline neck tenderness or visible sign of trauma, palpable chest wall tenderness, no crepitus, lungs clear to auscultation bilaterally, cardiac rate rhythm regular, no palpable abdominal tenderness or visible evidence of trauma, no CVA tenderness or visible evidence of trauma, no thoracic or lumbar spine tenderness, no pallor, no open wounds, GCS 15, alert and oriented x 3, able to follow all basic commands, ambulatory with steady gait Course Vital Signs Vital signs: Vital Signs Temperature 37.4 C 07/23/23 16:15 Pulse 62 07/23/23 16:15 Respiratory Rate 15 07/23/23 16:15 Pulse Oximetry 94 07/23/23 16:15 Temperature 37.4 C 07/23/23 20:56 Temperature Source Tympanic 07/23/23 16:15 Pulse 64 07/23/23 20:56 Pulse 64 07/23/23 20:10 Respiratory Rate 14 07/23/23 20:56 Respiratory Effort Normal 07/23/23 16:55 Respiratory Depth Normal 07/23/23 16:55 Respiratory Pattern Normal 07/23/23 16:55 Blood Pressure 182/95 H 07/23/23 20:56 Blood Pressure Mean 126 07/23/23 20:01 Blood Pressure Position Supine 07/23/23 16:15 Pulse Oximetry 91 L 07/23/23 20:56 Oxygen Delivery Method Room Air 07/23/23 16:15 Oxygen Flow Rate 0 07/23/23 16:15 Pain Level 5 07/23/23 17:04 Lab/Test Results Lab/Test Results: Laboratory Tests Range/Units 07/23/23 07/23/23 07/23/23 16:30 17:25 19:00 WBC (4.4-10.8) 10^3/uL 9.89 RBC (4.36-5.78) 10^6/uL 5.20 Hgb (13.5-17.5) g/dL 15.8 Hct (40.0-50.0) % 47.7 MCV (80-95) fL 92 MCH (27.0-33.0) pg 30.4 MCHC (32.0-36.0) % 33.1 RDW (11.8-14.1) % 14.3 H Plt Count (130-400) 10^3/uL 181 MPV (8.0-11.0) fL 10.0 Immature Gran % % 0.4 Neutrophils % % 69.8 Lymphocytes % % 16.4 Monocytes % % 10.0 Eosinophils % % 2.9 Basophils % % 0.5 Nucleated RBC % (0.0-0.3) % 0.0 Absolute Neutrophils (1.2-6.7) 10^3/uL 6.90 H Absolute Lymphocytes (1.2-3.4) 10^3/uL 1.62 Absolute Monocytes (0.1-0.8) 10^3/uL 0.99 H Absolute Eosinophils (0.0-0.7) 10^3/uL 0.29 Absolute Basophils (0.0-0.2) 10^3/uL 0.05 Sodium (136-145) mmol/L 139 Potassium (3.5-5.1) mmol/L 3.3 L Chloride (98-107) mmol/L 101 Carbon Dioxide (21.0-32.0) mmol/L 25.9 Anion Gap (3-11) mmol/L 12.1 H BUN (7-18) mg/dL 22 H Creatinine (0.70-1.30) mg/dL 1.0 Est GFR (CKD-EPI 2020) (mL/min/1.73m2) 77.52 Glucose (74-106) mg/dL 158 H Calcium (8.5-10.1) mg/dL 9.9 Magnesium (1.8-2.4) mg/dL 1.8 Total Bilirubin (0.2-1.0) mg/dL 0.7 AST (15-37) U/L 40 H ALT (16-63) U/L 57 Alkaline Phosphatase (46-116) U/L 208 H Troponin I (< or =60) ng/L < 50 < 50 Total Protein (6.4-8.2) g/dL 8.3 H Albumin (3.4-5.0) g/dL 4.2 Lipase (16-77) U/L 54 Urine Color (Yellow) Yellow Urine Clarity (Clear) Clear Urine pH (5-8) 6.0 Ur Specific [place] (1.005-1.025) 1.025 Urine Protein (Neg-Trace) mg/dL 100 H Urine Ketones (Negative) mg/dL Trace H Urine Blood (Negative) Moderate H Urine Nitrite (Negative) Negative Urine Bilirubin (Negative) Negative Urine Urobilinogen (Up to 0.2) mg/dL 0.2 Ur Leukocyte Esterase (Negative) Negative Urine RBC (0-2) HPF >50 H Urine WBC (0-5) HPF 0-2 Ur Epithelial Cells (Negative) HPF Rare Urine Crystals (Negative) HPF Negative Urine Bacteria (Negative) HPF Rare Urine Casts (Negative) LPF 0-2 Hyaline Urine Mucus (Negative) Negative Ur Culture Indicated? 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 Started age and comorbidities, EKG and CTA chest abdomen pelvis in addition to CT head and cervical spine ordered for further evaluation. CT head and cervical spine per r adiologist interpretation and review does not show evidence of acute pathology. CTA of chest abdomen and pelvis does not show evidence of acute pathology per Dr. Rodriguez, personal discussion with radiologist performed. Initial EKG does not show evidence of acute ischemia. Patient did develop worsening pain so repeat EKG was ordered without any change. Repeat troponin was negative, patient is feeling marked improvement after opiate analgesia, he is ambulatory with steady gait fully alert and oriented. He does tell me that he has had this pain previously and it now feels more like this episode he presented with several weeks ago. He states he would like to be discharged home, I did recommend admission to the hospital with serial troponins and analgesia which patient has declined. and patient did assure me that patient will return should he have persistent or worsening symptoms. He has instructed follow-up with his primary care physician tomorrow, several tablets of oxycodone were administered for discomfort. Blood pressure was elevated, patient is encouraged to follow-up with his primary care physician regarding this finding. Potassium 3.3, encouraged to take a multivitamin, AST very mildly elevated, however no change from prior encouraged to have urinalysis rechecked by primary care physician as patient does have moderate blood, no prior to compare. Quality:SDOH Health Related Social Needs: No Data to Display PFSH All Active Problems (Updated 07/23/23 @ 20:30 by KEERTHI Briseno) Fall (Acute) Atypical chest pain (Acute) Abnormality detected on rectal examination of prostate (Acute) Elevated PSA (Acute) Arthritis of carpometacarpal (CMC) joint of left thumb (Acute) Trigger thumb, left thumb (Acute) Pain (Acute) Lesion of vertebra (Acute) Abdominal aortic aneurysm (AAA) >39 mm diameter (Acute 01/05/17) 42cm -201606/25/17 4.4 cm distal abdominal aortic aneurysm 4.20 cm 05/14/18 4.50 cm 12/12/18 4.60x4.50 cm 06/12/19 4.60x4.60 cm repeat 1 yr Depressive disorder, not elsewhere classified (Chronic 05/21/12) Diaphragmatic hernia (Acute 05/21/12) Diverticulosis of colon (without mention of hemorrhage) (Acute 05/21/12) Decreased cardiac ejection fraction (Acute 02/07/17) Diabetes mellitus (Acute 05/31/16) Gastroesophageal reflux disease without esophagitis (Acute 05/21/12) Obesity, unspecified (Acute 08/03/11) Osteoarthritis of first metatarsophalangeal joint (Acute 11/04/14) Osteoarthritis of right knee (Acute 12/24/14) Dr. 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 (Chronic) Vertebral artery occlusion (Acute) Gait disorder (Acute) Alzheimer's dementia (Acute) Trigger finger, right index finger (Acute) Trigger finger, left index finger (Acute) History of total right hip replacement (Acute 08/15/22) Muscle spasm of right lower extremity (Acute) Pain in hip region after hip replacement (Acute) Periprosthetic fracture around internal prosthetic right hip joint (Acute) Closed fracture of anterior column of right acetabulum (Acute) Vascular dementia (Acute) Bradycardia (Acute) Medical History Macular degeneration of left eye Detached retina Sleep apnea Hyperlipidemia Hypertension Intermittent asthma Hiatal hernia Depressive disorder GERD (gastroesophageal reflux disease) Type 2 diabetes mellitus Low left ventricular ejection fraction Ascending aortic aneurysm Hx of fall April 2018, fall off ladder, fractures cervical and T5; no surgery, brace worn Aneurysm Macular degeneration Colon cancer screening Pre-op evaluation Laceration of left thumb (11/16/18) Compression fracture C7 lamina fx, T1 anterosuperior corner fx, and T4 compression fx. Suspicion of three column [place] [facility] [place]27/18[place] AAA (abdominal aortic aneurysm) 4.6cm in 2019, follow up in 1 year Obstructive sleep apnea (adult) (pediatric) (05/21/12) [facility] -Beverly Maldonado Essential hypertension (11/22/12) Surgical History [place] 1999[place] [facility] [place]x of ijqsl-uksmn-[id number] bypass stent 06/06/21 Hx of aortic aneurysm repair stents, 04/25/21 S/P vasectomy S/P right knee arthroscopy S/P cataract surgery bilateral S/P left inguinal hernia repair (~2019) x2 Tonsillectomy and adenoidectomy Great toe implant (12/01/14) Jason Pegueroe Family History Mother Substance abuse Diabetes Essential hypertension Hyperlipidemia Skin cancer FH: ovarian cancer Alcohol abuse Sister Neoplasm lung Ca with Mets Macular degeneration Father Alcohol abuse Depression Social History Smoking/Tobacco Use Status: Former Tobacco Use Smoking risk assessment performed?: Yes Alcohol Intake: current Alcohol Intake frequency: a few times a month Alcohol type: beer and hard liquor Drug use: Never Substance use type: does not use Household members: spouse Housing: house Number of Children: 3 number of grandchildren: 9 Communication Needs: Corrective Lenses current occupation: retired Pets and animals: Yes Pets and animals: cat(s) Current gender identity: male What is your relationship status?: Panel score (0-1 are the most socially isolated patients): 1 What type of physical activity do you participate in: additional Details: Pt exercise group Seatbelt use: always Drive intox or ride w/intox funeral driver: No Working smoke detector in home: Yes Fire extinguisher in home: Yes Carbon monox detector in home: Yes
== END 2023-07-23 20:42 | disposition home or self-care (01) ==
PROVIDERS: Emergency Provider Physician Assistant; PCP Nurse Practitioner Family
DX: R07.89 Other chest pain (principal); Z86.79 Personal history of other diseases of the circulatory system; W18.30XA Fall on same level, unspecified, initial encounter
CPT/HCPCS: 36415; 71275; 74175; 80053; 83690; 93005; 96361; 96374; 96375; 96376; 99285; 70450; 72125; 81003; 81015; 83735; 84484; 85025; 93010; 99283; J1170; J2270; J3490

== ENCOUNTER 2023-07-24 14:46 | Emergency (ER) | payer OTHER, SELFPAY ==
[2023-07-24] VITALS (67 sets, daily range): BP systolic 132–199; BP diastolic 64–140; PULSE 57–65; RESP 12–26; TEMP 36.8; O2SAT 2–95
--- NOTE | 2023-07-24 14:45 | RT.EKG_ITS ---
APPROVED REPORT Exam: Resting ECG Reason for Exam: chest pain Patient Location: E HR:62 bpm ECG Measurements Heart Rate 62 AXIS MD 214 P 37 QRSd 106 QRS -67 QT 451 T -3 QTc 458 Conclusion Sinus rhythm...normal P axis, V-rate 60- 99 Borderline prolonged MD interval...MD >212, V-rate 50- 90 Left anterior fascicular block...axis(240,-40), init forces inf There are no significant changes compared to prior EKG performed on 07/23/2023 at 17:55.
--- NOTE | 2023-07-24 14:50 | W.ED.GENAD ---
Discharge Plan Disposition Patient Disposition: Transfer-Acute Inpatient Care Specific Acute Inpt Facility: [facility] Discharge Details Clinical Impression: Acute paraplegia Primary Care Provider: Maria Esther Haynes ED Provider: Chao Camejo Rinard Meds and New Rx's Prescriptions: No Action [id number]-ogl-[id number] [Krwkii-Byiqr-OEL (with antiox)] 500-500-66.7 mg tablet 1 tab PO BID (DME) lancets [FreeStyle Lancets] 28 gauge misc 1 ea Miscellaneous DAILY Qty: 100 1RF Rx Instructions: E11.9 to maintain A1C less than 7 (DME) FreeStyle Lite Strips Strip 1 ea Miscellaneous DAILY Qty: 100 3RF Rx Instructions: E11.9 to maintain A1C less than 7 aspirin 81 mg tablet,delayed release (DR/EC) 81 mg PO DAILY ropinirole 2 mg tablet 2 mg PO QHS acetylcysteine [NAC] 600 mg capsule 1,200 mg PO BID metoprolol tartrate 50 mg tablet 50 mg PO DAILY multivitamin Tablet 1 tab PO DAILY memantine 10 mg tablet 10 mg PO BID Qty: 180 3RF gabapentin 100 mg capsule 100 mg PO BID gabapentin 100 mg capsule 200 mg PO QHS metformin 750 mg tablet extended release 24 hr 750 mg PO HS Qty: 90 3RF albuterol sulfate [ProAir HFA] 90 mcg/actuation HFA aerosol inhaler 2 puff Inhalation Q6H PRN Qty: 3 1RF pseudoephedrine HCl [Sudafed] 30 mg tablet 60 mg PO PRN PRN amlodipine 10 mg tablet 10 mg PO DAILY bupropion HCl 100 mg tablet 200 mg PO BID fluoxetine 20 mg capsule 40 mg PO DAILY PreserVision AREDS-2 250-90-40-1 mg capsule 2 tab PO DAILY donepezil 5 mg tablet 5 mg PO QHS Qty: 90 3RF atorvastatin 80 mg tablet 80 mg PO QHS Qty: 90 1RF oxycodone 5 mg capsule 5 mg PO BID PRNQty: 6 0RF diphenhydramine HCl 25 mg capsule 25 mg PO HS irbesartan [Avapro] 300 mg tablet 300 mg PO DAILY nystatin [Nystop] 100,000 unit/gram powder 1 pwd TOPICAL DAILY omeprazole 40 mg capsule,delayed release(DR/EC) 40 mg PO HS Safron Lift PO DAILY celecoxib 200 mg capsule 200 mg PO BID PRN (Reason: pain) Qty: 60 1RF acetaminophen [Acetaminophen Extra Strength] 500 mg tablet 1,000 mg PO TID Qty: 90 0RF HPI General Mode of arrival: ambulatory. Date/Time Provider Initiated Documentation: 07/24/23 14:50. Limitations to Documentation: no limitations. Information obtained by: patient and family (). HPI Narrative: Patient presents to ED with continued right upper quadrant/epigastric/chest pain. Patient seen here yesterday after a fall and developing the same pain an hour or 2 later. In speaking with the (patient poor historian because of dementia), patient has been having right upper quadrant abdominal pain on and off since February. Primary care did a CT scan in March which was unremarkable other than an endovascular leak from previous repair of his AAA. His vascular surgeon at [facility] is aware of this. Subsequently ended up in the ED in June for worse right upper quadrant pain. Workup at that time including a repeat CT scan showed a stable leak and no acute changes. There were questionable findings in his thoracic spine and he is currently being worked up for potential prostate cancer. He had full imaging done yesterday after his fall. Head and cervical spine were negative. Chest abdomen pelvis showed distended gallbladder otherwise stable leak and no acute findings. He required a few rounds of IV morphine, pain ultimately controlled, patient wished to go home and concurred. Overnight slept in recliner because he did not get comfortable. He has had a couple of doses of the hydrocodone he was sent home with. Has continued to feel pain and uncomfortable and was brought back to the ED this afternoon. No report of any fever, chest pain, shortness of breath, vomiting. Related Data Home Medications Medication Instructions Recorded Confirmed [id number]-tap-nzvluwbjx-hrb 1 tab PO BID 07/02/18 07/24/23 149-hyalur 500 mg-500 mg-66.7 mg tablet (Ofgpmxmllew-Acwndseumrt-CMA (with antiox)) diphenhydramine HCl 25 mg capsule 25 mg PO HS 12/26/18 07/24/23 ropinirole 2 mg tablet 2 mg PO QHS 12/26/18 07/24/23 blood sugar diagnostic (FreeStyle #100 strips 04/30/19 07/24/23 Lite Strips) lancets 28 gauge (FreeStyle #100 ea 04/30/19 07/24/23 Lancets) irbesartan 300 mg tablet (Avapro) 300 mg PO DAILY 09/19/19 07/24/23 metformin 750 mg tablet,extended 750 mg PO HS diabetes #90 tabs 11/25/19 07/24/23 release 24 hr albuterol sulfate 90 mcg/actuation 2 puff inhalation Q6H PRN ##3 12/23/19 07/24/23 aerosol inhaler (ProAir HFA) pseudoephedrine HCl 30 mg tablet 60 mg PO PRN PRN 07/22/20 07/24/23 (Sudafed) acetylcysteine 600 mg capsule (NAC) 1,200 mg PO BID 04/20/21 07/24/23 amlodipine 10 mg tablet 10 mg PO DAILY 05/24/21 07/24/23 bupropion HCl 100 mg tablet 200 mg PO BID 05/24/21 07/24/23 metoprolol tartrate 50 mg tablet 50 mg PO DAILY 06/20/21 07/24/23 nystatin 100,000 unit/gram topical 1 pwd topical DAILY 07/27/21 07/24/23 powder (Nystop) omeprazole 40 mg capsule,delayed 40 mg PO HS 07/27/21 07/24/23 release multivitamin 1 tab PO DAILY 08/23/21 07/24/23 fluoxetine 20 mg capsule 40 mg PO DAILY 02/21/22 07/24/23 vit C 250 mg-vit E 90 mg-zinc 40 2 tab PO DAILY 05/30/22 07/24/23 mg-copper 1 lp-qdyaly-jylioi capsule (PreserVision AREDS-2) Safron Lift PO DAILY 08/14/22 07/19/23 acetaminophen 500 mg tablet 1,000 mg (2 x 500 mg) PO TID #90 08/15/22 07/24/23 (Acetaminophen Extra Strength) tabs celecoxib 200 mg capsule 200 mg PO BID PRN pain #60 caps 08/15/22 07/24/23 donepezil 5 mg tablet 5 mg PO QHS #90 tabs 10/10/22 07/24/23 aspirin 81 mg tablet,delayed 81 mg PO DAILY 11/30/22 07/24/23 release atorvastatin 80 mg tablet 80 mg PO QHS #90 tabs 03/12/23 07/24/23 memantine 10 mg tablet 10 mg PO BID #180 tabs 06/21/23 07/24/23 gabapentin 100 mg capsule 100 mg PO BID 07/03/23 07/24/23 gabapentin 100 mg capsule 200 mg PO QHS 07/03/23 07/24/23 oxycodone 5 mg capsule 5 mg PO BID PRN #6 caps 07/23/23 07/24/23 Previous Rx's Medication Instructions Recorded blood sugar diagnostic (FreeStyle #100 strips 04/30/19 Lite Strips) lancets 28 gauge (FreeStyle #100 ea 04/30/19 Lancets) metformin 750 mg tablet,extended 750 mg PO HS diabetes #90 tabs 11/25/19 release 24 hr albuterol sulfate 90 mcg/actuation 2 puff inhalation Q6H PRN ##3 12/23/19 aerosol inhaler (ProAir HFA) acetaminophen 500 mg tablet 1,000 mg (2 x 500 mg) PO TID #90 08/15/22 (Acetaminophen Extra Strength) tabs celecoxib 200 mg capsule 200 mg PO BID PRN pain #60 caps 08/15/22 donepezil 5 mg tablet 5 mg PO QHS #90 tabs 10/10/22 atorvastatin 80 mg tablet 80 mg PO QHS #90 tabs 03/12/23 memantine 10 mg tablet 10 mg PO BID #180 tabs 06/21/23 oxycodone 5 mg capsule 5 mg PO BID PRN #6 caps 07/23/23 Allergies Allergy/AdvReac Type Severity Reaction Status Date / Time codeine AdvReac Intermediate N/V Verified 07/24/23 14:55 lisinopril AdvReac cough Verified 07/24/23 14:55 General SUHAS: 3 Review of Systems Narrative: Per HPI Exam Narrative Exam Narrative: Const: WDWN elderly male in NAD. VS per triage. HEENT: NC/AT. Normal facial exam. Neck: Supple. Trachea midline. Lungs: Normal respiratory effort. Lungs are clear. Cor: RRR without murmur. Good radial pulses. GI: Soft/ND/NT. Back: No spine tenderness, no posterior rib tenderness. Neuro: A+O x 3. Normal speech, mentation, gait. Cranial nerves II - XII grossly intact. No gross motor or sensory deficit. Ext: No C/C/E. Medical Decision Making Patient presenting to ED with continued right upper quadrant and epigastric pain. Patient not the best historian because of underlying dementia. able to fill in details and timeline. This is not a new pain but has been a chronic intermittent problem. It has however been constant since yesterday. Not clear to me whether the fall had anything to do with this or not. Apparently last night was rubbing the lower substernal area and epigastric area. Patient today saying it is the same right upper quadrant pain. He has had multiple CT scans but has never had an ultrasound. Yesterday CT showed a distended gallbladder. He really is not tender in the abdomen. Complains of pain in that right upper quadrant area. I have reviewed labs, imaging studies, notes that are available to me from this year in our records. Of note he had an MRI of the spine done at [place] with results available, scanned in by Dr. Olivas's office. 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 He underwent prostate biopsy on July 19. Will obtain repeat labs, EKG, right upper quadrant ultrasound. Laboratory studies today show a white count of 13.6 up from normal yesterday. Hemoglobin remained stable and normal. Kidney function remains normal. Liver function with worsening total bilirubin to 1.2. AST remains mildly elevated at 44. ALT remains normal. Alk phos remains elevated at 296. Initial troponin came back at 114. His EKG today per my read is sinus rhythm with no change compared to both EKGs done yesterday. His right upper quadrant ultrasound shows gallbladder distention and fatty liver, no stones, no common biliary duct dilatation. I feel the troponin leak is likely related to demand ischemia. Concern for acalculus or chronic cholecystitis given the continued distention of his gallbladder with rise in white blood cell count and total bilirubin. Discussed with surgery, Dr. Collins, including the known history of graft repair AAA with endoleak, positive troponins. Does agree that acalculus cholecystitis is a consideration. However, felt patient's complicated history made him more appropriate for higher level of care with availability of vascular, cardiology, interventional radiology. Patient given a dose of Zosyn and started on fluids. Call placed to [facility]. Approximately 2.5 into his ED visit he began to complain of difficulty moving his left lower extremity. On repeat evaluation he did seem to have some weakness but he was able to plantarflex, kick out and had sensation. He was unable to hold either his right or left leg up. He had walked in on his own on arrival. Sensory remained intact. He was seen by surgery. While he complains of pain in the right upper quadrant he is not tender in the right upper quadrant. Dr. Collins at this point not completely convinced this is cholecystitis though still a possibility. Thinks there is something more insidious going on. [facility] unable to accept patient to hospitalist service due to lack of capacity. Will talk to hospitalist regarding admission for troponin trending and HIDA scan. Subsequently I reevaluated the patient with no ability to move the left leg at all but sensory intact. Did obtain CTA of head and neck which showed some stenosis of the left vertebral artery otherwise no LVO, aneurysm, bleed. Reevaluated a third time after the nurse reports patient now complaining of right leg weakness. Patient now completely paraplegic. He has great distal pulses. He has diminished sensation to the level of his rib cage. Now does not seem to be stroke related but more potentially spine related. Did just have the MRI on July 19 as described above. I called [facility] back to discuss ED to ED transfer for emergent spine MRI. I spoke with radiology who felt that was completely necessary study at this point. I then spoke with the ED attending, Dr. Nath. Patient accepted as ED to ED transfer. A repeat troponin is lower at 84. Patient and consented regarding transfer. Patient has been hemodynamically stable and if anything vital signs have improved. He does seem to have episodes of confusion. He is on oxygen and has LR running at 100. Will transfer emergently to [facility] for further evaluation. Medical Records Medical records reviewed: Yes I reviewed the patient's medical records. Lab Data Lab results reviewed: Yes I reviewed the patient's lab results. ECG Data Attestation: I personally reviewed and interpreted this ECG (s) as follows: Prior ECG tracings: available for review Interpretation: see EKG Quality:SDOH Health Related Social Needs: No Data to Display Critical Care Time Critical Care Time Critical Care Time: Yes Total Critical Care Time: 60 Attestation: Upon my evaluation, this patient had a high probability of imminent or life-threatening deterioration, which required my direct attention, intervention, and personal management. I have personally provided 60 minutes of critical care time exclusive of time spent on separately billable procedures. Time includes monitoring for potential decompensation, ordering of tests and medications, review of laboratory and radiology results, discussion with consultants and documentation . Interventions were performed as documented above in procedures. [facility] All Active Problems (Updated 07/24/23 @ 22:03 by Chao Camejo MD) Acute paraplegia (Acute) Fall (Acute) Atypical chest pain (Acute) Abnormality detected on rectal examination of prostate (Acute) Elevated PSA (Acute) Arthritis of carpometacarpal (CMC) joint of left thumb (Acute) Trigger thumb, left thumb (Acute) Pain (Acute) Lesion of vertebra (Acute) Abdominal aortic aneurysm (AAA) >39 mm diameter (Acute 01/05/17) 42cm -201606/25/17 4.4 cm distal abdominal aortic aneurysm 4.20 cm 05/14/18 4.50 cm 12/12/18 4.60x4.50 cm 06/12/19 4.60x4.60 cm repeat 1 yr Depressive disorder, not elsewhere classified (Chronic 05/21/12) Diaphragmatic hernia (Acute 05/21/12) Diverticulosis of colon (without mention of hemorrhage) (Acute 05/21/12) Decreased cardiac ejection fraction (Acute 02/07/17) Diabetes mellitus (Acute 05/31/16) Gastroesophageal reflux disease without esophagitis (Acute 05/21/12) Obesity, unspecified (Acute 08/03/11) Osteoarthritis of first metatarsophalangeal joint (Acute 11/04/14) Osteoarthritis of right knee (Acute 12/24/14) Dr. 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 (Chronic) Vertebral artery occlusion (Acute) Gait disorder (Acute) Alzheimer's dementia (Acute) Trigger finger, right index finger (Acute) Trigger finger, left index finger (Acute) History of total right hip replacement (Acute 08/15/22) Muscle spasm of right lower extremity (Acute) Pain in hip region after hip replacement (Acute) Periprosthetic fracture around internal prosthetic right hip joint (Acute) Closed fracture of anterior column of right acetabulum (Acute) Vascular dementia (Acute) Bradycardia (Acute) Medical History 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 Suspicion of three column injury. [facility] D/C summary (05/20/18-05/27/18). AAA (abdominal aortic aneurysm) 4.6cm in 2020, follow up in 1 year Obstructive sleep apnea (adult) (pediatric) (05/21/12) BIPAP -Beverly Maldonado Essential hypertension (11/22/12) Surgical History S/P trigger finger release early 1999s at [facility] Hx of pmicu-abrlj-prabzyj bypass stent 06/06/21 Hx of aortic aneurysm repair stents, 04/25/21 S/P vasectomy S/P right knee arthroscopy S/P cataract surgery bilateral S/P left inguinal hernia repair (~2019) x2 Tonsillectomy and adenoidectomy Great toe implant (12/01/14) Jason Mccrayagne Family History Mother Substance abuse Diabetes Essential hypertension Hyperlipidemia Skin cancer FH: ovarian cancer Alcohol abuse Sister Neoplasm lung Ca with Mets Macular degeneration Father Alcohol abuse Depression Social History Smoking/Tobacco Use Status: Former Tobacco Use Smoking risk assessment performed?: Yes Alcohol Intake: current Alcohol Intake frequency: a few times a month Alcohol type: beer and hard liquor Drug use: Never Substance use type: does not use Household members: spouse Housing: house Number of Children: 3 number of grandchildren: 9 Communication Needs: Corrective Lenses current occupation: retired Pets and animals: Yes Pets and animals: cat(s) Current gender identity: male What is your relationship status?: Panel score (0-1 are the most socially isolated patients): 1 What type of physical activity do you participate in: additional Details: Pt exercise group Seatbelt use: always Drive intox or ride w/intox carry all driver: No Working smoke detector in home: Yes Fire extinguisher in home: Yes Carbon monox detector in home: Yes
--- NOTE | 2023-07-24 15:15 | DI.US_ITS ---
Exam(s) US ABDOMEN LIMITED EXAM: US ABDOMEN LIMITED CLINICAL HISTORY: chronic intermittent RUQ pain; worse today TECHNIQUE: Ultrasound abdomen performed using standard protocol. COMPARISON: US AAA DIAGNOSTIC/FOLLOW UP from 06/25/2017 FINDINGS: PANCREAS: Normal where visualized. LIVER: There is diffuse increased echogenicity of the liver which can be seen with fatty infiltration . Hepatopetal flow in the Portal Vein. The liver measures in 16.8 cm length. No evidence of a hepati c mass. GALLBLADDER: No evidence of cholelithiasis. No evidence of wall thickening. No pericholecystic fluid identified. Gallbladder is distended measuring 11.1 x 6.2 cm wide. BILIARY SYSTEM: Common bile duct measures < 7 mm. No intrahepatic biliary ductal dilation. GIRALDO'S SIGN: Negative. RIGHT KIDNEY: Kidney is normal in size. No evidence of renal calculi. No evidence of hydronephrosis. Simple right renal cyst. No follow-up is recommended. ASCITES: None seen. IMPRESSION: 1. Distended gallbladder. No biliary ductal dilatation or cholelithiasis. 2. Hepatic steatosis. DATA REPOSITORY:
[2023-07-24 15:35] LABS: HCT 46.4 % (40.0-50.0); HGB 15.5 g/dL (13.5-17.5); MCH 30.2 pg (27.0-33.0); MCHC 33.4 % (32.0-36.0); MCV 90 fL (80-95); MPV 10.4 fL (8.0-11.0); Platelet Count 151 10^3/uL (130-400); RBC 5.14 10^6/uL (4.36-5.78); RDW 14.4 % (11.8-14.1); RDW-SD 47.8 fL; WBC 13.58 10^3/uL (4.4-10.8)
[2023-07-24] MEDS: MORPHine 10 MG/ML VIAL 4 MG IVP (15:40)
[2023-07-24] MEDS: Ondansetron 4 MG/2 ML VIAL IVP (15:41)
[2023-07-24 15:56] LABS: Absolute Lymphocyte Count 1.22 10^3/uL (1.2-3.4); Absolute Monocyte Count 1.77 10^3/uL (0.1-0.8); Absolute Neutrophil Count 10.59 10^3/uL (1.2-6.7); Atypical Lymphocytes % 5 %; Bands % 2 %
[2023-07-24 15:57] LABS: Diff Comment Manual Differential; RBC Morphology Normal
[2023-07-24 15:58] LABS: ALT 48 U/L (16-63); AST 44 U/L (15-37); Albumin 4.1 g/dL (3.4-5.0); Alkaline Phosphatase 296 U/L (46-116); Anion Gap 14.1 mmol/L (3-11); BUN 18 mg/dL (7-18); Bilirubin, Total 1.2 mg/dL (0.2-1.0); CO2 22.9 mmol/L (21.0-32.0); CREATININE 1.1 mg/dL (0.70-1.30); Calcium 9.7 mg/dL (8.5-10.1); Chloride 101 mmol/L (98-107); Estimated GFR 69.14 (mL/min/1.73m2); Glucose 202 mg/dL (74-106); Lipase 56 U/L (16-77); Potassium 3.3 mmol/L (3.5-5.1); Sodium 138 mmol/L (136-145)
[2023-07-24 16:00] LABS: Troponin I 114 ng/L (< or =60)
[2023-07-24] MEDS: MORPHine 4 MG/ML SYR IVP ×2 (17:35→21:32)
[2023-07-24] MEDS: PIPERACILLIN/TAZO 3.375 GM in Normal Saline 50 ML IVPB (17:35)
[2023-07-24] MEDS: Lactated Ringers 1,000 ML 100 ML IV (17:35)
--- NOTE | 2023-07-24 18:21 | W.SURGCON ---
Date of service: 07/24/23 Time of Service: 18:00 Assessment and Plan Assessment and plan (1) Pain: Status: Acute Assessment and plan: 78-year-old man with a distended gallbladder on ultrasound but without radiographic evidence of cholecystitis. He does not have any tenderness on exam as well. Lastly, he does not have gallstones which would make this a calculus cholecystitis. That actually may be plausible considering all the other issues that are going on with him. He has an abdominal aortic aneurysm that has an ongoing endoleak that is reportedly stable and being monitored. I am not sure exactly how long that has been going on and leaking and while some endoleaks do not require intervention, I cannot help but wonder if he is having some sort of transient, chronic mesenteric ischemia related to the endoleak. It is unclear to me exactly what type of endoleak he has which would need to be diagnosed with an angiogram but if it is a type II endoleak and he is having retrograde flow from his mesenteric vasculature, he could be having transient ischemia of the bowel on and off. I certainly do not think that this is his gallbladder and if it is, again, it is acalculus cholecystitis which is usually a secondary infection in the setting of more primary problems. If it is simply that, it can be diagnosed with a HIDA scan and he can get a percutaneous cholecystostomy drain which should take care of the problem. That is not something offered here at [facility]. I think a lot more information is needed for multiple management perspectives and specialty services that are not offered here. In particular, vascular surgery needs to weigh in on exactly what type of endoleak this is, the urgency of repair or the possibility that none is needed, and what the chances are that this is causing some degree of transient/ongoing chronic mesenteric ischemia because of the effect the endoleak is having on blood flow. I only bring this up because I think this most likely explanation for the on and off abdominal pain that it sounds like he has on a daily basis. With his elevated troponin and his chest discomfort and elevated liver enzymes and recent fall and possibly acalculus cholecystitis, I cannot help but wonder if he is in some sort of low flow state on and off for reasons for not clear of yet. We do not have capability to percutaneously drain his gallbladder although we do have the possibility of getting a HIDA scan tomorrow. Again, I do NOT think that any of his subjective complaints are related to his gallbladder. I do NOT think his gallbladder is the reason he has been falling and I do not think it is the cause of anything else. If the gallbladder is a problem, it is secondary to all the other issues that are going on with him. I do not think he should be admitted here considering the complexity of his other issues and the reality that we cannot provide percutaneous drainage if that is what he needs for his gallbladder. Operative, cholecystectomy is not part of the management strategy in this particular case. All of this was discussed in detail with the attending emergency room physician General surgery signing off. History of Present Illness Narrative: Asked to assess patient for possible chronic cholecystitis by ED provider. Patient has had multiple ER visits over the last few days in addition to the last few months and even the last few years. Has multiple medical problems. brought back into the ER today because she is not well and had a horrible night. In her own words, she says he had chest pain all night long. The patient and his say he has had abdominal pain for months. It never gets better. Some days are worse than others. Yesterday he fell for no obvious reason. That seems to have made the abdominal pain worse. He describes it all over. An ultrasound was done today that showed a distended gallbladder. No gallstones. No pericholecystic fluid. No wall thickening. He does have an elevated white count and elevated alk phos. Bilirubin is slightly elevated today. PFSH All Active Problems Fall (Acute) Atypical chest pain (Acute) Abnormality detected on rectal examination of prostate (Acute) Elevated PSA (Acute) Arthritis of carpometacarpal (CMC) joint of left thumb (Acute) Trigger thumb, left thumb (Acute) Pain (Acute) Lesion of vertebra (Acute) Abdominal aortic aneurysm (AAA) >39 mm diameter (Acute 01/05/17) 42cm -201606/25/17 4.4 cm distal abdominal aortic aneurysm 4.20 cm 05/14/18 4.50 cm 12/12/18 4.60x4.50 cm 06/12/19 4.60x4.60 cm repeat 1 yr Depressive disorder, not elsewhere classified (Chronic 05/21/12) Diaphragmatic hernia (Acute 05/21/12) Diverticulosis of colon (without mention of hemorrhage) (Acute 05/21/12) Decreased cardiac ejection fraction (Acute 02/07/17) Diabetes mellitus (Acute 05/31/16) Gastroesophageal reflux disease without esophagitis (Acute 05/21/12) Obesity, unspecified (Acute 08/03/11) Osteoarthritis of first metatarsophalangeal joint (Acute 11/04/14) Osteoarthritis of right knee (Acute 12/24/14) Dr. 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 (Chronic) Vertebral artery occlusion (Acute) Gait disorder (Acute) Alzheimer's dementia (Acute) Trigger finger, right index finger (Acute) Trigger finger, left index finger (Acute) History of total right hip replacement (Acute 08/15/22) Muscle spasm of right lower extremity (Acute) Pain in hip region after hip replacement (Acute) Periprosthetic fracture around internal prosthetic right hip joint (Acute) Closed fracture of anterior column of right acetabulum (Acute) Vascular dementia (Acute) Bradycardia (Acute) Medical History 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 Suspicion of three column injury. [facility] D/C summary (05/20/18-05/27/18). AAA (abdominal aortic aneurysm) 4.6cm in 2020, follow up in 1 year Obstructive sleep apnea (adult) (pediatric) (05/21/12) SYBIL -Beverly Maldonado Essential hypertension (11/22/12) Surgical History S/P trigger finger release early 1999s at [facility] Hx of [id number] bypass stent 06/06/21 Hx of aortic aneurysm repair stents, 04/25/21 S/P vasectomy S/P right knee arthroscopy 1969' S/P cataract surgery bilateral S/P left inguinal hernia repair (~2019) x2 Tonsillectomy and adenoidectomy Great toe implant (12/01/14) Jason Aviles Family History Mother Substance abuse Diabetes Essential hypertension Hyperlipidemia Skin cancer FH: ovarian cancer Alcohol abuse Sister Neoplasm lung Ca with Mets Macular degeneration Father Alcohol abuse Depression Social History Smoking/Tobacco Use Status: Former Tobacco Use Smoking risk assessment performed?: Yes Alcohol Intake: current Alcohol Intake frequency: a few times a month Alcohol type: beer and hard liquor Drug use: Never Substance use type: does not use Household members: spouse Housing: house Number of Children: 3 number of grandchildren: 9 Communication Needs: Corrective Lenses current occupation: retired Pets and animals: Yes Pets and animals: cat(s) Current gender identity: male What is your relationship status?: Panel score (0-1 are the most socially isolated patients): 1 What type of physical activity do you participate in: additional Details: Pt exercise group Seatbelt use: always Drive intox or ride w/intox hazmat 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 I could not elicit any tenderness anywhere to examination. Results Last Vital Signs Temp 98.3 F 07/24/23 14:49 Pulse 61 07/24/23 16:31 Resp 18 07/24/23 16:31 BP 192/95 H 07/24/23 16:31 Pulse Ox 93 07/24/23 16:31 Labs 07/24/23 14:56 07/24/23 14:56 Labs: Laboratory Results - last 24 hr 07/24/23 14:56 WBC 13.58 H RBC 5.14 Hgb 15.5 Hct 46.4 MCV 90 MCH 30.2 MCHC 33.4 RDW 14.4 H Plt Count 151 MPV 10.4 Immature Gran % 0.0 Neutrophils % 76.0 Band Neutrophils % 2 Lymphocytes % 4.0 Atypical Lymphs % 5 Monocytes % 13.0 Eosinophils % 0.0 Basophils % 0.0 Nucleated RBC % 0.0 Absolute Neutrophils 10.59 H Absolute Lymphocytes 1.22 Absolute Monocytes 1.77 H Absolute Eosinophils 0.00 Absolute Basophils 0.00 RBC Morphology Normal Sodium 138 Potassium 3.3 L Chloride 101 Carbon Dioxide 22.9 Anion Gap 14.1 H BUN 18 Creatinine 1.1 Est GFR (CKD-EPI 2020) 69.14 Glucose 202 H Calcium 9.7 Total Bilirubin 1.2 H AST 44 H ALT 48 Alkaline Phosphatase 296 H Troponin I 114 H* Total Protein 8.0 Albumin 4.1 Lipase 56
[2023-07-24 18:49] LABS: Troponin I 82 ng/L (< or =60)
[2023-07-24] MEDS: Normal Saline - Diluent 50 ML VIAL IJ (19:42)
[2023-07-24] MEDS: Omnipaque 350 MG/ML 100 ML BTL IJ (19:43)
[2023-07-24] MEDS: Normal Saline Flush 10 ML SYR IVP (19:44)
--- NOTE | 2023-07-24 20:11 | DI.CT_ITS ---
Exam(s) CT BRAIN NECK CTA EXAM: CT BRAIN NECK CTA CLINICAL HISTORY: LLE weakness. TECHNIQUE: Imaging Protocol: Axial CT angiography was performed with multi-slice acquisition and mu lti-planar and/or 3D reconstructions. CONTRAST MATERIAL: Intravenous: Omnipaque 350 contrast volume:85 mL COMPARISON: CT CT HEAD CERVICAL SPINE WO from 07/23/[address] THORAX ABDOMEN CTA from 07/23/2023 FINDINGS: CT Head W/O and W: Ventricles and Extra axial spaces: Normal in size and morphology for the patient's age. Hemorrhage: None. Cerebral parenchyma: There are areas of decreased attenuation in the white matter consistent with chr onic microvascular ischemic disease. No evidence of an acute territorial infarct. Midline shift: None. Brainstem/Cerebellum: Normal. Calvarium: Normal. Visualized Paranasal sinuses/Mastoids: Clear. Soft Tissues: Unremarkable. Enhancement: Unremarkable. CTA Neck W: Atherosclerosis is present. Common Carotid: Right: No dissection, occlusion or significant stenosis. Left: No dissection, occlusion or significant stenosis. External Carotid: Right: No occlusion or significant stenosis. Left: No occlusion or significant stenosis. Internal Carotid: Right: No dissection, occlusion or significant stenosis. Left: No dissection, occlusion or significant stenosis. Vertebral Artery: Right: No dissection, occlusion or significant stenosis. Left: There is marked stenosis at the origin of the left vertebral artery. There appears to be occl usion of the left vertebral artery at the C1-C2 level. Lung Apices: Normal. Bones: Within normal limits for the patient's age. Soft Tissues: Normal. Thyroid gland: Unremarkable. CTA Brain W: Atherosclerosis is present. Internal Carotid Arteries: No occlusion or significant stenosis. Anterior Cerebral Arteries: The left anterior cerebral artery receives its blood flow via the anterio r communicating artery from the right circulation. Right: No aneurysm, occlusion or significant stenosis. Left: No aneurysm, occlusion or significant stenosis. Middle Cerebral Arteries: Right: No aneurysm, occlusion or significant stenosis. Left: No aneurysm, occlusion or significant stenosis. Posterior Cerebral Arteries: Right: No aneurysm, occlusion or significant stenosis. Left: No aneurysm, occlusion or significant stenosis. Vertebral Arteries: Right: No aneurysm, occlusion or significant stenosis. Left: No aneurysm, occlusion or significant stenosis. Basilar Artery: No aneurysm, occlusion or significant stenosis. IMPRESSION: 1. No large vessel occlusion or significant stenosis on the CT angiography of the head. 2. No acute intracranial process. 3. 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 RADIATION DOSE DELIVERED: 2,712mGy.cm Total DLP DATA REPOSITORY: All CT scans at this facility are submitted to the National Radiology Data Registry (NRDR) Dose Index Registry (DIR) with the [employer] (ACR). RADIATION OPTIMIZATION: All CT scans at this facility use at least one of these dose optimization te chniques: automated exposure control; mA and/or kV adjustment per patient size (includes targeted exa ms where dose is matched to clinical indication); or iterative reconstruction.
--- NOTE | 2023-07-24 20:48 | DI.VRAD_ITS ---
PROCEDURE INFORMATION: Exam: CTA Head With Contrast, Arteriography Exam date and time: 07/24/2023 7:54 PM Age: 78 years old Clinical indication: Other: Lle weakness TECHNIQUE: Imaging protocol: Computed tomographic angiography of the head with contrast. Exam focused on the arteries. 3D rendering (Not supervised by radiologist): MIP and/or 3D reconstructed images were created by the technologist. Contrast material: OMNIPAQUE 350; Contrast volume: 85 ml; Contrast route: INTRAVENOUS (IV); COMPARISON: MR ANGIO BRAIN WO 10/29/2020 11:18 AM FINDINGS: ANTERIOR CIRCULATION: Right internal carotid artery: Intracranial segment is patent with no significant stenosis. No aneurysm. Right middle cerebral artery: No occlusion or significant stenosis. No aneurysm. Right anterior cerebral artery: No occlusion or significant stenosis. No aneurysm. Left internal carotid artery: Intracranial segment is patent with no significant stenosis. No aneurysm. Left middle cerebral artery: No occlusion or significant stenosis. No aneurysm. Left anterior cerebral artery: No occlusion or significant stenosis. No aneurysm. POSTERIOR CIRCULATION: Right vertebral artery: No occlusion or significant stenosis. No aneurysm. Left vertebral artery: No occlusion. Severe stenosis in the intradural segment No aneurysm. Basilar artery: No occlusion or significant stenosis. No aneurysm. Right posterior cerebral artery: No occlusion or significant stenosis. No aneurysm. Left posterior cerebral artery: No occlusion or significant stenosis. No aneurysm. Brain: No definite mass, mass effect, or midline shift. Cerebral ventricles: No ventriculomegaly. Bones/joints: Unremarkable. No acute fracture. Soft tissues: Unremarkable. IMPRESSION: No large vessel occlusion. Severe stenosis in the intradural segment PROCEDURE INFORMATION: Exam: CTA Neck With Contrast Exam date and time: 07/24/2023 7:54 PM Age: 78 years old Clinical indication: Other: Lle weakness TECHNIQUE: Imaging protocol: Computed tomographic angiography of the neck with contrast. Exam focused on the cervical segments of the vasculature. 3D rendering (Not supervised by radiologist): MIP and/or 3D reconstructed images were created by the technologist. Contrast material: OMNIPAQUE 350; Contrast volume: 85 ml; Contrast route: INTRAVENOUS (IV); COMPARISON: CT HEAD CERVICAL SPINE WO 07/23/2023 5:27 PM FINDINGS: Right common carotid artery: No stenosis. No dissection or occlusion. Right internal carotid artery: No stenosis of the extracranial segment. No dissection or occlusion. Right external carotid artery: No occlusion or stenosis of the origin. Left common carotid artery: No stenosis. No dissection or occlusion. Left internal carotid artery: No stenosis of the extracranial segment. No dissection or occlusion. Left external carotid artery: No occlusion or stenosis of the origin. Right vertebral artery: No stenosis. No dissection or occlusion. Left vertebral artery: Severe stenosis at the origin and the suboccipital segment Soft tissues: No significant soft tissue swelling. Bones/joints: No acute fracture. IMPRESSION: No large vessel occlusion. Severe stenosis at the origin of the left vertebral artery and left suboccipital segment. REFERENCES: NASCET CRITERIA. The degree of stenosis in the cervical segment of the internal carotid artery is based on NASCET criteria. Normal is no stenosis. Mild is less than 50% stenosis. Moderate is 50-69% stenosis. Severe is 70% to 99% stenosis. Total occlusion is no detectable patent lumen. Dictated and Authenticated by: Tl Beck MD. Ordering:MATT Guidry MD
== END 2023-07-24 22:14 | disposition short-term general hospital (02) ==
PROVIDERS: Emergency Provider Emergency Medicine; PCP Nurse Practitioner Family
DX: R07.9 Chest pain, unspecified (principal); R10.11 Right upper quadrant pain; G82.20 Paraplegia, unspecified; Z91.81 History of falling
CPT/HCPCS: 00123; 36415; 51701; 70496; 70498; 80053; 83690; 93005; 96361; 96365; 96375; 96376; 99291; 76705; 84484; 85025; 93010; J2270; J2405; J2543; J3490